=== PATIENT | male | born 1940 | race Caucasian/White ===

== ENCOUNTER → 2016-05-04 | Outpatient (CLI) | payer OTHER, MEDICARE ==
[~2016-05-04] MED LIST: AMLO-114 PO; AMR2 PO; ATOR-22 PO; FENO134C2 PO; FINA5TAB PO; MELO15TA3 PO; METF750T PO
== END | disposition home or self-care (01) ==
LOC: C.LAB 11:04
PROVIDERS: ATTEND Urology
DX: Z12.5 Encounter for screening for malignant neoplasm of prostate (principal)

== ENCOUNTER → 2016-07-19 | Outpatient (CLI) | payer OTHER, MEDICARE ==
[2016-07-19 12:39] LABS: HEMATOCRIT 37.1 % (42-52); MEAN CELL VOLUME 90.3 fL (80-100); MEAN CORPUSCULAR HEMOGLOBIN 31.1 pg (25-34); MEAN CORPUSCULAR HGB CONC 34.5 g/dl (32-36); PLATELET COUNT 190 K/uL (130-400); RED BLOOD COUNT 4.11 M/uL (4.7-6.1); WHITE BLOOD COUNT 5.79 K/uL (4.8-10.8)
[2016-07-19 12:43] LABS: URINE APPEARANCE CLEAR (CLEAR); URINE BILIRUBIN NEG (NEG); URINE COLOR YELLOW; URINE EPITHELIAL CELL AUTO 20-30 /lpf (0-5); URINE NITRITE NEG (NEG); URINE SPECIFIC GRAVITY 1.023 (1.000-1.030); UROBILINOGEN NEG (NEG)
[2016-07-19 12:44] LABS: MANUAL MICROSCOPIC REQUIRED? NO; REVIEW REQ? NO
[2016-07-19 13:05] LABS: ESTIMATED AVERAGE GLUCOSE 134 mg/dl; HA1C FLAG Normal (Normal)
[2016-07-19 13:35] LABS: BLOOD UREA NITROGEN 21 mg/dl (7-18); BUN/CREATININE RATIO 13.2 (10-20); CALCIUM 9.1 mg/dl (8.5-10.1); CARBON DIOXIDE 25 mmol/L (21-32); CHLORIDE 108 mmol/L (98-107); GLUCOSE 223 mg/dl (70-99); PHOSPHORUS 2.9 mg/dl (2.5-4.9); POTASSIUM 4.5 mmol/L (3.5-5.1); SODIUM 143 mmol/L (136-145)
[2016-07-19 14:38] LABS: URINE PROTIEN/CREAT RATIO 0.1 (0-0.2); URINE TOTAL PROTEIN 8.6 mg/dl (0-11.9)
== END | disposition home or self-care (01) ==
LOC: C.LABPBG 10:58
PROVIDERS: ATTEND Internal Medicine Nephrology
DX: N18.3 Chronic kidney disease, stage 3 (moderate) (principal); E11.9 Type 2 diabetes mellitus without complications; E55.9 Vitamin D deficiency, unspecified

== ENCOUNTER → 2016-07-22 | Outpatient (CLI) | payer OTHER, MEDICARE ==
--- NOTE | 2016-07-22 11:43 | DIAGNOSTIC IMAGING REPORT ---
RENAL ULTRASOUND CLINICAL HISTORY: N18.3 Chronic renal disease, stage 3 (moderate)[id number] COMPARISON STUDY: Abdomen and pelvis CT 07/16/2012. FINDINGS: Right kidney: 10.2 cm in length. No hydronephrosis. Slight increased cortical echogenicity and mild cortical lobulation/scarring. Left kidney: 11.7 cm in length. No hydronephrosis. Slight increased cortical echogenicity and mild cortical lobulation/scarring. There is a 1.1 cm cyst within the upper pole the left kidney. Bladder: Prostate gland is mildly enlarged. No bladder wall thickening. Bilateral ureteral jets are identified. IMPRESSION: 1. Mild bilateral cortical renal scarring/lobulation. 2. Slight increased cortical echogenicity suggestive of medical renal disease. 3. No hydronephrosis. Electronically signed by: Nigel Cortes M.D. 07/22/2016 11:41 AM Dictated Date/Time: 07/22/2016 11:38 AM
== END | disposition home or self-care (01) ==
LOC: C.ULTR 10:43
PROVIDERS: ATTEND Internal Medicine Nephrology
DX: N18.3 Chronic kidney disease, stage 3 (moderate) (principal)

== ENCOUNTER → 2017-03-21 | Outpatient (CLI) | payer OTHER, MEDICARE ==
[2017-03-21 13:53] LABS: ALBUMIN 3.8 gm/dl (3.4-5.0); BLOOD UREA NITROGEN 20 mg/dl (7-18); CALCIUM 9.3 mg/dl (8.5-10.1); CARBON DIOXIDE 26 mmol/L (21-32); CREATININE 1.61 mg/dl (0.60-1.40); GLUCOSE 161 mg/dl (70-99); POTASSIUM 4.2 mmol/L (3.5-5.1); SODIUM 141 mmol/L (136-145)
[2017-03-21 13:54] LABS: PHOSPHORUS 2.9 mg/dl (2.5-4.9)
== END | disposition home or self-care (01) ==
LOC: C.LABPBG 10:13
PROVIDERS: ATTEND Internal Medicine Nephrology
DX: N18.3 Chronic kidney disease, stage 3 (moderate) (principal)

== ENCOUNTER → 2017-04-25 | Outpatient (CLI) | payer OTHER, MEDICARE | END | disposition home or self-care (01) | LOC: C.LABPBG 10:10 | PROVIDERS: ATTEND Urology | DX: N40.1 Benign prostatic hyperplasia with lower urinary tract symptoms (principal) ==

== ENCOUNTER → 2017-06-23 | Outpatient (CLI) | payer OTHER, MEDICARE ==
[2017-06-23 13:45] LABS: HEMATOCRIT 35.1 % (42-52); HEMOGLOBIN 12.4 g/dL (14.0-18.0); MEAN CELL VOLUME 89.8 fL (80-100); MEAN CORPUSCULAR HEMOGLOBIN 31.7 pg (25-34); MEAN CORPUSCULAR HGB CONC 35.3 g/dl (32-36); MEAN PLATELET VOLUME 9.6 fL (7.4-10.4); PLATELET COUNT 160 K/uL (130-400); RED CELL DISTRIBUTION WIDTH CV 13.5 % (11.5-14.5); RED CELL DISTRIBUTION WIDTH SD 44.1 fL (36.4-46.3); WHITE BLOOD COUNT 6.14 K/uL (4.8-10.8)
[2017-06-23 14:08] LABS: HEMOGLOBIN A1C 5.7 % (4.5-5.6)
[2017-06-23 17:42] LABS: ALBUMIN 3.9 gm/dl (3.4-5.0); ALT/SGPT 32 U/L (12-78); AST/SGOT 16 U/L (15-37); BLOOD UREA NITROGEN 26 mg/dl (7-18); CALCIUM 8.8 mg/dl (8.5-10.1); CARBON DIOXIDE 25 mmol/L (21-32); CHOLESTEROL 105 mg/dl (0-200); CREATININE 1.56 mg/dl (0.60-1.40); GLUCOSE,FASTING 141 mg/dl (70-99); POTASSIUM 4.7 mmol/L (3.5-5.1); SODIUM 141 mmol/L (136-145)
[2017-06-23 17:51] LABS: ALKALINE PHOSPHATASE 44 U/L (45-117); LDL CHOLESTEROL (DIRECT) 57 mg/dl; TOTAL PROTEIN 7.2 gm/dl (6.4-8.2)
== END | disposition home or self-care (01) ==
LOC: C.LABPBG 11:17
PROVIDERS: ATTEND Internal Medicine Cardiovascular Disease
DX: E11.9 Type 2 diabetes mellitus without complications (principal); Z98.61 Coronary angioplasty status; Z79.899 Other long term (current) drug therapy; Z79.82 Long term (current) use of aspirin; I10 Essential (primary) hypertension; E78.5 Hyperlipidemia, unspecified

== ENCOUNTER → 2017-09-26 | Outpatient (CLI) | payer OTHER, MEDICARE ==
[~2017-09-26] MED LIST changes: -AMLO-114 PO; +AMLO10TA3 PO
[2017-09-26 13:14] LABS: ALBUMIN 3.7 gm/dl (3.4-5.0); BLOOD UREA NITROGEN 21 mg/dl (7-18); CALCIUM 8.4 mg/dl (8.5-10.1); CARBON DIOXIDE 24 mmol/L (21-32); GLUCOSE 162 mg/dl (70-99); PHOSPHORUS 3.2 mg/dl (2.5-4.9); POTASSIUM 4.5 mmol/L (3.5-5.1); SODIUM 139 mmol/L (136-145)
== END | disposition home or self-care (01) ==
LOC: C.LABPBG 10:54
PROVIDERS: ATTEND Internal Medicine Nephrology
DX: N18.3 Chronic kidney disease, stage 3 (moderate) (principal)

== ENCOUNTER 2018-03-23 04:50 | Inpatient (IN) ==
--- NOTE | 2018-03-01 13:05 | PAT Medication Instructions ---
Medication Instructions Date of Service March 01, 2018 Home Medications atorvastatin [Lipitor]20 mg PO HS clopidogrel [Plavix]75 mg PO QPM fenofibrate ptctibvsqjazfvic610 mg PO QPM finasteride [Proscar]5 mg PO QPM glipizide5 mg PO QAM kbkbcejhue21 mg PO QAM magnesium ygfoi125 mg PO QAM zmqicxjxu014 mg PO BID nitroglycerin [Nitrostat]1 tab SUBLINGUAL UD PRN pptdiputpd70 mg PO QAM oxybutynin chloride5 mg PO BID ASK your prescriber and surgeon clopidogrel [Plavix]75 mg PO QPM STOP taking 24 hours before surgery fenofibrate jtddzsppqbymxyzl882 mg PO QPM DO NOT take the morning of surgery glipizide5 mg PO QAM dvmzznegnl18 mg PO QAM magnesium kovbc807 mg PO QAM hnffwedue960 mg PO BID Take morning of surgery With a small sip of water, OTHERWISE NOTHING TO EAT OR DRINK AFTER MIDNIGHT: nitroglycerin [Nitrostat]1 tab SUBLINGUAL UD PRN (if needed) zracpmxocc03 mg PO QAM oxybutynin chloride5 mg PO BID Take evening before surgery atorvastatin [Lipitor]20 mg PO HS finasteride [Proscar]5 mg PO QPM fepsvpcng261 mg PO BID nitroglycerin [Nitrostat]1 tab SUBLINGUAL UD PRN (if needed) oxybutynin chloride5 mg PO BID Other Notes If you have any questions please call us at [phone] or [phone] or [phone] or [phone]
--- NOTE | 2018-03-02 10:25 | Anesthesiology Consultation ---
Date of Service March 02, 2018 Assessment & Plan (1) Encounter for pre-operative examination: Plan: - Check BSG AM DOS - Cardio= 02/28/18= reviewed 04/2017 stress test.. "no cardiac contraindication to proceeding on with the planned right shoulder surgery... he will require perioperative cardiac monitoring in light of his history of severe ischemic heart disease." Plavix instructions per surgeon/cardio; patient continuing ASA perioperatively. Chart Review Chart Review: Acceptable Risk for Surgery and Patient seen in Pre Admission Testing Teaching & Discussion Pre-Anesthesia Teaching/Discussion Notes: Instructed NPO after midnight before surgery,except medications with 15 cc of water. Medication instructions provided according to the PAT guidelines. History Surgery Operation Date: 03/23/18 07:10 Proposed Procedures p Right Total Shoulder Arthroplasty Mick - Israel Patrick MD Height/Weight Height: 5 ft 8 in Weight: 96.1 kg Allergies Allergy/AdvReac Type Severity Reaction Status Date / Time No Known Allergies Allergy Mild Verified 02/23/18 09:31 Medications Home Medications Medication Instructions Recorded Confirmed Last Taken atorvastatin [Lipitor] 20 mg PO HS 02/23/18 02/23/18 Unknown clopidogrel [Plavix] 75 mg PO QPM 02/23/18 02/23/18 Unknown fenofibrate nanocrystallized 160 mg PO QPM 02/23/18 02/23/18 Unknown [Tricor] finasteride [Proscar] 5 mg PO QPM 02/23/18 02/23/18 Unknown glipizide 5 mg PO QAM 02/23/18 02/23/18 Unknown lisinopril 10 mg PO QAM 02/23/18 02/23/18 Unknown magnesium oxide 400 mg PO QAM 02/23/18 02/23/18 Unknown metformin 750 mg PO BID 02/23/18 02/23/18 Unknown nitroglycerin [Nitrostat] 1 tab SUBLINGUAL UD PRN 02/23/18 02/23/18 Unknown omeprazole 20 mg PO QAM 02/23/18 02/23/18 Unknown oxybutynin chloride 5 mg PO BID 02/23/18 02/23/18 Unknown aspirin [Aspirin Low Dose] 1 tab PO HS 03/02/18 03/02/18 Unknown metoprolol succinate 1 tab PO DAILY 03/02/18 03/02/18 Unknown Past Medical History Medical History BPH (benign prostatic hyperplasia) CAD (coronary artery disease) STENTS X 5 TOTAL (MOST RECENT 2015= STENTS X3) CKD (chronic kidney disease) BASELINE CREATININE 1.5-1.6 PER CHART REVIEW Diabetes mellitus, type 2 NIDDM GERD (gastroesophageal reflux disease) CONTROLLED Hyperlipidemia Hypertension Kidney stones Myocardial Infarction 7+ YEARS AGO Obesity Osteoarthritis Past Family History Family History Mother Family hx of colon cancer Past Surgical History Surgical History H/O cystoscopy WITH STENT/STONE REMOVAL History of cardiac cath 01/2013= STENTS X 1 05/2013= STENT X 1 04/2015= STENTS X 3 History of cholecystectomy History of total hip arthroplasty LEFT Hx of transurethral resection of prostate Past Anesthesia History No Hx of Anesthesia Complications and No Family Hx of Anesthesia Complications History of PONV No Motion Sickness Screening History of Motion Sickness: No Social History Smoking Status: Former smoker tobacco type: cigarettes Do You Dip or Chew Tobacco: No (QUIT 30 YRS AGO) Smoking End Date: QUIT 30 YEARS AGO Hx Alcohol Use: No Hx Substance Use: No Exercise / Class Metabolic Activity III < 4 Walking/Shop/Light housework Review of Systems Reflux controlled. Right shoulder pain with RUE radiculopathy/neuropathy. Patient denies chest pain, shortness of breath, cough, wheezing, palpitations. Physical Exam Vital Signs VITALS BP 124/76 P 69 TEMP 97.8 SP02 97%RA RESP 18 Full neck and c-spine range of motion. Full TMJ range of motion. TMD 3 finger breaths Mallampati Score 2 Dentition: full dentures upper/lower; edentulous Lungs: clear throughout to auscultation Cardiac: regular rate and rhythm, no murmurs noted Spine: normal Carotid arteries: negative bruit Extremities: no edema Testing Electrocardiogram Date: 02/28/18 SR with first degree AVB at 92bpm. Low voltage QRS. RBBB. NS ST/TWA. Echocardiogram Date: 05/01/17 EF 55%. No RWMA. AV/MV sclerotic changes. Mitral annular calcification. Mild UT/ TI/PI. Mild ascending aorta dilation 4.2cm. Stress Test Date: 05/24/17 Type: nuclear (LEXISCAN) Normal myocardiac perfusion SPECT images without evidence for induced ischemia. LVEF 65%. Inconclusive stress EKG secondary to baseline ST/TWA. Laboratory Results 03/02/18 10:58 Blood Type A Negative 03/02/18 10:58 Antibody Screen NEGATIVE 03/02/18 10:58 PT 10.6 Seconds (9.0-12.0) 03/02/18 10:58 INR 1.1 (0.9-1.1) 03/02/18 10:58 APTT 25.4 Seconds (21.0-31.0) 03/02/18 10:58 Hemoglobin A1c 5.8 % (4.5-5.6) H 03/02/18 10:58 Urine Color Yellow 03/02/18 10:58 Urine Appearance Clear (Clear) 03/02/18 10:58 Urine pH 5.0 (4.5-7.5) 03/02/18 10:58 Ur Specific [place] 1.013 (1.000-1.030) 03/02/18 10:58 Urine Protein Negative (Negative) 03/02/18 10:58 Urine Glucose (UA) Negative (Negative) 03/02/18 10:58 Urine Ketones Negative (Negative) 03/02/18 10:58 Urine Nitrite Negative (Negative) 03/02/18 10:58 Ur Leukocyte Esterase Negative (Negative) 03/02/18 10:58 02/06/18 SODIUM 143 POTASSIUM 4.6 CHLORIDE 108 CO2 26 BUN 20 CREATININE 1.57 GLUCOSE 132 HGBA1C 5.6%
[2018-03-02 11:45] LABS: Basophils # (auto) 0.02 K/uL (0-0.2); Basophils % (auto) 0.3 %; Eosinophils # (auto) 0.18 K/uL (0-0.5); Eosinophils % (auto) 2.7 %; Hemoglobin 12.2 g/dL (14.0-18.0); Immature Granulocytes # (auto) 0.02 K/uL (0.00-0.02); Immature Granulocytes % (auto) 0.3 %; Lymphocytes # (auto) 1.61 K/uL (1.2-3.4); Mean Corpuscular Hgb Conc 34.9 g/dL (32-36); Mean Corpuscular Volume 90.9 fL (80-100); Mean Platelet Volume 9.8 fL (7.4-10.4); Monocytes # (auto) 0.59 K/uL (0.11-0.59); Monocytes % (auto) 8.8 %; Neutrophils % (auto) 63.9 %; Platelet Count 156 K/uL (130-400); RDW Coefficient of Variation 13.4 % (11.5-14.5); RDW Standard Deviation 44.3 fL (36.4-46.3); Red Blood Count 3.85 M/uL (4.7-6.1); White Blood Count 6.72 K/uL (4.8-10.8)
[2018-03-02 11:46] LABS: Appearance Urine Clear (Clear); Bilirubin Urine Negative (Negative); Color Urine Yellow; Glucose Urine UA Negative (Negative); Ketones Urine Negative (Negative); Leukocyte Esterase Urine Negative (Negative); Nitrite Urine Negative (Negative); Protein Urine Negative (Negative); Specific Gravity Urine 1.013 (1.000-1.030); Urobilinogen Urine Negative (Negative)
[2018-03-02 12:11] LABS: Estimated Average Glucose 120 mg/dl; INR 1.1 (0.9-1.1); Partial Thromboplastin Time 25.4 Seconds (21.0-31.0); Prothrombin Time 10.6 Seconds (9.0-12.0)
--- NOTE | 2018-03-05 15:32 | History & Physical Report ---
Date of Service March 05, 2018 Assessment & Plan (1) Primary osteoarthritis, right shoulder: Treatment optiosn were discussed with the patient. He has failed conservative measures as above. Pain is affecting his activities of daily life. Risks, benefits and alternatives to surgery including but not limited to infection, DVT, pain, stiffness, need for revision surgery, damage to blood vessels, damage to nerves, PE, , were discussed with the patient and they wish to proceed. Plan will be for right shoulder reverse total shoulder arthroplasty. All questions were answered. He will follow up post operatively. Plans to return home with home physical therapy upon discharge. History of Present Illness Chief Complaint: Right Shoulder pain Primary Care Provider: Alfred Corrales Patient is a 77 year old male with significant right shoulder pain for the past several years. PMHx significant for MD, HTN, DM2, GERD, CKD, high cholesterol. He has failed conservative measures including cortisone injections and physical therapy. He would like to proceed with right shoulder reverse total shoulder arthroplasty. Patient denies headaches, sweats, fevers, chills, double vision, blurred vision, cough, sore throat, dysphagia, chest pain, sob, wheezing, n/v/d/ c, numbness, tingling, fatigue, urinary symptoms, mood disorders. ROS positive for right shoulder pain and stiffness. Allergies Allergy/AdvReac Type Severity Reaction Status Date / Time No Known Allergies Allergy Mild Verified 02/23/18 09:31 Home Medications Home Medications Medication Instructions Recorded Confirmed Type atorvastatin [Lipitor] 20 mg PO HS 02/23/18 02/23/18 History clopidogrel [Plavix] 75 mg PO QPM 02/23/18 02/23/18 History fenofibrate nanocrystallized 160 mg PO QPM 02/23/18 02/23/18 History [Tricor] finasteride [Proscar] 5 mg PO QPM 02/23/18 02/23/18 History glipizide 5 mg PO QAM 02/23/18 02/23/18 History lisinopril 10 mg PO QAM 02/23/18 02/23/18 History magnesium oxide 400 mg PO QAM 02/23/18 02/23/18 History metformin 750 mg PO BID 02/23/18 02/23/18 History nitroglycerin [Nitrostat] 1 tab SUBLINGUAL UD PRN 02/23/18 02/23/18 History omeprazole 20 mg PO QAM 02/23/18 02/23/18 History oxybutynin chloride 5 mg PO BID 02/23/18 02/23/18 History aspirin [Aspirin Low Dose] 1 tab PO HS 03/02/18 03/02/18 History metoprolol succinate 1 tab PO DAILY 03/02/18 03/02/18 History Past Med/Surg History Medical History BPH (benign prostatic hyperplasia) CAD (coronary artery disease) STENTS X 5 TOTAL (MOST RECENT 2015= STENTS X3) CKD (chronic kidney disease) BASELINE CREATININE 1.5-1.6 PER CHART REVIEW Diabetes mellitus, type 2 NIDDM GERD (gastroesophageal reflux disease) CONTROLLED Hyperlipidemia Hypertension Kidney stones Myocardial Infarction 7+ YEARS AGO Obesity Osteoarthritis Surgical History H/O cystoscopy WITH STENT/STONE REMOVAL History of cardiac cath 01/2013= STENTS X 1 05/2013= STENT X 1 04/2015= STENTS X 3 History of cholecystectomy History of total hip arthroplasty LEFT Hx of transurethral resection of prostate Family History Mother Family hx of colon cancer Social History Current Living Situation: Spouse Other Information That Helps Us Care for You: No Feels Safe at Home: Yes Safety Concerns: Feels Safe At This Time Smoking Status: Former smoker Tobacco Type: cigarettes Do You Dip or Chew Tobacco: No (QUIT 30 YRS AGO) Smoking End Date: QUIT 30 YEARS AGO Hx Alcohol Use: No Hx Substance Use: No Beliefs That Will Affect Care: None Preferred Language: Frisian Communication Ability: Effective Cupola Operator Required: No Review of Systems All systems reviewed & are unremarkable except as noted in HPI & below Physical Exam 2 Constitutional: well developed and well nourished; no acute distress Eyes: PERRL, conjunctivae normal, anicteric sclerae ENMT: external ear and nose normal, oropharynx normal Neck: trachea midline, no thyromegaly Respiratory: normal respiratory effort, lungs clear to auscultation Cardiovascular: RRR, no murmur, no edema Musculoskeletal: Right Shoulder-Pain ROM. Crepitus noted with passive motion. ER neutral, abduction to 80 degrees, FF to 100. Positive impingement signs. Skin: no rashes, warm and dry Neurologic: patellar DTR's 2+ bilat, sensation intact Psychiatric: A+Ox3, euthymic affect Results & Data Laboratory Results Lab Results 03/02/18 03/02/18 03/02/18 Range/Units 10:58 10:58 10:58 WBC 6.72 (4.8-10.8) K/uL RBC 3.85 L (4.7-6.1) M/uL Hgb 12.2 L (14.0-18.0) g/dL Hct 35.0 L (42-52) % MCV 90.9 (80-100) fL MCH 31.7 (25-34) pg MCHC 34.9 (32-36) g/dL RDW Std Deviation 44.3 (36.4-46.3) fL RDW Coeff of Raymond 13.4 (11.5-14.5) % Plt Count 156 (130-400) K/uL MPV 9.8 (7.4-10.4) fL Immature Gran % (Auto) 0.3 % Neut % (Auto) 63.9 % Lymph % (Auto) 24.0 % Bath % (Auto) 8.8 % Eos % (Auto) 2.7 % Baso % (Auto) 0.3 % Immature Gran # (Auto) 0.02 (0.00-0.02) K/uL Neut # (Auto) 4.30 (1.4-6.5) K/uL Lymph # (Auto) 1.61 (1.2-3.4) K/uL Bath # (Auto) 0.59 (0.11-0.59) K/uL Eos # (Auto) 0.18 (0-0.5) K/uL Baso # (Auto) 0.02 (0-0.2) K/uL PT 10.6 (9.0-12.0) Seconds INR 1.1 (0.9-1.1) APTT 25.4 (21.0-31.0) Seconds PTT Ratio 1.0 Estimat Average Glucose mg/dl Hemoglobin A1c (4.5-5.6) % Albumin 3.8 (3.4-5.0) gm/dl Urine Color Urine Appearance (Clear) Urine pH (4.5-7.5) Ur Specific [place] (1.000-1.030) Urine Protein (Negative) Urine Glucose (UA) (Negative) Urine Ketones (Negative) Urine Blood (Negative) Urine Nitrite (Negative) Urine Bilirubin (Negative) Urine Urobilinogen (Negative) Ur Leukocyte Esterase (Negative) Blood Type Antibody Screen 03/02/18 03/02/18 03/02/18 Range/Units 10:58 10:58 10:58 WBC (4.8-10.8) K/uL RBC (4.7-6.1) M/uL Hgb (14.0-18.0) g/dL Hct (42-52) % MCV (80-100) fL MCH (25-34) pg MCHC (32-36) g/dL RDW Std Deviation (36.4-46.3) fL RDW Coeff of Raymond (11.5-14.5) % Plt Count (130-400) K/uL MPV (7.4-10.4) fL Immature Gran % (Auto) % Neut % (Auto) % Lymph % (Auto) % Bath % (Auto) % Eos % (Auto) % Baso % (Auto) % Immature Gran # (Auto) (0.00-0.02) K/uL Neut # (Auto) (1.4-6.5) K/uL Lymph # (Auto) (1.2-3.4) K/uL Bath # (Auto) (0.11-0.59) K/uL Eos # (Auto) (0-0.5) K/uL Baso # (Auto) (0-0.2) K/uL PT (9.0-12.0) Seconds INR (0.9-1.1) APTT (21.0-31.0) Seconds PTT Ratio Estimat Average Glucose 120 mg/dl Hemoglobin A1c 5.8 H (4.5-5.6) % Albumin (3.4-5.0) gm/dl Urine Color Yellow Urine Appearance Clear (Clear) Urine pH 5.0 (4.5-7.5) Ur Specific [place] 1.013 (1.000-1.030) Urine Protein Negative (Negative) Urine Glucose (UA) Negative (Negative) Urine Ketones Negative (Negative) Urine Blood Negative (Negative) Urine Nitrite Negative (Negative) Urine Bilirubin Negative (Negative) Urine Urobilinogen Negative (Negative) Ur Leukocyte Esterase Negative (Negative) Blood Type A Negative Antibody Screen NEGATIVE Diagnostic Findings Right shoulder radiographs: Bone on bone glenohumeral joint, humeral head elevation, osteophyte off of the greater tuberosity and inferior humeral head, mild flattening of the glenoid.
[2018-03-23] MEDS ORDERED: GABAPENTIN 300 MG PO SCH (06:00)
[2018-03-23] MEDS ORDERED: ACETAMINOPHEN 500 MG TAB PO SCH (06:00)
[2018-03-23] MEDS ORDERED: ROPIVACAINE 0.5% HCL/PF 150 MG, BUPIVACAINE 0.5% MPF 30 ML, EPINEPHrine 30MG/30ML (OR U... INFIL SCH (06:00)
[2018-03-23] MEDS ORDERED: LR 15ML/HR IV SCH (06:00)
[2018-03-23] MEDS ORDERED: FAMOTIDINE 20 MG TAB PO SCH (06:00)
[2018-03-23] MEDS ORDERED: CeleBREX 200 MG CAP PO SCH (06:00)
[2018-03-23] MEDS ORDERED: CEFAZOLIN 2000MG 2,000 MG/15 ML SYR IV SCH (06:00)
[2018-03-23] MEDS ORDERED: dexAMETHasone 4 MG TAB PO SCH (06:00)
[2018-03-23] MEDS ORDERED: METOCLOPRAMIDE HCL 10 MG TABLET PO SCH (06:00)
[2018-03-23] MEDS ORDERED: DEXAMETHASONE SOD INJ 4 MG/ML VIAL ONE (06:20)
[2018-03-23] MEDS ORDERED: ONDANSETRON INJ 2 MG/ML 2 ML VIAL ONE (06:20)
[2018-03-23] MEDS ORDERED: PROPOFOL IV EMULSION 10 MG/ML 20 ML VIAL IV ONE (06:20)
[2018-03-23] MEDS ORDERED: SUCCINYLCHOLINE CHLORIDE 20 MG/ML 10 ML VIAL ONE (06:20)
[2018-03-23] MEDS ORDERED: fentaNYL citrate 100 MCG/2 ML VIAL ONE (06:20)
[2018-03-23] MEDS ORDERED: LIDOCAINE HCL 2% 2 ML VIAL/AMP(20MG/ML) INFIL ONE (06:20)
[2018-03-23] MEDS ORDERED: MIDAZOLAM HCL 1 MG/ML 2ML VIAL ONE (06:20)
[2018-03-23] MEDS ORDERED: POVIDONE-IODINE OP SOLN 30 ML BTL ONE (06:34)
[2018-03-23] MEDS ORDERED: ORTHO JOINT ANESTHETIC ONE (06:34)
[2018-03-23] MEDS ORDERED: THROMBIN FOR SOLN 20000 UNIT KIT ONE (06:35)
[2018-03-23] MEDS ORDERED: VANCOMYCIN HCL 1000MG/20ML VIAL ONE (06:35)
[2018-03-23] MEDS ORDERED: BACITRACIN INJ 50,000 UNIT VIAL ONE (06:35)
[2018-03-23] MEDS ORDERED: ROPIVACAINE 0.5% 5 MG/ML 30 ML VIAL ONE (06:38)
--- NOTE | 2018-03-23 06:47 | History & Physical Bridge Note ---
Date of Service March 23, 2018 History & Physical Bridge Note I have examined the patient, reviewed the History & Physical and in the interval since the performance of the History & Physical I have noted the following changes of clinical significance: no changes noted
[2018-03-23] MEDS ORDERED: ATROPINE SULFATE 0.1 MG/ML 10ML SYR IV PRN (07:09)
[2018-03-23] MEDS ORDERED: fentaNYL citrate 100 MCG/2 ML VIAL IV PRN (07:09)
[2018-03-23] MEDS ORDERED: ePHEDrine sulfate 50 MG/ML AMP IV PRN (07:09)
[2018-03-23] MEDS ORDERED: ONDANSETRON INJ 2 MG/ML 2 ML VIAL IV PRN ×2 (07:09→09:16)
[2018-03-23] MEDS ORDERED: ROCURONIUM BROMIDE 10 MG/ML 5 ML VIAL ONE (07:48)
--- NOTE | 2018-03-23 08:43 | Operative Report ---
Post Operative Report Pre & Post Diagnosis Operation Date: 03/23/18 07:00 Pre-Op Diagnosis: Right Shoulder Osteoarthritis, rotator cuff arthropathy Post-Op Diagnosis: Right Shoulder Osteoarthritis same plus tear of the long head of the biceps tendon Procedure Operation Date: 03/23/18 07:00 Actual Procedures p Right Reverse Total Shoulder Arthroplasty(Right) and biceps tenodesis- Israel Patrick MD Surgeon Israel Patrick MD [employer] Kd Downs PA-C Estimated Blood Loss 50 Findings Consistent with Post-Op Diagnosis Specimens Humeral head Drains 1 Hemovac Anesthesia Type General Regional Complications none Disposition Disposition: Recovery Room Indications The patient is a 77-year-old male long-standing arthritic changes in the right shoulder with humeral head elevation. He is failed conservative measures including injection, anti-inflammatories, rehab. He wishes to proceed with a right total shoulder arthroplasty, reverse Description of Procedure Risks, benefits and alternatives to surgery including, but not limited to, infection DVT, pain, stiffness, need for revision surgery, failure to relieve all symptoms, damage to blood vessels, damage to nerves, risk of anesthesia were discussed with the patient and they wished to proceed. The patient was identified. Laterality was confirmed and marked. The patient received a preoperative antibiotic as well as an interscalene block. They were transferred to the operating room and placed in the supine position and induced into general endotracheal anesthesia per the anesthesia staff. The patient was then safely transferred to a slight beachchair position. The patient was secured in the Tenet positioner. All pressure points were well padded. The shoulder was prepped and draped in the usual sterile manner with ChloraPrep. The arm was secured in the Spider fay. I made a longitudinal incision just lateral to the coracoid, sharply incising through the skin and utilizing Bovie electrocautery to achieve hemostasis. I identified the cephalic vein and mobilized it laterally with the deltoid. I mobilize the pectoralis and mobilize this medially releasing a small portion of the upper border of the pec tendon to improve visualization. I then identified and mobilized the conjoined tendon. I identified the long head of the biceps tendon. The long head of the biceps tendon had significant tendinosis and tearing proximally. I performed an in situ biceps tenodesis with interrupted #2 FiberWire suture. I then released the subscapularis. I pinned into place my humeral head version cutting guide and made my humeral head resection. I then sequentially reamed and sequentially broached. I then placed the trial humeral stem into the shoulder. I placed retractors around the glenoid and then excised the residual biceps tendon stump and glenoid labrum. I elevated the soft tissues and the inferior aspect of the glenoid to improve exposure and released tissues circumferentially. I then positioned and drilled for the central post for the glenoid plate. The glenoid plate was bone grafted with bone taken from the humeral head. I impacted the definitive glenoid plate into position and then placed a total of 4 compression screws that were then locked into position with locking caps. I then placed the glenosphere onto the plate and secured it with a locking screw. I then removed the trial humeral stem and placed the definitive humeral stem. I trialed off of the definitive stem. The definitive components used were [employer] Equinox: Preserve short humeral press-fit stem: 10 Standard glenoid plate Glenosphere: 42 Humeral tray:+ 0 Humeral polyethylene liner: + 2.5 I thoroughly irrigated the wound. Deep tissues were anesthetized with an orthomix solution. I then locked my definitive humeral tray into position with a torque limiting screw. I then impacted the definitive humeral polyethylene liner into position. I then reduced the shoulder. There was good range of motion and good stability after the reduction. The wound was again thoroughly irrigated and a Betadine soak was performed. A deep drain was placed. The deltopectoral interval was closed with interrupted #1 Ethibond suture. The subcutaneous tissue was closed with interrupted 2-0 Vicryl suture. The skin was closed with janay. A sterile dressing was applied. A sling was placed. All needle and sponge counts were correct at the end of the procedure. The patient was transferred to the PACU in stable condition without apparent complication. The PA-C was necessary for assistance with procedure for assistance in positioning, prepping, draping, retraction and closure. I attest to the content of the Intraoperative Record and any orders documented therein. Any exceptions are noted below.
[2018-03-23] MEDS ORDERED: NITROGLYCERIN SL 0.4 MG/TAB TAB SL PRN (09:14)
[2018-03-23] MEDS ORDERED: MAGNESIUM HYDROXIDE SUSP 30 ML UDC PO PRN (09:16)
[2018-03-23] MEDS ORDERED: METOCLOPRAMIDE HCL INJ 5 MG/ML 2 ML VIAL IV PRN (09:16)
[2018-03-23] MEDS ORDERED: BISACODYL 10 MG SUPP PR PRN (09:16)
[2018-03-23] MEDS ORDERED: TAMSULOSIN HCL 0.4 MG CAP PO PRN (09:16)
[2018-03-23] MEDS ORDERED: NALOXONE HCL 0.4 MG/1 ML VIAL/CARP IV PRN (09:16)
[2018-03-23] MEDS ORDERED: OXYCODONE HCL IR 5 MG TAB (IMMEDIATE RELEASE) PO PRN (09:16)
[2018-03-23] MEDS ORDERED: MoRPHine SULFATE 4 MG/ML 1 ML CARP\\VIAL IV PRN (09:21)
[2018-03-23] MEDS ORDERED: PHARMACY GLYCEMIC MGMT CONSULT PRN (09:41)
--- NOTE | 2018-03-23 09:50 | Anesthesiology Progress Note ---
Date of Service March 23, 2018 Anesthesia Post Procedure Vital Signs Vital Signs: Temp Pulse Pulse Resp BP Pulse Ox 03/23/18 09:40 63 16 120/67 99 03/23/18 09:30 66 18 125/71 100 03/23/18 09:20 67 17 132/70 95 03/23/18 09:13 96.8 F L 84 12 127/68 95 03/23/18 05:45 98.4 F 75 20 140/80 97 Notes Mental Status: alert / awake / arousable and participated in evaluation Patient Amnestic to Procedure: Yes Nausea / Vomiting: adequately controlled Pain: adequately controlled Airway Patency, RR, SpO2: stable & adequate BP & HR: stable & adequate Hydration State: stable & adequate Anesthetic Complications: no major complications apparent and Pt Satisfied with anesthetic care
--- NOTE | 2018-03-23 09:52 | XRay Report ---
XR shoulder RT min 2V routine CLINICAL HISTORY: Post shoulder surgery COMPARISON: None. DISCUSSION: There are postsurgical changes of a reverse total right shoulder arthroplasty. There is n o dislocation. Overlying skin janay and surgical drains. There is air within the soft tissues consi stent with recent surgery. IMPRESSION: Postsurgical changes of a reverse total right shoulder arthroplasty. Electronically signed by: Will Reyes M.D. 03/23/2018 9:50 AM
[2018-03-23] MEDS ORDERED: GLUCAGON FOR INJ 1 MG VIAL SQ PRN (10:39)
[2018-03-23] MEDS ORDERED: GLUCOSE 40% GEL 15 GM TUBE PO PRN (10:39)
[2018-03-23] MEDS ORDERED: DEXTROSE 50% 50 ML SYRINGE IV PRN (10:39)
[2018-03-23] MEDS ORDERED: CARBOHYDRATES FOR HYPOGLYCEMIA PO PRN (10:39)
[2018-03-23] MEDS ORDERED: GLUCOSE 10 TABS/TUBE PO PRN (10:39)
[2018-03-23] MEDS ORDERED: INSULIN GLARGINE SOLOSTAR 100 UNITS/ML 3 ML PEN SC ONE ×2 (10:45→21:00)
[2018-03-23] MEDS: INSULIN ASPART 100 UNITS/ML 3 ML PEN SC SCH ×3 (12:09→20:53)
[2018-03-23] MEDS: SODIUM CHLORIDE 0.9% 1000ML 1,000 ML IV SCH ×2 (12:24→20:59)
[2018-03-23] MEDS ORDERED: NURSING DECISION MEDICATION ONE (13:54)
[2018-03-23] MEDS ORDERED: COUGH DROP (SUGAR FREE) LOZ 24 LOZ/1 BOX BUCCAL PRN (13:57)
--- NOTE | 2018-03-23 14:17 | Pharmacy Report ---
Glycemic Control Consultation - Date of Service March 23, 2018 - Scope Scope: Glycemic Pharmacist consulted by Corwin Downs on 03/23/18 for glycemic control and to write orders per [facility] inpatient glycemic control protocol - Objective Weight: 97.6 kg Accuchecks BSG (last 24hrs): 03/23/18 03/23/18 03/23/18 05:31 09:19 11:04 POC Glucose 159 H 172 H 215 H HbA1c: Hemoglobin A1c 5.8 % (4.5-5.6) H 03/02/18 10:58 - Recent Pertinent Medications Outpatient Anti-diabetic Regimen: * Glipizide ER 5 mg qAM * Metformin ER 750 mg BID * A1c = 5.8 % 03/02/18 Risk Factors for Insulin Resistance: * Steroids: Decadron 8 mg po preop + Decadron 4 mg IV intraop * Recent Surgery: POD 1 s/p R shoulder surgery * Diet: type 2 diabetes diet ordered postop - Assessment & Plan Assessment & Plan: ASSESSMENT: * Mr. Mcgovern is a 77 y/o male admitted s/p shoulder surgery. He has type 2 diabetes well controlled on oral agents. In the immediate postop period, will plan to utilize insulin based on insulin calculator estimates using patient's weight and stress level between 2 and 3. Being more aggressive due to periop steroid dosing. PLAN FOR INPATIENT GLYCEMIC CONTROL: * Hold outpatient oral diabetes medications - can plan to resume POD 1 or 2, as long as patient meets criteria * Basal insulin * Lantus 25 units SQ x 1 on arrival to floor * Lantus dose tonight based on the following scale: * Hold for BSG < 180 * 10 units for BSG 180 or above * Further basal dosing dependent upon BSGs * Bolus insulin * NovoLog per scale ACHS + 0200 * Goal Range: Low 110 mg/dL - High 140 mg/dL * Correction Factor: 15 mg/dL/unit * Nutritional / Prandial insulin per carb ratio of 1 unit per 5 grams CHO consumed Discharge Recommendations: * A1c indicates excellent outpatient control; resume oral agents on discharge Thank you.
[2018-03-23] MEDS: METOPROLOL SUCC 25MG EXT REL TAB PO SCH (14:21)
[2018-03-23] MEDS: CEFAZOLIN 2000MG 2,000 MG/15 ML SYR IV SCH ×2 (14:22→21:55)
[2018-03-23] MEDS: ACETAMINOPHEN 500 MG TAB PO SCH ×2 (14:22→21:53)
--- NOTE | 2018-03-23 14:57 | Hospitalist Consultation ---
Date of Consultation March 23, 2018 Assessment & Plan (1) Primary osteoarthritis, right shoulder: - S/p right reverse total shoulder arthroplasty this morning. - Pain control & DVT ppx per primary team. - PT/OT ordered. - Bowel regimen. - IVFs at 100 cc/hr. - Follow CBC to monitor for drop in H/H. (2) CAD (coronary artery disease): - S/p stent placement x 5 (2012, 2013 and 2015) - Follows with Dr. Castle from cardiology. - Continue Lipitor 20 mg qhs, Plavix 75 mg daily, Aspirin 81 mg daily and Metoprolol succinate 12.5 mg daily as prescribed. - Most recent TTE April 2017 showed EF 55%; stress test in April 2017 was also negative. - Will need upgraded to telemetry for development of cardiac related symptoms. (3) Ascending aorta dilation: - Echo April 2017 showed dilation of ascending aorta, 4.2 cm. - Will need to monitor in future. (4) CKD (chronic kidney disease), stage III: - Follows with nephrology. - Renally dose all meds. (5) Diabetes mellitus type II, controlled: - Most recent A1C was 5.8 on 03/02/18. - Hold home meds; start SSI coverage and consult pharmacy for glycemic management. (6) GERD (gastroesophageal reflux disease): - Protonix 40 mg PO daily. (7) HLD (hyperlipidemia): - Continue statin as prescribed. (8) Hypertension: - Continue Metoprolol 12.5 mg daily as prescribed. - Hold ACEI pending evaluation of renal function in AM. (9) BPH (benign prostatic hyperplasia): - Continue Proscar and Flomax as prescribed. (10) DVT prophylaxis: - Per ortho. Dispo: Will continue to follow, call with any questions. Supervising Physician Co-Signing Physician Notes PA Supervision Note: I personally saw and examined the patient. I verified all jasso points and agree with NAVARRO Chandra with the following exceptions and/or additions: Pt doing well post-op, pain controlled. Denies CP or SOB. No lightheadedness or dizziness. History reviewed as above Vitals reviewed HEENT: mild right eyelid ptosis but pt thinks is chronic, CN 2-12 otherwise intact, OP clear RRR no mgr CTAB no wcr Abd +BS soft NT ND Ext: Right UE in sling, dressing in place over rt shoulder, no calf tenderness, no LE edema 77 yo male with history as noted above, here with right reverse TSA, stable post -op, watch for chest pain or other signs of cardiac issues -plan as above otherwise History of Present Illness Reason for Consultation: Medical management Attending Physician: Israel Patrick MD History of Present Illness Mr. Mcgovern is a 77 y/o male with past medical history of BPH, CAD, CKD stage III , DM, GERD, HLD, HTN, Obesity and Osteoarthritis who presented for a planned right reverse total shoulder arthroplasty. Pt. was doing well post operatively. He denied significant pain in the right shoulder. Denies chest pain, SOB, LE edema. Denies urinary retention or dysuria, abdominal pain, N/V, constipation or diarrhea. He has a history of CAD, most recent stent placement was in 2015. Follows with Dr. Castle. Allergies Allergy/AdvReac Type Severity Reaction Status Date / Time No Known Allergies Allergy Mild Verified 03/23/18 05:57 Home Medications Home Medications Medication Instructions Recorded Confirmed Type atorvastatin [Lipitor] 20 mg PO HS 02/23/18 03/23/18 History clopidogrel [Plavix] 75 mg PO QPM 02/23/18 03/23/18 History fenofibrate nanocrystallized 160 mg PO QPM 02/23/18 03/23/18 History [Tricor] finasteride [Proscar] 5 mg PO QPM 02/23/18 03/23/18 History glipizide 5 mg PO QAM 02/23/18 03/23/18 History lisinopril 10 mg PO QAM 02/23/18 02/23/18 History magnesium oxide 400 mg PO QAM 02/23/18 02/23/18 History metformin 750 mg PO BID 02/23/18 03/23/18 History nitroglycerin [Nitrostat] 1 tab SUBLINGUAL UD PRN 02/23/18 02/23/18 History omeprazole 20 mg PO QAM 02/23/18 03/23/18 History oxybutynin chloride 5 mg PO BID 02/23/18 03/23/18 History aspirin [Aspirin Low Dose] 1 tab PO HS 03/02/18 03/23/18 History metoprolol succinate 1 tab PO DAILY 03/02/18 03/23/18 History Patient History Medical History BPH (benign prostatic hyperplasia) CAD (coronary artery disease) STENTS X 5 TOTAL (MOST RECENT 2015= STENTS X3) CKD (chronic kidney disease) BASELINE CREATININE 1.5-1.6 PER CHART REVIEW Diabetes mellitus, type 2 NIDDM GERD (gastroesophageal reflux disease) CONTROLLED Hyperlipidemia Hypertension Kidney stones Myocardial Infarction 7+ YEARS AGO Obesity Osteoarthritis Surgical History H/O cystoscopy WITH STENT/STONE REMOVAL History of cardiac cath 01/2013= STENTS X 1 05/2013= STENT X 1 04/2015= STENTS X 3 History of cholecystectomy History of total hip arthroplasty LEFT Hx of transurethral resection of prostate Family History Mother Family hx of colon cancer Social History marital status: Current Living Situation: Spouse Other Information That Helps Us Care for You: No Feels Safe at Home: Yes Safety Concerns: Feels Safe At This Time Smoking Status: Former smoker Tobacco Type: cigarettes Do You Dip or Chew Tobacco: No (QUIT 30 YRS AGO) Smoking End Date: QUIT 30 YEARS AGO Hx Alcohol Use: No Hx Substance Use: No Beliefs That Will Affect Care: None Communication Ability: Effective Review of Systems 14 point R.O.S. negative unless specified above. Physical Exam 2 Vital Signs (Past 24 Hours): Last Vital Signs Temp 36.8 C 03/23/18 13:13 Pulse 80 03/23/18 13:13 Resp 17 03/23/18 13:13 BP 138/78 03/23/18 13:13 Pulse Ox 96 03/23/18 13:13 Physical Exam: General: Resting comfortably in no apparent distress HEENT: NC/AT; PERRLA with EOMI; [place] conjunctiva, MMM. No erythema of posterior pharynx Neck: Supple and nontender Cardiac: RRR w/o murmurs, gallops or rubs Lungs: CTA bilaterally; No rhonchi, wheezing, or rales Abdomen: Bowel normoactive X 4; Nontender to palpation Extremities: Warm; drain in place, R shoulder with dressing intact. Neuro: No focal weakness Skin: No rash Results & Data Laboratory Results 03/23/18 03/23/18 03/23/18 Range/Units 11:04 09:19 05:31 POC Glucose 215 H 172 H 159 H (70-99)
[2018-03-23] MEDS: ATORVASTATIN 20 MG TAB PO SCH (20:49)
[2018-03-23] MEDS: DOCUSATE SODIUM 100 MG CAP PO SCH (20:49)
[2018-03-23] MEDS: ASPIRIN 81 MG ECTAB PO SCH (20:49)
[2018-03-23] MEDS: OXYBUTYNIN CHLORIDE 5 MG TAB PO SCH (20:49)
[2018-03-23] MEDS: FINASTERIDE 5 MG TAB PO SCH (20:49)
[2018-03-23] MEDS: CLOPIDOGREL BISULFATE 75 MG TAB PO SCH (20:49)
[2018-03-23] MEDS: SENNA 8.6 MG TAB PO SCH (20:50)
[2018-03-23] MEDS ORDERED: Nursing to Pharmacy Communication ONE (21:01)
[2018-03-24] MEDS ORDERED: INSULIN ASPART 100 UNITS/ML 3 ML PEN SC ONE (02:00)
[2018-03-24] MEDS: ACETAMINOPHEN 500 MG TAB PO SCH ×3 (05:49→23:13)
[2018-03-24 07:53] LABS: Basophils # (auto) 0.01 K/uL (0-0.2); Basophils % (auto) 0.1 %; Hematocrit (blood only) 26.5 % (42-52); Hemoglobin 9.5 g/dL (14.0-18.0); Immature Granulocytes # (auto) 0.04 K/uL (0.00-0.02); Immature Granulocytes % (auto) 0.4 %; Lymphocytes # (auto) 1.02 K/uL (1.2-3.4); Lymphocytes % (auto) 9.7 %; Mean Corpuscular Hgb Conc 35.8 g/dL (32-36); Mean Corpuscular Volume 88.3 fL (80-100); Mean Platelet Volume 9.7 fL (7.4-10.4); Monocytes # (auto) 1.19 K/uL (0.11-0.59); Monocytes % (auto) 11.3 %; Neutrophils # (auto) 8.29 K/uL (1.4-6.5); Neutrophils % (auto) 78.5 %; Platelet Count 138 K/uL (130-400); RDW Coefficient of Variation 13.3 % (11.5-14.5); RDW Standard Deviation 42.8 fL (36.4-46.3); White Blood Count 10.55 K/uL (4.8-10.8)
--- NOTE | 2018-03-24 08:08 | Orthopedic Progress Note ---
Date of Service March 24, 2018 Assessment & Plan (1) S/p reverse total shoulder arthroplasty: POD#1 right reverse TSA -Pain management -DVT prophylaxis-SCD's, Plavix -PT/OT -Continue sling, NWB right upper extremity -D/C planning-home with home health likely tomorrow -AM labs-hemoglobin 9.5, chemistry pending Subjective Patient resting comfortably in bed right now. Starting to get some pain, is controlled at this time. No complaints at this time, deneis chest pain, sob, dizziness. Physical Exam 2 Vital Signs (Past 24 Hours): Last Vital Signs Temp 37.1 C 03/24/18 07:58 Pulse 78 03/24/18 07:58 Resp 18 03/24/18 07:58 BP 122/66 03/24/18 07:58 Pulse Ox 94 03/24/18 07:58 Physical Exam: Dressing c/d/i, hemovac in place. 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 Mild swelling into fingers. N/V status and sensation intact.
[2018-03-24 08:34] LABS: BUN Creatinine Ratio 18.1 (10-20); Calcium 8.1 mg/dl (8.5-10.1); Creatinine Clr Calc Pharmacy 39.8 ml/min; Est GFR (African American) 42.3; Est GFR (Non-African American) 36.5; Potassium 4.2 mmol/L (3.5-5.1)
[2018-03-24] MEDS ORDERED: NON-FORMULARY MEDICATION (Metoprolol Succinate 1 TAB) PO SCH (09:00)
[2018-03-24] MEDS ORDERED: LISINOPRIL 10 MG TAB PO SCH (09:00)
[2018-03-24] MEDS: METOPROLOL SUCC 25MG EXT REL TAB PO SCH (09:06)
[2018-03-24] MEDS: MAGNESIUM OXIDE 400 MG TAB PO SCH (09:07)
[2018-03-24] MEDS: MULTIVITAMIN TAB PO SCH (09:07)
[2018-03-24] MEDS: DOCUSATE SODIUM 100 MG CAP PO SCH ×2 (09:07→20:37)
[2018-03-24] MEDS: OXYBUTYNIN CHLORIDE 5 MG TAB PO SCH ×2 (09:07→20:37)
[2018-03-24] MEDS: PANTOprazole 40 MG TAB PO SCH (09:07)
[2018-03-24] MEDS: INSULIN ASPART 100 UNITS/ML 3 ML PEN SC SCH ×4 (09:14→20:42)
[2018-03-24] MEDS ORDERED: INSULIN GLARGINE SOLOSTAR 100 UNITS/ML 3 ML PEN SC ONE ×2 (09:30→21:00)
--- NOTE | 2018-03-24 11:51 | Pharmacy Report ---
Pharmacy Glycemic Short Note 2 - Date of Service March 24, 2018 - Glycemic Short BSG Results (Last 24 hours): 03/23/18 03/23/18 03/24/18 17:05 20:37 02:02 Glucose POC Glucose 152 H 154 H 126 H 03/24/18 03/24/18 07:17 08:58 Glucose 147 H POC Glucose 173 H OUTPATIENT ANTIDIABETIC REGIMEN: * Glipizide ER 5 mg qAM * Metformin ER 750 mg BID * A1c = 5.8 % 03/02/18 ASSESSMENT: 03/24/18 * Mr. Mcgovern is now POD 1 s/p shoulder arthroplasty. * He received 48 units of insulin yesterday * BSGs came down nicely after initiation of Lantus and Novolog. Will hold off on resuming orals today since SCr elevated. * I'm anticipating basal needs to be anywhere between 25-30 units today. Will provide higher dose this AM since steroids would still be on board. * Postprandial BSGs remain a little high so will continue with tightened Novolog parameters through today 03/23/18 * Mr. Mcgovern is a 77 y/o male admitted s/p shoulder surgery. He has type 2 diabetes well controlled on oral agents. In the immediate postop period, will plan to utilize insulin based on insulin calculator estimates using patient's weight and stress level between 2 and 3. Being more aggressive due to periop steroid dosing. PLAN FOR INPATIENT GLYCEMIC CONTROL: * Continue to hold outpatient oral diabetes medications - consider resuming tomorrow as long as criteria met * Basal insulin - based on a scale * Lantus 20 units this AM * Lantus tonight based on the following scale: * 5 units for BSG 150 or less * 10 units for BSG > 150 * Bolus insulin - continue same for today, loosen tomorrow AM to: * NovoLog per scale ACHS or Q6hrs while NPO * Goal Range: Low 110 mg/dL - High 140 mg/dL * Correction Factor: 25 mg/dL/unit * Nutritional / Prandial insulin per carb ratio of 1 unit per 8 grams CHO consumed PLAN FOR DISCHARGE: * see 03/23 note
[2018-03-24] MEDS ORDERED: TRAMADOL HCL 50 MG TABLET PO PRN (12:08)
--- NOTE | 2018-03-24 12:50 | Anesthesiology Progress Note ---
Date of Service March 24, 2018 Anesthesia Post Procedure Vital Signs Vital Signs: Temp Pulse Pulse Resp BP Pulse Ox 03/24/18 11:47 36.9 C 81 17 112/60 93 03/24/18 07:58 37.1 C 78 18 122/66 94 03/24/18 03:44 36.6 C 89 20 158/70 H 95 03/23/18 22:47 36.8 C 85 20 147/76 H 93 03/23/18 19:42 36.3 C L 92 H 16 115/70 91 03/23/18 16:50 77 132/72 93 03/23/18 14:55 36.7 C 79 16 142/69 H 91 03/23/18 13:13 36.8 C 80 17 138/78 96 Pain Intensity Right Shoulder: Pain Intensity: 8 Notes Mental Status: alert / awake / arousable and participated in evaluation Patient Amnestic to Procedure: Yes Nausea / Vomiting: adequately controlled Pain: adequately controlled Airway Patency, RR, SpO2: stable & adequate BP & HR: stable & adequate Hydration State: stable & adequate Anesthetic Complications: no major complications apparent and Pt Satisfied with anesthetic care
--- NOTE | 2018-03-24 13:19 | Hospitalist Progress Note ---
Date of Service March 24, 2018 Assessment & Plan (1) Primary osteoarthritis, right shoulder: - S/p right reverse total shoulder arthroplasty on 03/23 - Pain control & DVT ppx per primary team. - PT/OT ordered. - Bowel regimen. stop IV fluids acute blood loss anemia due to surgery, Hb down slightly at 9.5 will repeat tomorrow (2) CAD (coronary artery disease): no chest pain or pressure - S/p stent placement x 5 (2012, 2013 and 2015) - Follows with Dr. Castle from cardiology. - Continue Lipitor 20 mg qhs, Plavix 75 mg daily, Aspirin 81 mg daily and Metoprolol succinate 12.5 mg daily as prescribed. - Most recent TTE April 2017 showed EF 55%; stress test in April 2017 was also negative. (3) Ascending aorta dilation: - Echo April 2017 showed dilation of ascending aorta, 4.2 cm. - Will need to monitor in future. (4) CKD (chronic kidney disease), stage III: - Follows with nephrology. - Renally dose all meds. Cr up slightly to 1.7, eating and drinking well, can stop IV fluids after this bag (5) Diabetes mellitus type II, controlled: - Most recent A1C was 5.8 on 03/02/18. - Hold home meds; start SSI coverage and consult pharmacy for glycemic management. (6) GERD (gastroesophageal reflux disease): - Protonix 40 mg PO daily. (7) HLD (hyperlipidemia): - Continue statin as prescribed. (8) Hypertension: - Continue Metoprolol 12.5 mg daily as prescribed. - Hold ACEI pending evaluation of renal function in AM. (9) BPH (benign prostatic hyperplasia): - Continue Proscar and Flomax as prescribed. (10) DVT prophylaxis: - Per ortho. Dispo: Will continue to follow, call with any questions. Subjective doing well, some increased right shoulder pain today eating well, no chest pain, no dyspnea reviewed labs, Hb down to 9.5, Cr up very slightly to 1.7 Review of Systems All systems reviewed & are unremarkable except as noted in HPI & below Musculoskeletal: + joint pain (right shoulder) Physical Exam 2 Vital Signs (Past 24 Hours): Last Vital Signs Temp 36.9 C 03/24/18 11:47 Pulse 81 03/24/18 11:47 Resp 17 03/24/18 11:47 BP 112/60 01/26/19 11:47 Pulse Ox 93 03/24/18 11:47 Constitutional: WD/WN, vitals as above Eyes: PERRL, conjunctivae normal, anicteric sclerae ENMT: external ear and nose normal, oropharynx normal Neck: trachea midline, no thyromegaly Respiratory: normal respiratory effort, lungs clear to auscultation Cardiovascular: RRR, no murmur, no edema Gastrointestinal (Abdomen): normal bowel sounds, soft, nontender, no hepatosplenomegaly Musculoskeletal: Extremities: + limited ROM of extremities (Right arm in sling , swollen, tender) Skin: no rashes, warm and dry Neurologic: patellar DTR's 2+ bilat, sensation intact and PERRL, EOMI, accommodation nl, no face palsy, no dysarthria Psychiatric: A+Ox3, euthymic affect Lymphatic: no cervical or axillary lymphadenopathy Results & Data Laboratory Results Laboratory Results - last 24 hr 03/23/18 03/23/18 03/24/18 17:05 20:37 02:02 WBC RBC Hgb Hct MCV MCH MCHC RDW Std Deviation RDW Coeff of Raymond Plt Count MPV Immature Gran % (Auto) Neut % (Auto) Lymph % (Auto) [place] % (Auto) Eos % (Auto) Baso % (Auto) Immature Gran # (Auto) Neut # (Auto) Lymph # (Auto) [place] # (Auto) Eos # (Auto) Baso # (Auto) Sodium Potassium Chloride Carbon Dioxide Anion Gap BUN Creatinine Est Cr Clr Drug Dosing Est GFR ( Amer) Est GFR (Non-Af Amer) BUN/Creatinine Ratio Glucose POC Glucose 152 H 154 H 126 H Calcium 03/24/18 03/24/18 03/24/18 07:17 07:17 08:58 WBC 10.55 RBC 3.00 L Hgb 9.5 L Hct 26.5 L MCV 88.3 MCH 31.7 MCHC 35.8 RDW Std Deviation 42.8 RDW Coeff of Raymond 13.3 Plt Count 138 MPV 9.7 Immature Gran % (Auto) 0.4 Neut % (Auto) 78.5 Lymph % (Auto) 9.7 [place] % (Auto) 11.3 Eos % (Auto) 0.0 Baso % (Auto) 0.1 Immature Gran # (Auto) 0.04 H Neut # (Auto) 8.29 H Lymph # (Auto) 1.02 L [place] # (Auto) 1.19 H Eos # (Auto) 0.00 Baso # (Auto) 0.01 Sodium 135 L Potassium 4.2 Chloride 105 Carbon Dioxide 20 L Anion Gap 10.0 BUN 32 H Creatinine 1.76 H Est Cr Clr Drug Dosing 39.8 Est GFR ( Amer) 42.3 Est GFR (Non-Af Amer) 36.5 BUN/Creatinine Ratio 18.1 Glucose 147 H POC Glucose 173 H Calcium 8.1 L 03/24/18 12:00 WBC RBC Hgb Hct MCV MCH MCHC RDW Std Deviation RDW Coeff of Raymond Plt Count MPV Immature Gran % (Auto) Neut % (Auto) Lymph % (Auto) [place] % (Auto) Eos % (Auto) Baso % (Auto) Immature Gran # (Auto) Neut # (Auto) Lymph # (Auto) [place] # (Auto) Eos # (Auto) Baso # (Auto) Sodium Potassium Chloride Carbon Dioxide Anion Gap BUN Creatinine Est Cr Clr Drug Dosing Est GFR ( Amer) Est GFR (Non-Af Amer) BUN/Creatinine Ratio Glucose POC Glucose 184 H Calcium Medications Administered Current Inpatient Medications Acetaminophen (Tylenol) 1,000 mg PO Q8 [facility] Stop: 04/22/18 13:59 Last Admin: 03/24/18 05:49 Dose: 1,000 mg Aspirin (Ecotrin Ectab) 81 mg PO HS [place] Stop: 04/22/18 20:59 Last Admin: 03/23/18 20:49 Dose: 81 mg Atorvastatin Calcium (Lipitor) 20 mg PO HS [place] Stop: 04/22/18 20:59 Last Admin: 03/23/18 20:49 Dose: 20 mg Bisacodyl (Dulcolax) 10 mg UT Q6H PRN PRN Reason: Constipation Stop: 04/22/18 09:15 Clopidogrel Bisulfate (Plavix) 75 mg PO QPM [place] Stop: 04/22/18 20:59 Last Admin: 03/23/18 20:49 Dose: 75 mg Dextrose (Dextrose 50%) 25 - 50 ml IV UD PRN; Protocol PRN Reason: Hypoglycemia Protocol Stop: 04/22/18 10:38 Docusate Sodium (Colace) 100 mg PO BID [place] Stop: 04/22/18 20:59 Last Admin: 03/24/18 09:07 Dose: Not Given Finasteride (Proscar) 5 mg PO QPM [facility] Stop: 04/22/18 20:59 Last Admin: 03/23/18 20:49 Dose: 5 mg Glucagon (Glucagen) 1 mg SQ UD PRN; Protocol PRN Reason: Hypoglycemia Protocol Stop: 04/22/18 10:38 Glucose (Glucose 40%) 15 - 30 gm PO UD PRN; Protocol PRN Reason: Hypoglycemia Protocol Stop: 04/22/18 10:38 Glucose (Dex4 Glucose) 4 - 8 tabs PO UD PRN; Protocol PRN Reason: Hypoglycemia Protocol Stop: 04/22/18 10:38 Insulin Aspart (Novolog Flexpen) 0 units SC [facility]; Protocol Stop: 04/22/18 11:29 Last Admin: 03/24/18 13:01 Dose: 15 units Insulin Glargine (Lantus Solostar Pen) 0 units SC ONE; Protocol Stop: 03/24/18 21:01 Lisinopril (Zestril) 10 mg PO [facility] Stop: 04/23/18 08:59 Magnesium Hydroxide (Milk Of Magnesia) 30 ml PO Q6H PRN PRN Reason: Constipation Stop: 04/22/18 09:15 Magnesium Oxide (Mag-Ox) 400 mg PO [facility] Stop: 04/23/18 08:59 Last Admin: 03/24/18 09:07 Dose: 400 mg Menthol (Nice) 1 fara [place] PRN PRN PRN Reason: Cough Stop: 04/22/18 13:56 Last Admin: 03/23/18 14:22 Dose: 1 fara Metoclopramide HCl (Reglan) 10 mg IV Q6H PRN PRN Reason: Nausea And Vomiting Stop: 04/22/18 09:15 Metoprolol Succinate (Toprol Xl) 12.5 mg PO [facility] Stop: 04/22/18 13:44 Last Admin: 03/24/18 09:06 Dose: 12.5 mg Miscellaneous (Order Awaiting Action) 1 ea N/A QS [facility] Stop: 04/22/18 15:59 Last Admin: 03/24/18 08:49 Dose: Not Given Miscellaneous (Carbohydrates For Hypoglycemia) 15 - 30 gm PO UD PRN PRN Reason: Hypoglycemia Treatment Stop: 04/22/18 10:38 Miscellaneous Information (Consult Glycemic Management Pharmacy) 1 ea N/A UD PRN PRN Reason: Consult Stop: 04/22/18 09:40 Morphine Sulfate (Morphine Sulfate) 2 mg IV Q4H PRN PRN Reason: Pain Stop: 04/06/18 09:20 Multivitamins (Multivitamin Tab) 1 tab PO QAM [place] Stop: 04/23/18 08:59 Last Admin: 03/24/18 09:07 Dose: 1 tab Naloxone HCl (Narcan) 0.1 mg IV Q5M PRN PRN Reason: Oversedation/Resp Depression Stop: 04/22/18 09:15 Nitroglycerin (Nitrostat) 0.4 mg SL UD PRN PRN Reason: Pain Stop: 04/22/18 09:13 Ondansetron HCl (Zofran) 4 mg IV Q6H PRN PRN Reason: Nausea And Vomiting Stop: 04/22/18 09:15 Oxybutynin Chloride (Ditropan) 5 mg PO BID [place] Stop: 04/22/18 20:59 Last Admin: 03/24/18 09:07 Dose: 5 mg Pantoprazole Sodium (Protonix) 40 mg PO QAM [place] Stop: 04/23/18 08:59 Last Admin: 03/24/18 09:07 Dose: 40 mg Sennosides (Senokot) 17.2 mg PO HS [place] Stop: 04/22/18 20:59 Last Admin: 03/23/18 20:50 Dose: Not Given Tamsulosin HCl (Flomax) 0.4 mg PO QAM PRN PRN Reason: unable to void Stop: 04/22/18 09:15 Tramadol HCl (Ultram) 50 mg PO Q4H PRN PRN Reason: Pain Stop: 04/23/18 12:07 Last Admin: 03/24/18 12:31 Dose: 50 mg
[2018-03-24] MEDS: ATORVASTATIN 20 MG TAB PO SCH (20:37)
[2018-03-24] MEDS: ASPIRIN 81 MG ECTAB PO SCH (20:37)
[2018-03-24] MEDS: SENNA 8.6 MG TAB PO SCH (20:38)
[2018-03-24] MEDS: FINASTERIDE 5 MG TAB PO SCH (20:38)
[2018-03-24] MEDS: CLOPIDOGREL BISULFATE 75 MG TAB PO SCH (20:38)
[2018-03-25 05:17] LABS: Basophils # (auto) 0.02 K/uL (0-0.2); Basophils % (auto) 0.3 %; Eosinophils # (auto) 0.13 K/uL (0-0.5); Eosinophils % (auto) 1.9 %; Hematocrit (blood only) 26.8 % (42-52); Hemoglobin 9.4 g/dL (14.0-18.0); Immature Granulocytes # (auto) 0.02 K/uL (0.00-0.02); Immature Granulocytes % (auto) 0.3 %; Lymphocytes # (auto) 1.71 K/uL (1.2-3.4); Lymphocytes % (auto) 25.6 %; Mean Corpuscular Hgb Conc 35.1 g/dL (32-36); Mean Corpuscular Volume 89.9 fL (80-100); Mean Platelet Volume 8.8 fL (7.4-10.4); Monocytes # (auto) 0.86 K/uL (0.11-0.59); Monocytes % (auto) 12.9 %; Neutrophils # (auto) 3.94 K/uL (1.4-6.5); Platelet Count 116 K/uL (130-400); RDW Coefficient of Variation 13.6 % (11.5-14.5); RDW Standard Deviation 44.2 fL (36.4-46.3); Red Blood Count 2.98 M/uL (4.7-6.1); White Blood Count 6.68 K/uL (4.8-10.8)
[2018-03-25] MEDS: ACETAMINOPHEN 500 MG TAB PO SCH (05:35)
[2018-03-25 05:51] LABS: BUN Creatinine Ratio 15.2 (10-20); Calcium 8.2 mg/dl (8.5-10.1); Creatinine Clr Calc Pharmacy 45.2 ml/min; Est GFR (African American) 49.3; Est GFR (Non-African American) 42.5; Potassium 4.4 mmol/L (3.5-5.1)
[2018-03-25] MEDS ORDERED: INSULIN ASPART 100 UNITS/ML 3 ML PEN SC SCH (07:30)
--- NOTE | 2018-03-25 07:58 | Orthopedic Progress Note ---
Date of Service March 25, 2018 Assessment & Plan (1) S/p reverse total shoulder arthroplasty: POD#2 right reverse TSA -Pain management -DVT prophylaxis-SCD's, Plavix -PT/OT -Continue sling, NWB right upper extremity -D/C planning-home with home health likely today depending on how PT goes -AM labs-hemoglobin 9.4, chemistry-creatinine at baseline Subjective Patient resting comfortably in bed right now. Pain improved from yesterday, is controlled at this time. Has only been taking PO tylenol. Did have some odd behavior per nursing staff after taking the oxycodone yesterday morning, switched to tramadol. Patient stated after taking tramadol he fell asleep and then was very confused and disoriented when he woke, did not like the tramadol effects on him. No complaints at this time, denies chest pain, sob, dizziness. Physical Exam 2 Vital Signs (Past 24 Hours): Last Vital Signs Temp 36.9 C 03/25/18 07:01 Pulse 62 03/25/18 07:01 Resp 16 03/25/18 07:01 BP 126/66 03/25/18 07:01 Pulse Ox 97 03/25/18 07:01 Physical Exam: Hemovac d/c, dressing c/d/i. Fingers mobile, sensation and N/V status intact.
[2018-03-25] MEDS: DOCUSATE SODIUM 100 MG CAP PO SCH (08:49)
[2018-03-25] MEDS: MAGNESIUM OXIDE 400 MG TAB PO SCH (08:50)
[2018-03-25] MEDS: METOPROLOL SUCC 25MG EXT REL TAB PO SCH (08:50)
[2018-03-25] MEDS: PANTOprazole 40 MG TAB PO SCH (08:50)
[2018-03-25] MEDS: MULTIVITAMIN TAB PO SCH (08:50)
[2018-03-25] MEDS: OXYBUTYNIN CHLORIDE 5 MG TAB PO SCH (08:50)
[2018-03-25] MEDS ORDERED: glipiZIDE ER 2.5 MG TABCR PO SCH (09:00)
--- NOTE | 2018-03-25 10:51 | Pharmacy Report ---
Pharmacy Glycemic Short Note 2 - Date of Service March 25, 2018 - Glycemic Short BSG Results (Last 24 hours): 03/24/18 03/24/18 03/24/18 12:00 17:04 20:36 Glucose POC Glucose 184 H 99 155 H 03/25/18 03/25/18 05:02 08:04 Glucose 86 POC Glucose 111 H OUTPATIENT ANTIDIABETIC REGIMEN: * Glipizide ER 5 mg qAM * Metformin ER 750 mg BID * A1c = 5.8 % 03/02/18 ASSESSMENT: 03/25/18 * POD 2 s/p shoulder arthroplasty * BSGs have improved and no steroids are on board at this point. SCr improved as well. * Possible d/c home today * Will resume glipizide in preparation for discharge. Novolog parameters have already been loosened. 03/24/18 * Mr. Mcgovern is now POD 1 s/p shoulder arthroplasty. * He received 48 units of insulin yesterday * BSGs came down nicely after initiation of Lantus and Novolog. Will hold off on resuming orals today since SCr elevated. * I'm anticipating basal needs to be anywhere between 25-30 units today. Will provide higher dose this AM since steroids would still be on board. * Postprandial BSGs remain a little high so will continue with tightened Novolog parameters through today 03/23/18 * Mr. Mcgovern is a 77 y/o male admitted s/p shoulder surgery. He has type 2 diabetes well controlled on oral agents. In the immediate postop period, will plan to utilize insulin based on insulin calculator estimates using patient's weight and stress level between 2 and 3. Being more aggressive due to periop steroid dosing. PLAN FOR INPATIENT GLYCEMIC CONTROL: * Hold metformin for now since renal function still improving. Resume glipizide ER 5 mg this AM. * No further basal * Bolus insulin - no change * NovoLog per scale ACHS or Q6hrs while NPO * Goal Range: Low 110 mg/dL - High 140 mg/dL * Correction Factor: 25 mg/dL/unit * Nutritional / Prandial insulin per carb ratio of 1 unit per 8 grams CHO consumed PLAN FOR DISCHARGE: * see 03/23 note. Okay to resume metformin on discharge (SCr pretty much at baseline); however, would recommend close f/u of renal function as an outpatient.
--- NOTE | 2018-03-25 15:25 | Discharge Summary ---
Date of Service March 25, 2018 Admission HPI Per Admitting Provider Patient is a 77 year old male with significant right shoulder pain for the past several years. PMHx significant for SC, HTN, DM2, GERD, CKD, high cholesterol. He has failed conservative measures including cortisone injections and physical therapy. He would like to proceed with right shoulder reverse total shoulder arthroplasty. Patient denies headaches, sweats, fevers, chills, double vision, blurred vision, cough, sore throat, dysphagia, chest pain, sob, wheezing, n/v/d/ c, numbness, tingling, fatigue, urinary symptoms, mood disorders. ROS positive for right shoulder pain and stiffness. Admission Exam Per Admitting Provider Physical Exam Constitutional: well developed and well nourished; no acute distress Eyes: PERRL, conjunctivae normal, anicteric sclerae ENMT: external ear and nose normal, oropharynx normal Neck: trachea midline, no thyromegaly Respiratory: normal respiratory effort, lungs clear to auscultation Cardiovascular: RRR, no murmur, no edema Musculoskeletal: Right Shoulder-Pain ROM. Crepitus noted with passive motion. ER neutral, abduction to 80 degrees, FF to 100. Positive impingement signs. Skin: no rashes, warm and dry Neurologic: patellar DTR's 2+ bilat, sensation intact Psychiatric: A+Ox3, euthymic affect Principal Diagnosis Right shoulder osteoarthritis -DM2, HTN, GERD, CAD Discharge Exam Constitutional well developed and well nourished; no acute distress Eyes PERRL, conjunctivae normal, anicteric sclerae ENMT external ear and nose normal, oropharynx normal Neck trachea midline, no thyromegaly Respiratory normal respiratory effort, lungs clear to auscultation Cardiovascular RRR, no murmur, no edema Skin no rashes, warm and dry Neurologic patellar DTR's 2+ bilat, sensation intact Psychiatric A+Ox3, euthymic affect Discharge Data Allergies Allergy/AdvReac Type Severity Reaction Status Date / Time No Known Allergies Allergy Mild Verified 03/23/18 05:57 Consultations 03/23/18 09:16 Consult Hospitalist Routine 03/23/18 09:19 Consult Case Management - Discharge Planning Routine Procedures Performed Operation Date: 03/23/18 07:00 Actual Procedures p Right Reverse Total Shoulder Arthroplasty(Right) - Israel Patrick MD Ordered Studies 03/23/18 05:00 US - OR guided needle placemen Routine Hospital Course (1) S/p reverse total shoulder arthroplasty: Patient presented for same day admission following right reverse total shoulder arthroplasty on 03/23/18. He tolerated procedure well. Post-operatively , his activity was progressed and well tolerated. Dr. Amparo Mazariegos of medical service was consulted for medical management during admission. On POD#1, patient 's hemoglobin was down mildly to 9.5, stable on POD#2 at 9.4. Kidney function was at baseline, with a mild increase on POD#1. On POD#1 nursing staff reported that patient was having odd behavior and hallucinations after taking the oxycodone. He was switched to tramadol, which he also had significant mental status change on. His pain was controlled with PO Tylenol. Please refer to daily progress notes and PT notes for complete details. After exam on 03/23/18, patient was felt to be stable for discharge home with home health PT. Patient will f/u in the office in about 2 weeks for further evaluation including x-rays and incision check, sooner if having any issues or concerns. He was discharged with only tylenol given the adverse reactions he had to the oxycodone and tramadol. Lab Results 03/02/18 03/02/18 03/02/18 Range/Units 10:58 10:58 10:58 WBC 6.72 (4.8-10.8) K/uL RBC 3.85 L (4.7-6.1) M/uL Hgb 12.2 L (14.0-18.0) g/dL Hct 35.0 L (42-52) % MCV 90.9 (80-100) fL MCH 31.7 (25-34) pg MCHC 34.9 (32-36) g/dL RDW Std Deviation 44.3 (36.4-46.3) fL RDW Coeff of Raymond 13.4 (11.5-14.5) % Plt Count 156 (130-400) K/uL MPV 9.8 (7.4-10.4) fL Immature Gran % (Auto) 0.3 % Neut % (Auto) 63.9 % Lymph % (Auto) 24.0 % [place] % (Auto) 8.8 % Eos % (Auto) 2.7 % Baso % (Auto) 0.3 % Immature Gran # (Auto) 0.02 (0.00-0.02) K/uL Neut # (Auto) 4.30 (1.4-6.5) K/uL Lymph # (Auto) 1.61 (1.2-3.4) K/uL [place] # (Auto) 0.59 (0.11-0.59) K/uL Eos # (Auto) 0.18 (0-0.5) K/uL Baso # (Auto) 0.02 (0-0.2) K/uL PT 10.6 (9.0-12.0) Seconds INR 1.1 (0.9-1.1) APTT 25.4 (21.0-31.0) Seconds PTT Ratio 1.0 Sodium (136-145) mmol/L Potassium (3.5-5.1) mmol/L Chloride (98-107) mmol/L Carbon Dioxide (21-32) mmol/L Anion Gap (3-11) BUN (7-18) mg/dl Creatinine (0.6-1.4) mg/dl Est Cr Clr Drug Dosing ml/min Est GFR ( Amer) Est GFR (Non-Af Amer) BUN/Creatinine Ratio (10-20) Glucose (70-99) mg/dl POC Glucose (70-99) Estimat Average Glucose mg/dl Hemoglobin A1c (4.5-5.6) % Calcium (8.5-10.1) mg/dl Albumin 3.8 (3.4-5.0) gm/dl Urine Color Urine Appearance (Clear) Urine pH (4.5-7.5) Ur Specific Tiro (1.000-1.030) Urine Protein (Negative) Urine Glucose (UA) (Negative) Urine Ketones (Negative) Urine Blood (Negative) Urine Nitrite (Negative) Urine Bilirubin (Negative) Urine Urobilinogen (Negative) Ur Leukocyte Esterase (Negative) Blood Type Antibody Screen 03/02/18 03/02/18 03/02/18 Range/Units 10:58 10:58 10:58 WBC (4.8-10.8) K/uL RBC (4.7-6.1) M/uL Hgb (14.0-18.0) g/dL Hct (42-52) % MCV (80-100) fL MCH (25-34) pg MCHC (32-36) g/dL RDW Std Deviation (36.4-46.3) fL RDW Coeff of Raymond (11.5-14.5) % Plt Count (130-400) K/uL MPV (7.4-10.4) fL Immature Gran % (Auto) % Neut % (Auto) % Lymph % (Auto) % [place] % (Auto) % Eos % (Auto) % Baso % (Auto) % Immature Gran # (Auto) (0.00-0.02) K/uL Neut # (Auto) (1.4-6.5) K/uL Lymph # (Auto) (1.2-3.4) K/uL [place] # (Auto) (0.11-0.59) K/uL Eos # (Auto) (0-0.5) K/uL Baso # (Auto) (0-0.2) K/uL PT (9.0-12.0) Seconds INR (0.9-1.1) APTT (21.0-31.0) Seconds PTT Ratio Sodium (136-145) mmol/L Potassium (3.5-5.1) mmol/L Chloride (98-107) mmol/L Carbon Dioxide (21-32) mmol/L Anion Gap (3-11) BUN (7-18) mg/dl Creatinine (0.6-1.4) mg/dl Est Cr Clr Drug Dosing ml/min Est GFR ( Amer) Est GFR (Non-Af Amer) BUN/Creatinine Ratio (10-20) Glucose (70-99) mg/dl POC Glucose (70-99) Estimat Average Glucose 120 mg/dl Hemoglobin A1c 5.8 H (4.5-5.6) % Calcium (8.5-10.1) mg/dl Albumin (3.4-5.0) gm/dl Urine Color Yellow Urine Appearance Clear (Clear) Urine pH 5.0 (4.5-7.5) Ur Specific Tiro 1.013 (1.000-1.030) Urine Protein Negative (Negative) Urine Glucose (UA) Negative (Negative) Urine Ketones Negative (Negative) Urine Blood Negative (Negative) Urine Nitrite Negative (Negative) Urine Bilirubin Negative (Negative) Urine Urobilinogen Negative (Negative) Ur Leukocyte Esterase Negative (Negative) Blood Type A Negative Antibody Screen NEGATIVE 03/23/18 03/23/18 03/23/18 Range/Units 05:31 09:19 11:04 WBC (4.8-10.8) K/uL RBC (4.7-6.1) M/uL Hgb (14.0-18.0) g/dL Hct (42-52) % MCV (80-100) fL MCH (25-34) pg MCHC (32-36) g/dL RDW Std Deviation (36.4-46.3) fL RDW Coeff of Raymond (11.5-14.5) % Plt Count (130-400) K/uL MPV (7.4-10.4) fL Immature Gran % (Auto) % Neut % (Auto) % Lymph % (Auto) % [place] % (Auto) % Eos % (Auto) % Baso % (Auto) % Immature Gran # (Auto) (0.00-0.02) K/uL Neut # (Auto) (1.4-6.5) K/uL Lymph # (Auto) (1.2-3.4) K/uL [place] # (Auto) (0.11-0.59) K/uL Eos # (Auto) (0-0.5) K/uL Baso # (Auto) (0-0.2) K/uL PT (9.0-12.0) Seconds INR (0.9-1.1) APTT (21.0-31.0) Seconds PTT Ratio Sodium (136-145) mmol/L Potassium (3.5-5.1) mmol/L Chloride (98-107) mmol/L Carbon Dioxide (21-32) mmol/L Anion Gap (3-11) BUN (7-18) mg/dl Creatinine (0.6-1.4) mg/dl Est Cr Clr Drug Dosing ml/min Est GFR ( Amer) Est GFR (Non-Af Amer) BUN/Creatinine Ratio (10-20) Glucose (70-99) mg/dl POC Glucose 159 H 172 H 215 H (70-99) Estimat Average Glucose mg/dl Hemoglobin A1c (4.5-5.6) % Calcium (8.5-10.1) mg/dl Albumin (3.4-5.0) gm/dl Urine Color Urine Appearance (Clear) Urine pH (4.5-7.5) Ur Specific Tiro (1.000-1.030) Urine Protein (Negative) Urine Glucose (UA) (Negative) Urine Ketones (Negative) Urine Blood (Negative) Urine Nitrite (Negative) Urine Bilirubin (Negative) Urine Urobilinogen (Negative) Ur Leukocyte Esterase (Negative) Blood Type Antibody Screen 03/23/18 03/23/18 03/24/18 Range/Units 17:05 20:37 02:02 WBC (4.8-10.8) K/uL RBC (4.7-6.1) M/uL Hgb (14.0-18.0) g/dL Hct (42-52) % MCV (80-100) fL MCH (25-34) pg MCHC (32-36) g/dL RDW Std Deviation (36.4-46.3) fL RDW Coeff of Raymond (11.5-14.5) % Plt Count (130-400) K/uL MPV (7.4-10.4) fL Immature Gran % (Auto) % Neut % (Auto) % Lymph % (Auto) % [place] % (Auto) % Eos % (Auto) % Baso % (Auto) % Immature Gran # (Auto) (0.00-0.02) K/uL Neut # (Auto) (1.4-6.5) K/uL Lymph # (Auto) (1.2-3.4) K/uL [place] # (Auto) (0.11-0.59) K/uL Eos # (Auto) (0-0.5) K/uL Baso # (Auto) (0-0.2) K/uL PT (9.0-12.0) Seconds INR (0.9-1.1) APTT (21.0-31.0) Seconds PTT Ratio Sodium (136-145) mmol/L Potassium (3.5-5.1) mmol/L Chloride (98-107) mmol/L Carbon Dioxide (21-32) mmol/L Anion Gap (3-11) BUN (7-18) mg/dl Creatinine (0.6-1.4) mg/dl Est Cr Clr Drug Dosing ml/min Est GFR ( Amer) Est GFR (Non-Af Amer) BUN/Creatinine Ratio (10-20) Glucose (70-99) mg/dl POC Glucose 152 H 154 H 126 H (70-99) Estimat Average Glucose mg/dl Hemoglobin A1c (4.5-5.6) % Calcium (8.5-10.1) mg/dl Albumin (3.4-5.0) gm/dl Urine Color Urine Appearance (Clear) Urine pH (4.5-7.5) Ur Specific Tiro (1.000-1.030) Urine Protein (Negative) Urine Glucose (UA) (Negative) Urine Ketones (Negative) Urine Blood (Negative) Urine Nitrite (Negative) Urine Bilirubin (Negative) Urine Urobilinogen (Negative) Ur Leukocyte Esterase (Negative) Blood Type Antibody Screen 03/24/18 03/24/18 03/24/18 Range/Units 07:17 07:17 08:58 WBC 10.55 (4.8-10.8) K/uL RBC 3.00 L (4.7-6.1) M/uL Hgb 9.5 L (14.0-18.0) g/dL Hct 26.5 L (42-52) % MCV 88.3 (80-100) fL MCH 31.7 (25-34) pg MCHC 35.8 (32-36) g/dL RDW Std Deviation 42.8 (36.4-46.3) fL RDW Coeff of Raymond 13.3 (11.5-14.5) % Plt Count 138 (130-400) K/uL MPV 9.7 (7.4-10.4) fL Immature Gran % (Auto) 0.4 % Neut % (Auto) 78.5 % Lymph % (Auto) 9.7 % [place] % (Auto) 11.3 % Eos % (Auto) 0.0 % Baso % (Auto) 0.1 % Immature Gran # (Auto) 0.04 H (0.00-0.02) K/uL Neut # (Auto) 8.29 H (1.4-6.5) K/uL Lymph # (Auto) 1.02 L (1.2-3.4) K/uL [place] # (Auto) 1.19 H (0.11-0.59) K/uL Eos # (Auto) 0.00 (0-0.5) K/uL Baso # (Auto) 0.01 (0-0.2) K/uL PT (9.0-12.0) Seconds INR (0.9-1.1) APTT (21.0-31.0) Seconds PTT Ratio Sodium 135 L (136-145) mmol/L Potassium 4.2 (3.5-5.1) mmol/L Chloride 105 (98-107) mmol/L Carbon Dioxide 20 L (21-32) mmol/L Anion Gap 10.0 (3-11) BUN 32 H (7-18) mg/dl Creatinine 1.76 H (0.6-1.4) mg/dl Est Cr Clr Drug Dosing 39.8 ml/min Est GFR ( Amer) 42.3 Est GFR (Non-Af Amer) 36.5 BUN/Creatinine Ratio 18.1 (10-20) Glucose 147 H (70-99) mg/dl POC Glucose 173 H (70-99) Estimat Average Glucose mg/dl Hemoglobin A1c (4.5-5.6) % Calcium 8.1 L (8.5-10.1) mg/dl Albumin (3.4-5.0) gm/dl Urine Color Urine Appearance (Clear) Urine pH (4.5-7.5) Ur Specific Tiro (1.000-1.030) Urine Protein (Negative) Urine Glucose (UA) (Negative) Urine Ketones (Negative) Urine Blood (Negative) Urine Nitrite (Negative) Urine Bilirubin (Negative) Urine Urobilinogen (Negative) Ur Leukocyte Esterase (Negative) Blood Type Antibody Screen 03/24/18 03/24/18 03/24/18 Range/Units 12:00 17:04 20:36 WBC (4.8-10.8) K/uL RBC (4.7-6.1) M/uL Hgb (14.0-18.0) g/dL Hct (42-52) % MCV (80-100) fL MCH (25-34) pg MCHC (32-36) g/dL RDW Std Deviation (36.4-46.3) fL RDW Coeff of Raymond (11.5-14.5) % Plt Count (130-400) K/uL MPV (7.4-10.4) fL Immature Gran % (Auto) % Neut % (Auto) % Lymph % (Auto) % [place] % (Auto) % Eos % (Auto) % Baso % (Auto) % Immature Gran # (Auto) (0.00-0.02) K/uL Neut # (Auto) (1.4-6.5) K/uL Lymph # (Auto) (1.2-3.4) K/uL [place] # (Auto) (0.11-0.59) K/uL Eos # (Auto) (0-0.5) K/uL Baso # (Auto) (0-0.2) K/uL PT (9.0-12.0) Seconds INR (0.9-1.1) APTT (21.0-31.0) Seconds PTT Ratio Sodium (136-145) mmol/L Potassium (3.5-5.1) mmol/L Chloride (98-107) mmol/L Carbon Dioxide (21-32) mmol/L Anion Gap (3-11) BUN (7-18) mg/dl Creatinine (0.6-1.4) mg/dl Est Cr Clr Drug Dosing ml/min Est GFR ( Amer) Est GFR (Non-Af Amer) BUN/Creatinine Ratio (10-20) Glucose (70-99) mg/dl POC Glucose 184 H 99 155 H (70-99) Estimat Average Glucose mg/dl Hemoglobin A1c (4.5-5.6) % Calcium (8.5-10.1) mg/dl Albumin (3.4-5.0) gm/dl Urine Color Urine Appearance (Clear) Urine pH (4.5-7.5) Ur Specific Tiro (1.000-1.030) Urine Protein (Negative) Urine Glucose (UA) (Negative) Urine Ketones (Negative) Urine Blood (Negative) Urine Nitrite (Negative) Urine Bilirubin (Negative) Urine Urobilinogen (Negative) Ur Leukocyte Esterase (Negative) Blood Type Antibody Screen 03/25/18 03/25/18 03/25/18 Range/Units 05:02 05:02 08:04 WBC 6.68 (4.8-10.8) K/uL RBC 2.98 L (4.7-6.1) M/uL Hgb 9.4 L (14.0-18.0) g/dL Hct 26.8 L (42-52) % MCV 89.9 (80-100) fL MCH 31.5 (25-34) pg MCHC 35.1 (32-36) g/dL RDW Std Deviation 44.2 (36.4-46.3) fL RDW Coeff of Raymond 13.6 (11.5-14.5) % Plt Count 116 L (130-400) K/uL MPV 8.8 (7.4-10.4) fL Immature Gran % (Auto) 0.3 % Neut % (Auto) 59.0 % Lymph % (Auto) 25.6 % [place] % (Auto) 12.9 % Eos % (Auto) 1.9 % Baso % (Auto) 0.3 % Immature Gran # (Auto) 0.02 (0.00-0.02) K/uL Neut # (Auto) 3.94 (1.4-6.5) K/uL Lymph # (Auto) 1.71 (1.2-3.4) K/uL [place] # (Auto) 0.86 H (0.11-0.59) K/uL Eos # (Auto) 0.13 (0-0.5) K/uL Baso # (Auto) 0.02 (0-0.2) K/uL PT (9.0-12.0) Seconds INR (0.9-1.1) APTT (21.0-31.0) Seconds PTT Ratio Sodium 142 D (136-145) mmol/L Potassium 4.4 (3.5-5.1) mmol/L Chloride 113 H (98-107) mmol/L Carbon Dioxide 27 (21-32) mmol/L Anion Gap 2.0 L (3-11) BUN 24 H (7-18) mg/dl Creatinine 1.55 H (0.6-1.4) mg/dl Est Cr Clr Drug Dosing 45.2 ml/min Est GFR ( Amer) 49.3 Est GFR (Non-Af Amer) 42.5 BUN/Creatinine Ratio 15.2 (10-20) Glucose 86 (70-99) mg/dl POC Glucose 111 H (70-99) Estimat Average Glucose mg/dl Hemoglobin A1c (4.5-5.6) % Calcium 8.2 L (8.5-10.1) mg/dl Albumin (3.4-5.0) gm/dl Urine Color Urine Appearance (Clear) Urine pH (4.5-7.5) Ur Specific Tiro (1.000-1.030) Urine Protein (Negative) Urine Glucose (UA) (Negative) Urine Ketones (Negative) Urine Blood (Negative) Urine Nitrite (Negative) Urine Bilirubin (Negative) Urine Urobilinogen (Negative) Ur Leukocyte Esterase (Negative) Blood Type Antibody Screen Total Time Total Time Spent Total Time Spent (In Minutes): 20 Discharge Plan Discharge Items Patient Disposition: Home - Home Health Services Reason For Visit: Right Shoulder Osteoarthritis Discharge Diagnosis: Right shoulder osteoarthritis Discharge Goals: Decrease discomfort Activity: Per 'Additional Instructions' section Non-emergency contact: Surgeon Call non-emergency contact if: you have any medication questions, your pain is not controlled, your pain is concerning for you, you have a fever, your temperature is above 101, your wound has increased redness and your wound pain has increased Follow-up/Referrals: Alfred Corrales [Primary Care Provider] - Diet: Regular Addtl Provider Instructions: ACTIVITY RECOMMENDATIONS: SELF CARE INSTRUCTIONS AFTER TOTAL SHOULDER ARTHROPLASTY REVERSE A. You may do daily exercises as taught in physical therapy while in hospital. No lifting with the operative arm. B. You are to wear your sling/immobilizer at all times EXCEPT when performing your daily exercises and for hygiene purposes. C. You may perform dry, daily dressing changes. Please keep your incision covered. You may shower 48 hours after surgery. Do not apply soap or any ointment/ lotions directly over incision. Do not soak incision in bath tub/swimming pool. D. You may use ice as needed to operative shoulder. You should start physical therapy 2-3 days post operatively SPECIAL CARE INSTRUCTIONS: VERY IMPORTANT TO READ AND REVIEW A. There are a few signs you need to watch for after you are home. Call [facility] at [phone] if you experience any of the followin. Increased severe shoulder pain. Some pain is expected especially when you exercise. 2. Increased swelling in you shoulder or arm; pain or swelling in either upper extremity. 3. Any fluid drainage from the incision. 4. Shortness of breath or chest pain. B. Please call [facility] at [phone] if you have any questions or concerns about your operation or recovery. C. Call your physician if: 1. Temperature is greater than 101 degrees (F). 2. Pain is not relieved by prescribed pain medications. 3. Increase drainage or redness from incision. 4. Unanswered questions or concerns. FOLLOW UP VISIT: Please call [facility] at [phone] to schedule a follow up appointment with Dr. Patrick or his PA in 12-14 days from your surgery date. Prescriptions: New acetaminophen [Pain Reliever] 500 mg Tablet 1,000 mg PO Q8 Qty: 60 RF: 0 Continue oxybutynin chloride 5 mg Tablet 5 mg PO BID RF: 0 lisinopril 10 mg Tablet 10 mg PO QAM RF: 0 metformin 750 mg Tablet Extended Release 24 Hr 750 mg PO BID RF: 0 omeprazole 20 mg Capsule,Delayed Release(Dr/Ec) 20 mg PO QAM RF: 0 glipizide 5 mg Tablet 5 mg PO QAM RF: 0 magnesium oxide 400 mg magnesium Tablet 400 mg PO QAM RF: 0 atorvastatin [Lipitor] 20 mg Tablet 20 mg PO HS RF: 0 clopidogrel [Plavix] 75 mg Tablet 75 mg PO QPM RF: 0 nitroglycerin [Nitrostat] 0.4 mg Tablet, Sublingual 1 tab Sublingual UD PRN (Reason: Pain) RF: 0 finasteride [Proscar] 5 mg Tablet 5 mg PO QPM RF: 0 fenofibrate nanocrystallized [Tricor] 145 mg Tablet 160 mg PO QPM RF: 0 aspirin [Aspirin Low Dose] 81 mg Tablet,Delayed Release (Dr/Ec) 1 tab PO HS RF: 0 metoprolol succinate 1 tab PO DAILY RF: 0 Stand-Alone Forms: [facility] Discharge Orders: Discharge Order (Routine); Ordered 03/25/18 Ordered By: Kd Downs Admission Data Admit Date/Time: 03/23/18 09:16 Attending Provider: Israel Patrick Admit Provider: Israel Patrick Primary Care Provider: Alfred Corrales Other Providers: Adalberto Tai Service: Surgical Services Other Interventions: Discharge Summary Assessment (RN) Last Done: 03/25/18 09:59 Pending Studies at Discharge: No DC Date/Time DO NOT enter until pt leaves facility: 03/25/18 12:32
== END 2018-03-25 12:32 | disposition home health service (06) | DRG 483 ==
LOC: ASU 04:50 → 3W 09:16
DX: X58.XXXA Exposure to other specified factors, initial encounter; E78.5 Hyperlipidemia, unspecified; M75.101 Unspecified rotator cuff tear or rupture of right shoulder, not specified as traumatic; E78.00 Pure hypercholesterolemia, unspecified; S46.101A Unspecified injury of muscle, fascia and tendon of long head of biceps, right arm, initial encounter; Z79.84 Long term (current) use of oral hypoglycemic drugs; I25.10 Atherosclerotic heart disease of native coronary artery without angina pectoris; I10 Essential (primary) hypertension; Z96.643 Presence of artificial hip joint, bilateral; I25.2 Old myocardial infarction; Z90.49 Acquired absence of other specified parts of digestive tract; Z80.0 Family history of malignant neoplasm of digestive organs; M19.011 Primary osteoarthritis, right shoulder; Z87.891 Personal history of nicotine dependence; K21.9 Gastro-esophageal reflux disease without esophagitis; E11.9 Type 2 diabetes mellitus without complications; N40.0 Benign prostatic hyperplasia without lower urinary tract symptoms

== ENCOUNTER 2023-05-03 19:02 | Observation (INO) ==
[2023-05-03] MEDS: OPTIRAY 320 125ml IV ONE (19:06)
[2023-05-03] MEDS: diphenhydrAMINE 50 MG/ML VIAL IV ONE (19:16)
--- NOTE | 2023-05-03 19:28 | CT Scan Report ---
Exam(s): CT HEAD Without Contrast EXAM: CT Head Without Intravenous Contrast CLINICAL HISTORY: Reason for exam: neuro deficit, acute stroke suspected. TECHNIQUE: Axial computed tomography images of the head/brain without intravenous contrast. CTDI is 30.26 mGy and DLP is 448.01 mGy-cm. Automated exposure control was utilized for the study. A dose lowering technique was utilized adhering to the principles of ALARA. COMPARISON: MRI brain on 12/23/2021. CT head on 12/23/2021. FINDINGS: Brain: No acute infarct or hemorrhage identified. No extra-axial fluid collection. No mass effect or midline shift. Scattered areas of hypoattenuation in the supratentorial white matter likely represent chronic small vessel ischemic changes. Ventricles and sulci: Prominence of the ventricles and sulci is likely secondary to cerebral volume loss. Bones: Normal. No bony lesion or acute fracture. Subcutaneous tissues: Normal. Sinuses: Normal. No air-fluid levels or mucosal thickening. Mastoid air cells: Normal. Orbits: Grossly unremarkable. Other: Atherosclerotic calcifications in the intracranial vasculature. IMPRESSION: 1. No acute intracranial abnormality. 2. Mild chronic small vessel ischemic changes and cerebral volume loss. Communications: Call Doctor Stroke Electronically signed by: Gustavo Cuellar M.D. 05/03/23 19:27 PM
[2023-05-03 19:29] LABS: Basophils # (auto) 0.03 K/uL (0.00-0.20); Basophils % (auto) 0.5 %; Eosinophils # (auto) 0.12 K/uL (0.00-0.50); Eosinophils % (auto) 1.8 %; Hematocrit (blood only) 30.9 % (42.0-52.0); Hemoglobin 10.7 g/dl (14.0-18.0); Immature Granulocytes # (auto) 0.03 K/uL (0.01-0.20); Immature Granulocytes % (auto) 0.5 %; Lymphocytes # (auto) 2.09 K/uL (1.20-3.40); Lymphocytes % (auto) 32.1 %; Mean Corpuscular Hemoglobin 31.4 pg (25.0-34.0); Mean Corpuscular Hgb Conc 34.6 g/dL (32.0-36.0); Mean Corpuscular Volume 90.6 fL (80.0-100.0); Mean Platelet Volume 9.5 fL (9.4-12.4); Monocytes # (auto) 0.67 K/uL (0.11-0.59); Monocytes % (auto) 10.3 %; Neutrophils # (auto) 3.57 K/uL (1.40-6.50); Neutrophils % (auto) 54.8 %; Platelet Count 135 K/uL (130-400); RDW Standard Deviation 42.6 fL (36.4-46.3); Red Blood Count 3.41 M/uL (4.70-6.10); White Blood Count 6.51 K/ul (4.8-10.8)
--- NOTE | 2023-05-03 19:33 | Emergency Department Note ---
Impression & Plan Stroke-like symptoms, TIA (transient ischemic attack), Headache ED Provider Note NAME: MERCEDES EDWARDS AGE: 82 SEX: M : 1940 ARRIVES VIA: Ambulance INFORMANT: Patient, EMS, the patient's ED PROVIDER(S): Bryce Arrieta DO CHIEF COMPLAINT: Strokelike symptoms HPI: The patient is an 82-year-old male who presented to the emergency department with strokelike symptoms. The patient was having dinner with his significant other at approximately 6 PM. The patient started noticing that he did not feel well. He kept saying he did not feel himself and knew something was wrong. He has a history of TIA as well as coronary artery disease. He does take Plavix. The patient states that he has been compliant with his outpatient medication regimen. The patient was having left-sided facial numbness as well as left arm weakness. He tried to stand and could not stand well. It is unclear if he had unilateral lower extremity weakness. The patient told his significant other to take him to the hospital but because he could not stand she called 911 and the patient was brought to the emergency department. We did receive a prehospital notification and the patient was made a stroke alert prior to arrival. Upon arrival to the emergency department the patient's symptoms have significantly improved. He was taken directly to CT. ROS: See above HPI for pertinent positives & negatives. A total of 10 systems reviewed and were otherwise negative. PAST MEDICAL HISTORY: See Below PAST SURGICAL HISTORY: See Below FAMILY HISTORY: See Below SOCIAL HISTORY: See Below HOME MEDICATIONS: See Below ALLERGIES: See Below VITALS: See Below PHYSICAL EXAMINATION: GENERAL: Patient is awake alert in no acute distress patient is resting comfortably and showing no signs of anxiety EYES: The conjunctivae are clear. The pupils are round and reactive. EARS, NOSE, MOUTH AND THROAT: The nose is without any evidence of any deformity. Mucous membranes are moist. Tongue is midline. NECK: The neck is nontender and supple. RESPIRATORY: Normal respiratory effort is noted there is no evidence of wheezing rhonchi or rales CARDIOVASCULAR: Regular rate and rhythm noted there no murmurs rubs or gallops normal S1 normal S2. GASTROINTESTINAL: The abdomen is soft. Abdomen is nontender. MUSCULOSKELETAL/EXTREMITIES: There is no evidence of gross deformity full range of motion is noted in the hips and shoulders. SKIN: There is no obvious evidence of any rash. There are no petechiae, pallor or cyanosis noted. NEUROLOGIC: Patient is awake alert and oriented x3. Fur Feeder strength was symmetric. There is no drift in the upper extremities. There is no facial droop. Speech was clear. The patient is able to hold each leg off the bed for greater than 5 seconds. MEDICAL DECISION MAKING: The patient is an 82-year-old male who presented to the emergency department for an evaluation of strokelike symptoms. The patient was made a stroke alert prior to arrival. He was noted to have left-sided weakness as well as numbness on the left side of his face by the prehospital personnel. The symptoms were noted to be improving rapidly. Upon my evaluation in CAT scan the patient's weakness had essentially resolved. He was never observed to have lower extremity weakness but according to his significant other he had significant difficulty ambulating. He has a history of TIA in the past. At this time the patient has no signs of large vessel occlusion. Plain CT shows no acute process. The patient is inside the window for TNK however his symptoms are rapidly improving and at this time he would not be a candidate for TNK. I discussed patient's laboratory and radiographic studies with him and his significant other. I discussed his condition with the telestroke neurologist. The patient was treated with IV magnesium. I discussed the patient's condition with the [facility] hospitalist group. They have agreed to evaluate the patient in the emergency department for further management and disposition. Triage Nursing notes reviewed. Prior medical records reviewed Vital Signs: reviewed and remarkable for elevated blood pressure. Differential diagnosis: Infection, dehydration, metabolic abnormality, hypo/hyperglycemia, electrolyte disturbance, anemia, hypoxia, cardiac sources, intracerebral event, toxicologic, neurologic, as well as other pathologies. ER treatment provided: See below Diagnostics interpreted by me: ECG: EKG was obtained in the emergency department. My interpretation is sinus rhythm at 83 bpm. First-degree AV block was noted. Right bundle branch block pattern was noted. This was compared to a tracing from December 23, 2021. No changes were noted. Cardiac Monitoring: An order was placed for continuous cardiac monitoring. The monitor shows a rate of 88 bpm with sinus rhythm. Laboratory studies: As stated above and show below. Imaging studies: See below. Radiographic imaging was reviewed by myself Consultation(s): I discussed this case with Dr. Segovia who is on-call for the telestroke neurology group with [facility]. ED COURSE: Procedures: none Critical Care: I have personally spent greater than 45 minutes of critical care time in the direct management of this patient. This includes bedside care, interpretation of diagnostic studies, and testing, discussion with consultants, patient, and family members, and other required patient management activities. This 45 minutes is in excess of all separately billable procedures. Past Med/Surg History Medical History Anemia Chronic, baseline hgb 11-12 range per chart review Stage 3b chronic kidney disease Baseline creatinine 1.5-1.6 per chart review Nephrolithiasis CAD (coronary artery disease) 2012= stent x1, 2014= stent x1, 2016= stents x3-F/UDR KIKI PRAVIN Obesity Osteoarthritis Kidney stones BPH (benign prostatic hyperplasia) GERD (gastroesophageal reflux disease) Controlled Diabetes mellitus, type 2 NIDDM Hypertension Myocardial Infarction 7+ years ago Hyperlipidemia Surgical History H/O right inguinal hernia repair (03/25/21) Open Right Inguinal Hernia Repair with Mesh(Right) - Kye Beaulieu MD, FACS 03/25/2021 History of total shoulder replacement Right reverse TSA (03/23/18): Grade 2 view, MAC#4, ETT 7.5 + PNB at [facility]. No issues per post-op anesthesia progress note. H/O colonoscopy Previous back surgery + hardware Hx of transurethral resection of prostate History of cholecystectomy History of total hip arthroplasty Left H/O cystoscopy + stent/stone extraction History of cardiac cath 2012= stent x1, 2013= stent x1, 2016= stents x3 Family History Mother Family hx of colon cancer Other Heart disease Social History Smoking Status: Former smoker Tobacco Type: Cigarettes Second Hand Exposure: No; Do You Dip or Chew Tobacco: No (QUIT); Hx Alcohol Use: No Hx Substance Use: No Preferred Language: Lithuanian Communication Ability: Effective Visual Impairment: No Limitations Hearing Ability: Use of Hearing Aid 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 Beliefs That Will Affect Care: None marital status: Current Living Situation: Spouse current occupational status: retired Feels Safe at Home: Yes Diet: regular during the past year weight has: decreased > 10 lbs Assistive Devices: Denture - Upper, Denture - Lower, Glasses and Hearing Aid - Bilateral Allergies Allergies Allergy/AdvReac Type Severity Reaction Status Date / Time bee venom protein (honey bee) Allergy Intermediate Throat/Tongue/Eye Verified 12/26/22 10:53 Swelling Iodinated Contrast Media Allergy Intermediate Itching/welts Verified 12/26/22 10:53 on abdomen Home Meds Home Medications Medication Instructions Recorded Confirmed atorvastatin 20 mg tablet (Lipitor) 20 mg PO HS 02/23/18 12/26/22 lisinopril 10 mg tablet 10 mg PO QAM 02/23/18 12/26/22 magnesium oxide 400 mg PO QAM 02/23/18 12/26/22 metformin 750 mg tablet,extended 750 mg PO BID 02/23/18 12/26/22 release 24 hr nitroglycerin 0.4 mg sublingual 1 tab sublingual UD PRN Pain 02/23/18 12/26/22 tablet (Nitrostat) aspirin 81 mg tablet,delayed 81 mg PO HS 10/12/18 12/26/22 release (Safia Low Dose Aspirin) cholecalciferol (vitamin D3) 25 1,000 units PO QAM 10/12/18 12/26/22 mcg (1,000 unit) capsule mecobalamin (vitamin B12) 1,000 1,000 mcg PO QAM 05/13/19 12/26/22 mcg chewable tablet famotidine 20 mg tablet (Pepcid) 20 mg PO QAM 05/19/20 12/26/22 multivitamin (Daily Multi-Vitamin 1 tab PO QAM 05/19/20 12/26/22 tablet) [id number]-fish oil-vit D3 300 1 cap PO HS 10/22/20 12/26/22 mg-1,000 mg-1,000 unit capsule (Fish Oil-Vit D3) zinc gluconate 50 mg tablet 100 mg PO QAM 10/22/20 12/26/22 metoprolol tartrate 25 mg tablet 25 mg PO HS 10/26/20 12/26/22 glipizide 5 mg tablet, extended 5 mg PO QAM 12/23/21 12/26/22 release 24 hr omeprazole 20 mg capsule,delayed 20 mg PO QPM 12/23/21 12/26/22 release Results & Data (ED) Vital Signs Vital Signs - 24 hr 05/03/23 19:17 05/03/23 19:20 05/03/23 19:21 Temperature 36.9 C Temperature Source Oral Pulse Rate 82 84 84 Pulse Rate from SpO2 Sensor 83 Respiratory Rate 20 17 Respiratory Effort / Characteristics Non-Labored Spontaneous Respiratory Depth Normal Respiratory Pattern Regular Blood Pressure 170/87 H 170/87 H Blood Pressure Mean 114 114 Blood Pressure Position Sitting Pulse Oximetry 97 95 Oxygen Delivery Method Room Air Room Air Sepsis Recent Fever Within 48 Hours No Sepsis New/Unexplained Change in Mental Status N/A Sepsis Action Taken by Nursing No Action Required 05/03/23 19:30 05/03/23 19:44 05/03/23 19:45 Temperature Temperature Source Pulse Rate 84 88 Pulse Rate from SpO2 Sensor 86 Respiratory Rate 17 19 Respiratory Effort / Characteristics Respiratory Depth Respiratory Pattern Blood Pressure 168/92 H 180/96 H Blood Pressure Mean 117 124 Blood Pressure Position Pulse Oximetry 96 96 Oxygen Delivery Method Room Air Room Air Sepsis Recent Fever Within 48 Hours Sepsis New/Unexplained Change in Mental Status Sepsis Action Taken by Long Term Medications Current Medication List: was personally reviewed by me Laboratory Data Attestation: I reviewed the patient's lab results. 05/03/23 19:19 05/03/23 19:19 Lab Results 05/03/23 05/03/23 Range/Units 19:19 19:29 WBC 6.51 (4.8-10.8) K/ul RBC 3.41 L (4.70-6.10) M/uL Hgb 10.7 L (14.0-18.0) g/dl Hct 30.9 L (42.0-52.0) % MCV 90.6 (80.0-100.0) fL MCH 31.4 (25.0-34.0) pg MCHC 34.6 (32.0-36.0) g/dL RDW Std Deviation 42.6 (36.4-46.3) fL RDW Coeff of Raymond 13.0 (11.5-14.5) % Plt Count 135 (130-400) K/uL MPV 9.5 (9.4-12.4) fL Immature Gran % (Auto) 0.5 % Neut % (Auto) 54.8 % Lymph % (Auto) 32.1 % Boyd % (Auto) 10.3 % Eos % (Auto) 1.8 % Baso % (Auto) 0.5 % Neut # (Auto) 3.57 (1.40-6.50) K/uL Lymph # (Auto) 2.09 (1.20-3.40) K/uL Boyd # (Auto) 0.67 H (0.11-0.59) K/uL Eos # (Auto) 0.12 (0.00-0.50) K/uL Baso # (Auto) 0.03 (0.00-0.20) K/uL Immature Gran # (Auto) 0.03 (0.01-0.20) K/uL ESR < 1 (0-20) mm/hr PT 11.4 (9.0-12.0) Seconds INR 1.0 (0.9-1.1) APTT 25 (21-31) Seconds PTT Ratio 0.9 Sodium 140 (136-145) mmol/L Potassium 3.7 (3.5-5.1) mmol/L Chloride 107 (98-107) mmol/L Carbon Dioxide 26 (21-32) mmol/L Anion Gap 7 (3-11) BUN 20 (6-23) mg/dl Creatinine 1.35 (0.6-1.4) mg/dl Est Cr Clr Drug Dosing 48.7 ml/min Est GFR ( Amer) 56.3 ml/min Est GFR (Non-Af Amer) 48.5 ml/min BUN/Creatinine Ratio 14.8 (10-20) Glucose 125 H (70-99(Fasting)) mg/dl POC Glucose 130 H (70-99) mg/dl Calcium 8.4 L (8.6-10.3) mg/dl Magnesium 1.4 L (1.7-2.4) mg/dl Total Bilirubin 0.6 (0.2-1.0) mg/dl AST 15 (13-39) U/L ALT 15 (7-52) U/L Alkaline Phosphatase 37 (34-104) U/L Troponin I High Sens 4.7 (0-20) pg/ml C-Reactive Protein < 0.50 (0-0.5) mg/dl Total Protein 6.1 (6.0-8.3) gm/dl Albumin 3.8 (3.4-5.0) gm/dl Globulin 2.3 L (2.5-4.0) gm/dl Albumin/Globulin Ratio 1.7 (0.9-2) Administered Medications Magnesium Sulfate/Dextrose (Magnesium Sulfate / D5w) 1 gm in 100 mls @ 100 mls/hr IV NOW STA Stop: 05/03/23 20:43 Last Admin: 05/03/23 20:02 Dose: 100 mls/hr Documented By: Discontinued Medications Diphenhydramine HCl (Diphenhydramine 50 Mg/Ml Vial) 50 mg IV ONE ONE Stop: 05/03/23 18:54 Last Admin: 05/03/23 19:16 Dose: 50 mg Documented By: Ioversol (Optiray 320 125ml) 115 ml IV ONCE ONE Stop: 05/03/23 19:06 Last Admin: 05/03/23 19:06 Dose: 115 ml Documented By: STACIE Methylprednisolone (Methylprednisolone 40 Mg/Ml Vial) 40 mg IV NOW ONE Stop: 05/03/23 18:54 Last Admin: 05/03/23 19:16 Dose: 40 mg Documented By: Imaging Data Attestation: I personally reviewed and interpreted this imaging study as follows: My Impression: CT of the brain was obtained in the emergency department. My interpretation is no intracranial hemorrhage or mass effect, final report below 1 view chest x-ray was obtained in the emergency department. My interpretation is poor inspiratory effort, tortuous aorta was noted, there is no definite infiltrate or free air, right shoulder replacement noted, this was compared to a chest x-ray from December 23, 2021. There is no significant changes noted. Final report pending Radiologist's Impression: Head CT 05/03/23 18:53 CR Exam(s): CT HEAD Without Contrast EXAM: CT Head Without Intravenous Contrast CLINICAL HISTORY: Reason for exam: neuro deficit, acute stroke suspected. TECHNIQUE: Axial computed tomography images of the head/brain without intravenous contrast. CTDI is 30.26 mGy and DLP is 448.01 mGy-cm. Automated exposure control was utilized for the study. A dose lowering technique was utilized adhering to the principles of ALARA. COMPARISON: MRI brain on 12/23/2021. CT head on 12/23/2021. FINDINGS: Brain: No acute infarct or hemorrhage identified. No extra-axial fluid collection. No mass effect or midline shift. Scattered areas of hypoattenuation in the supratentorial white matter likely represent chronic small vessel ischemic changes. Ventricles and sulci: Prominence of the ventricles and sulci is likely secondary to cerebral volume loss. Bones: Normal. No bony lesion or acute fracture. Subcutaneous tissues: Normal. Sinuses: Normal. No air-fluid levels or mucosal thickening. Mastoid air cells: Normal. Orbits: Grossly unremarkable. Other: Atherosclerotic calcifications in the intracranial vasculature. IMPRESSION: 1. No acute intracranial abnormality. 2. Mild chronic small vessel ischemic changes and cerebral volume loss. Communications: Call Doctor Stroke Electronically signed by: Gustavo Cuellar M.D. 05/03/23 19:27 PM Head CTA 05/03/23 18:53 CR Exam(s): CTA HEAD With Contrast IV Amt: 115 ml optiray 320 EXAM: CT Angiography Head With Intravenous Contrast CLINICAL HISTORY: Reason for exam: neuro deficit, acute stroke suspected. TECHNIQUE: Axial computed tomographic angiography images of the head with intravenous contrast. CTDI is 20.76 mGy and DLP is 10.38 mGy-cm. Automated exposure control was utilized for the study. A dose lowering technique was utilized adhering to the principles of ALARA. MIP reconstructed images were created and reviewed. CONTRAST: Patient received 115 ml optiray 320 of IV contrast COMPARISON: None FINDINGS: Right internal carotid artery: Atherosclerotic changes in the distal right ICA. No significant stenosis. No aneurysm. Right anterior cerebral artery: Unremarkable. No occlusion or significant stenosis. No aneurysm. Right middle cerebral artery: Unremarkable. No occlusion or significant stenosis. No aneurysm. Right posterior cerebral artery: Unremarkable. No occlusion or significant stenosis. No aneurysm. Right vertebral artery: Unremarkable as visualized. Left internal carotid artery: Atherosclerotic changes in the distal left ICA. No significant stenosis. No aneurysm. Left anterior cerebral artery: Unremarkable. No occlusion or significant stenosis. No aneurysm. Left middle cerebral artery: Unremarkable. No occlusion or significant stenosis. No aneurysm. Left posterior cerebral artery: Unremarkable. No occlusion or significant stenosis. No aneurysm. Left vertebral artery: Atherosclerotic calcifications in the V4 segment of the left vertebral artery. No significant stenosis. Basilar artery: Unremarkable. No occlusion or significant stenosis. No aneurysm. IMPRESSION: No significant stenosis, occlusion, or aneurysm in the central or large intracranial arteries. Communications: Call Doctor Stroke Electronically signed by: Gustavo Cuellar M.D. 05/03/23 19:32 PM Neck CTA 05/03/23 18:53 CR Exam(s): CTA NECK With Contrast IV Amt: 115 ml optiray 320 EXAM: CT Angiography Neck With Intravenous Contrast CLINICAL HISTORY: Reason for exam: neuro deficit, acute stroke suspected. TECHNIQUE: Routine carotid CT angiography protocol was performed with intravenous contrast. NASCET criteria using the distal ICAs for comparison were used for evaluation of stenoses. CTDI is 13.06 mGy and DLP is 500.26 mGy-cm. Automated exposure control was utilized for the study. A dose lowering technique was utilized adhering to the principles of ALARA. MIP reconstructed images were created and reviewed. CONTRAST: Patient received 115 ml optiray 320 of IV contrast COMPARISON: None FINDINGS: VASCULATURE: Right common carotid artery: Unremarkable. No occlusion or significant stenosis. No dissection. Right internal carotid artery: Minimal atherosclerotic calcification in the right carotid bulb. No significant stenosis. No dissection. Right external carotid artery: Unremarkable. No occlusion. Right vertebral artery: Unremarkable. No occlusion or significant stenosis. No dissection. Left common carotid artery: Unremarkable. No occlusion or significant stenosis. No dissection. Left internal carotid artery: Atherosclerotic calcifications in the left carotid bulb and proximal left ICA. No significant stenosis. No dissection. Left external carotid artery: Unremarkable. No occlusion. Left vertebral artery: Unremarkable. No occlusion or significant stenosis. No dissection. NECK: Bones/joints: Degenerative changes of the spine. No acute fracture. Soft tissues: Unremarkable. Thyroid: Heterogeneous left thyroid lobe could be further evaluated with ultrasound if clinically indicated. Lung apices: Clear. CAROTID STENOSIS REFERENCE USING NASCET CRITERIA: % ICA stenosis = (1 - narrowest ICA diameter/diameter of distal cervical ICA) x 100. Mild - <50% stenosis. Moderate - 50-69% stenosis. Severe - 70-94% stenosis. Near occlusion - 95-99% stenosis. Occluded - 100% stenosis. IMPRESSION: No significant stenosis, occlusion, or dissection. Communications: 05/03/23 19:30 Call Doctor Regarding Stroke, called Dr. Arrieta on 05/02 19: 28 (-05:00) Electronically signed by: Gustavo Cuellar M.D. 05/03/23 19:30 PM Discharge Plan Visit Data Chief Complaint: Stroke Alert Stated Complaint: [facility] ED Provider: Bryce Arrieta Discharge Problem: Stroke-like symptoms, TIA (transient ischemic attack), Headache Patient Disposition: Being Evaluated by Hospitalist Forms Stand Alone Forms: My [facility] Prescriptions Prescriptions: No Action mecobalamin (vitamin B12) 1,000 mcg tablet,chewable 1,000 mcg PO QAM cholecalciferol (vitamin D3) 1,000 unit capsule 1,000 units PO QAM famotidine [Pepcid] 20 mg tablet 20 mg PO QAM multivitamin [Daily Multi-Vitamin] Tablet 1 tab PO QAM lisinopril 10 mg Tablet 10 mg PO QAM metformin 750 mg Tablet Extended Release 24 Hr 750 mg PO BID magnesium oxide 400 mg magnesium Tablet 400 mg PO QAM atorvastatin [Lipitor] 20 mg Tablet 20 mg PO HS nitroglycerin [Nitrostat] 0.4 mg Tablet, Sublingual 1 tab Sublingual UD PRN (Reason: Pain) aspirin [Safia Low Dose Aspirin] 81 mg tablet,delayed release (DR/EC) 81 mg PO HS zinc gluconate 50 mg Tablet 100 mg PO QAM [id number] oil-vit D3 [Fish Oil-Vit D3] 300-1,000-1,000 mg-mg-unit Capsule 1 cap PO HS metoprolol tartrate 25 mg tablet 25 mg PO HS glipizide 5 mg tablet extended release 24hr 5 mg PO QAM omeprazole 20 mg capsule,delayed release(DR/EC) 20 mg PO QPM Referrals Referrals: Aishwarya Weathers CRNP [Primary Care Provider] - Discharge Problem: Headache Qualifiers: Headache type: unspecified Headache chronicity pattern: unspecified pattern I ntractability: not intractable Qualified Code(s): R51.9 - Headache, unspecified
[2023-05-03 19:41] LABS: Partial Thromboplastin Ratio 0.9; Partial Thromboplastin Time 25 Seconds (21-31); Prothrombin Time 11.4 Seconds (9.0-12.0)
[2023-05-03 20:01] LABS: Alanine Aminotransferase 15 U/L (7-52); Albumin Globulin Ratio 1.7 (0.9-2); Albumin Level 3.8 gm/dl (3.4-5.0); Alkaline Phosphatase 37 U/L (34-104); Anion Gap 7 (3-11); Aspartate Aminotransferase 15 U/L (13-39); BUN Creatinine Ratio 14.8 (10-20); Bilirubin,Total 0.6 mg/dl (0.2-1.0); Blood Urea Nitrogen 20 mg/dl (6-23); C Reactive Protein < 0.50 mg/dl (0-0.5); Calcium 8.4 mg/dl (8.6-10.3); Carbon Dioxide 26 mmol/L (21-32); Chloride 107 mmol/L (98-107); Creatinine Clr Calc Pharmacy 48.7 ml/min; Est GFR (African American) 56.3 ml/min; Est GFR (Non-African American) 48.5 ml/min; Globulin 2.3 gm/dl (2.5-4.0); Glucose 125 mg/dl (70-99(Fasting)); Magnesium 1.4 mg/dl (1.7-2.4); Potassium 3.7 mmol/L (3.5-5.1); Sodium 140 mmol/L (136-145); Total Protein 6.1 gm/dl (6.0-8.3)
[2023-05-03] MEDS: MAGNESIUM SULFATE / D5W 1 GM/100 ML BAG IV STA (20:02)
[2023-05-03 20:07] LABS: Troponin I High Sensitivity 4.7 pg/ml (0-20)
--- NOTE | 2023-05-03 20:37 | History & Physical Report ---
Date of Service May 03, 2023 Assessment & Plan (1) TIA (transient ischemic attack): (2) Headache: (3) Stroke-like symptoms: (4) CAD (coronary artery disease): (5) Primary osteoarthritis, right shoulder: (6) Diabetes mellitus type II, controlled: (7) GERD (gastroesophageal reflux disease): (8) HLD (hyperlipidemia): (9) Hypertension: (10) BPH (benign prostatic hyperplasia): (11) Stage 3b chronic kidney disease: Plan 82-year-old male with past medical history of hypertension, BPH, osteoarthritis, DM type II, CKD type III (creatinine baseline of 1.5-1.7), GERD, chronic anemia, prior TIA, and history of MIs who was admitted due to management of TIA versus CVA. TIA vs CVA -Patient arrived to the emergency department by ambulance due to to strokelike symptoms (weakness/numbness on left side) -Symptoms significantly improved by the time of arrival to the emergency department -Head CT without acute intracranial abnormality and showing mild chronic small vessel ischemic changes -Head CTA showing no significant stenosis/occlusion or aneurysm in the central large intracranial arteries -Neck CTA without evidence of stenosis/occlusion or dissections -Telestroke neurologist evaluated patient and deemed that he had been having either TIA or small CVA -Due to symptom improvement, we will not proceed with TNK and instead manage medically -Will continue DAPT with aspirin 81 mg and Plavix 75 mg daily -Will increase patient's home atorvastatin to 80 mg -Permissive hypertension with goal to maintain blood pressures below 200 mmHg systolic and below 100 mmHg diastolic IV labetalol 5 mg as needed ordered -MRI wo contrast ordered -TTE with bubble ordered -Hemoglobin A1c ordered -Fasting lipid profile ordered -Speech evaluation passed, so will start diet -PT and OT consult ordered -Admit patient to PCU/telemetry HTN -Permissive hypertension as detailed above -Home medications held for now DM-II -Blood sugar on ED labs 130 -Last hemoglobin A1c from 10/2020 was 5.2% -Hemoglobin A1c ordered -Will hold home metformin and glipizide -Manage with Lantus and SSI during admission CKD-III -Baseline creatinine between 1.5 and 1.7 -ED labs with creatinine at 1.35 -Monitor a.m. lab Chronic Anemia -Hemoglobin in ED labs of 10.7 -On chart review, seems patient hemoglobin has been averaging between 11 and 12 -Patient asymptomatic -Monitor a.m. labs CAD -Continue home meds GERD -Continue home meds OA - Tylenol as needed for pain control Dispo: PCU/Tele VTE ppx: SCDs Diet: HH, DM2, low sodium GI ppx: PPI History of Present Illness Chief Complaint: TIA vs CVA Primary Care Provider: MARIBEL Medellin 82-year-old male patient with past medical history of hypertension, BPH, osteoarthritis, DM type II, CKD type III (creatinine baseline of 1.5-1.7), CAD, history of prior MIs (1 stent placement in 2012, 1 placement in 2013, 3 stent placements in 2016), GERD, chronic anemia, prior TIA who presents to the emergency department through ambulance due to strokelike symptoms. Patient refers that around 6 PM today he was having dinner with his family and then suddenly started feeling unwell. He states that he began to feel numb/"weird "on his left side, mainly his left arm and leg. He also refers that he was feeling some numbness in the left side of his face, and that when he attempted to stand he was feeling wobbly and unsteady, and his vision was slightly wavy. He refers that he had experienced similar symptoms in the past when he was having an [place], and so had taken 1 sublingual nitroglycerin and aspirin at home without significant improvement of symptoms. At this time, he had told his family to take him to the hospital since he felt something was wrong, but because he was feeling so unsteady his did not believe that he would be able to get to the hospital and called an ambulance. Stroke alert was called prior to his arrival. On arrival to the emergency department, patient refers that he was feeling significantly improved and did not feel the symptoms he had felt earlier this evening. He was taken straight to CT which was ultimately u nremarkable. His CTA was also performed which did not reveal any acute changes, and neck CTA was also without acute changes. Telestroke was called, which ultimately determined that patient had symptoms consistent with a TIA or small CVA. Since patient's symptoms have been rapidly improving, he was not considered a patient for TNK so they have recommended medical management. On evaluation at bedside, patient was found to be awake alert and oriented in all spheres, accompanied by his family, afebrile, no acute distress. He was able to carry full conversation and referred resolution of his symptoms of numbness/weakness on his left side but does state that he has a headache which has been going on since he was at home and symptoms began. Denies having any chest pain, palpitations, shortness of breath, vision changes, nausea, vomiting, diarrhea, diaphoresis, weakness, or any other systemic symptoms. ED Course: Stroke alert was activated prior to patient's arrival, and patient was taken straight to CT once he did not arrive through ambulance, telestroke neurologist consulted and after discussion about patient's condition, patient was started on IV magnesium as per neurologist recommendation Labs/Imaging: CBC without leukocytosis, hemoglobin at 10.7, platelets at 135, INR of 1.0, CMP showing electrolytes within reference range today for magnesium was low at 1.4, renal markers within reference range and creatinine around patient's baseline, blood glucose of 125 last hemoglobin A1c was from 10/2020 and was of 5.2%, troponins negative (4.7), urine without signs of infection, head CT without acute intracranial abnormality and showing mild chronic small vessel ischemic changes, head CTA showing no significant stenosis/occlusion or aneurysm in the central large intracranial arteries, neck CTA without evidence of stenosis/occlusion or dissections. Allergies Allergy/AdvReac Type Severity Reaction Status Date / Time bee venom protein (honey bee) Allergy Intermediate Throat/Tongue/Eye Verified 05/03/23 20:34 Swelling Iodinated Contrast Media Allergy Intermediate Itching/welts Verified 05/03/23 20:34 on abdomen Home Medications Medication Instructions Recorded Confirmed Type atorvastatin 20 mg tablet (Lipitor) 20 mg PO HS 02/23/18 05/03/23 History lisinopril 10 mg tablet 10 mg PO QAM 02/23/18 05/03/23 History magnesium oxide 400 mg PO .[id number] 02/23/18 05/03/23 History metformin 750 mg tablet,extended 750 mg PO BID 02/23/18 05/03/23 History release 24 hr nitroglycerin 0.4 mg sublingual 1 tab sublingual UD PRN Pain 02/23/18 05/03/23 History tablet (Nitrostat) aspirin 81 mg tablet,delayed 81 mg PO HS 10/12/18 05/03/23 History release (Safia Low Dose Aspirin) cholecalciferol (vitamin D3) 25 1,000 units PO QPM 10/12/18 05/03/23 History mcg (1,000 unit) capsule mecobalamin (vitamin B12) 1,000 1,000 mcg PO QAM 05/13/19 05/03/23 History mcg chewable tablet famotidine 20 mg tablet (Pepcid) 20 mg PO QPM 05/19/20 05/03/23 History multivitamin (Daily Multi-Vitamin 1 tab PO QAM 05/19/20 05/03/23 History tablet) [id number]-fish oil-vit D3 300 1 cap PO HS 10/22/20 05/03/23 History mg-1,000 mg-1,000 unit capsule (Fish Oil-Vit D3) metoprolol tartrate 25 mg tablet 12.5 mg PO BID 10/26/20 05/03/23 History glipizide 5 mg tablet, extended 5 mg PO QAM 12/23/21 05/03/23 History release 24 hr omeprazole 20 mg capsule,delayed 20 mg PO QPM 12/23/21 05/03/23 History release clopidogrel 75 mg tablet 75 mg PO DAILY 05/03/23 05/03/23 History gabapentin 100 mg capsule 100 mg PO TID 05/03/23 05/03/23 History magnesium oxide 800 [facility] 05/03/23 05/03/23 History Past Med/Surg History Medical History Anemia Chronic, baseline hgb 11-12 range per chart review Stage 3b chronic kidney disease Baseline creatinine 1.5-1.6 per chart review Nephrolithiasis CAD (coronary artery disease) 2012= stent x1, 2013= stent x1, 2015= stents x3-F/[facility] Obesity Osteoarthritis Kidney stones BPH (benign prostatic hyperplasia) GERD (gastroesophageal reflux disease) Controlled Diabetes mellitus, type 2 NIDDM Hypertension Myocardial Infarction 7+ years ago Hyperlipidemia Surgical History H/O right inguinal hernia repair (03/25/21) Open Right Inguinal Hernia Repair with Mesh(Right) - Kye Beaulieu MD, FACS 03/25/2021 History of total shoulder replacement Right reverse TSA (03/23/18): Grade 2 view, MAC#4, ETT 7.5 + PNB at [facility]. No issues per post-op anesthesia progress note. H/O colonoscopy Previous back surgery + hardware Hx of transurethral resection of prostate History of cholecystectomy History of total hip arthroplasty Left H/O cystoscopy + stent/stone extraction History of cardiac cath 2012= stent x1, 2013= stent x1, 2015= stents x3 Family History Mother Family hx of colon cancer Other Heart disease Social History Smoking Status: Never smoker Tobacco Type: Cigarettes Second Hand Exposure: No; Do You Dip or Chew Tobacco: No (QUIT); Hx Alcohol Use: No Hx Substance Use: No Preferred Language: Turkmen Communication Ability: Effective Visual Impairment: No Limitations Hearing Ability: Use of Hearing Aid Manager [place] Required: No Beliefs That Will Affect Care: None marital status: Current Living Situation: Spouse current occupational status: retired Feels Safe at Home: Yes Diet: regular during the past year weight has: decreased > 10 lbs Assistive Devices: None Review of Systems Review of Systems: As per HPI Physical Exam Physical Exam: GENERAL: Awake alert and oriented in all spheres, afebrile, no acute distress HEAD: Atraumatic and normocephalic EYES: EOM intact, pupils equal reactive to light THROAT: Normal to visual inspection CHEST: Symmetric chest expansions with respiration CARDIO: Regular rate and rhythm, no rubs murmurs or gallops appreciated PULMONARY: Clear to auscultation bilaterally, normal respiratory effort, no respiratory distress GI: Soft, nontender, nondistended : No Rasheed EXTREMITIES: No swelling bilateral lower extremities, no calf tenderness, no visible deformities noted SKIN: No rashes NEURO: Patient with normal speech and not dysarthric, pupillary reflex intact bilaterally, symmetric eyebrow rise, symmetric smile, normal tongue protrusion, symmetric nub card tender strength, no drift, able to lift lower right extremity without difficulty, able to lift left lower extremity but slightly limited by pain due to history of left hip replacement, no sensory changes Results & Data Results & Data Vital Signs (Past 12 Hours) Vital Signs Temp Pulse Resp BP Pulse Ox O2 Del Method 05/03/23 19:45 88 19 180/96 H 96 Room Air 05/03/23 19:44 96 Room Air 05/03/23 19:30 84 17 168/92 H 05/03/23 19:21 84 05/03/23 19:20 84 17 170/87 H 95 Room Air 05/03/23 19:17 36.9 C 82 20 170/87 H 97 Room Air Supervising Physician Co-Signing Physician Notes Attending addendum: I have physically seen this patient, have supervised the medical residents activities, and agree with the H&P unless as otherwise noted. Assessment and Plan: TIA/strokelike symptoms- Symptoms of weakness and numbness on left side had resolved by the time of arrival to the ED CT head without contrast primarily showing mild chronic small vessel ischemic disease CTA of head negative CTA neck negative Telestroke neurology recommended no TNK Continue dual antiplatelet therapy, as patient has been on aspirin 81 mg daily and clopidogrel 75 mg daily Increase atorvastatin from 20 to 80 mg daily Check a fasting lipid panel Stroke without tPA order set MRI brain without contrast ordered The patient will be admitted to telemetry for serial cardiac enzymes, serial EKG's, cardiac rhythm monitoring and a 2-D echocardiogram with Dopplers. Order hemoglobin A1c Permissive hypertension as noted Diabetes mellitus- Hold metformin and glipizide Place on Accu-Cheks with NovoLog SSI Remaining orders and notations as noted (2) Headache Headache chronicity pattern: unspecified pattern Headache type: unspecified Intractability: not intractable Qualified Code(s): R51.9 - Headache, unspecified
[2023-05-03 20:53] LABS: Appearance Urine Clear (Clear); Bilirubin Urine Negative (Negative); Blood Urine Negative (Negative); Color Urine Yellow; Glucose Urine UA Negative (Negative); Ketones Urine Negative (Negative); Leukocyte Esterase Urine Negative (Negative); Nitrite Urine Negative (Negative); Protein Urine Negative (Negative); Specific Gravity Urine 1.019 (1.000-1.030); Urobilinogen Urine Negative (Negative)
[2023-05-03] MEDS ORDERED: ACETAMINOPHEN 325 MG TAB PO PRN (21:38)
[2023-05-03] MEDS ORDERED: LABETALOL HCL IV 5 MG/ML 20ML IV PRN (21:38)
[2023-05-03] MEDS ORDERED: PHARMACIST DISCHARGE MED REC CONSULT PRN (21:38)
[2023-05-03] MEDS ORDERED: CARBOHYDRATES FOR HYPOGLYCEMIA PO PRN (22:00)
[2023-05-03] MEDS ORDERED: DEXTROSE 50% 50 ML SYRINGE IV PRN (22:00)
[2023-05-03] MEDS ORDERED: GLUCAGON FOR INJ 1 MG VIAL IM PRN (22:00)
[2023-05-03] MEDS ORDERED: GLUCOSE 10 TAB/TUBE PO PRN (22:00)
[2023-05-03] MEDS ORDERED: GLUCOSE 40% GEL 15 GM TUBE PO PRN (22:00)
[2023-05-03] MEDS: METOPROLOL TARTRATE 25 MG TAB PO SCH (22:46)
[2023-05-03] MEDS: CHOLECALCIFEROL 25 MCG (1000 UNITS) TAB PO SCH (23:11)
[2023-05-03] MEDS: PANTOprazole 40 MG TAB PO SCH (23:11)
[2023-05-03] MEDS: OMEGA-3 (PURIFIED FISH OIL) 1 GM CAP PO SCH (23:12)
[2023-05-03] MEDS: GABAPENTIN 100 MG CAP PO SCH (23:12)
[2023-05-03] MEDS: FAMOTIDINE 20 MG TAB PO SCH (23:12)
[2023-05-03] MEDS: ASPIRIN 81 MG ECTAB PO SCH (23:13)
[2023-05-03] MEDS: INSULIN ASPART PER UNIT CHARGE SC SCH (23:14)
[2023-05-03] MEDS: LANTUS PER UNIT CHARGE SQ SCH (23:18)
--- NOTE | 2023-05-04 00:19 | Magnetic Resonance Report ---
Exam(s): MRI HEAD Without Contrast EXAM: MR Head Without Intravenous Contrast CLINICAL HISTORY: Reason for exam: TIA vs CVA. TECHNIQUE: Magnetic resonance images of the head/brain without intravenous contrast in multiple planes. COMPARISON: 12/23/2021 FINDINGS: Brain: Mild parenchymal atrophy. Chronic cerebellar infarcts. No acute infarct. No mass. No hemorrhage. Mild periventricular and subcortical white matter changes consistent with chronic microvascular ischemic changes. Ventricles: Unremarkable. No ventriculomegaly. Bones/joints: Unremarkable. No acute fracture. Sinuses: Unremarkable as visualized. No acute sinusitis. Mastoid air cells: Unremarkable as visualized. No mastoid effusion. Orbits: Unremarkable as visualized. IMPRESSION: No acute abnormality. Electronically signed by: Bhanu Maddox MD 05/04/23 00:17 AM
[2023-05-04 04:06] LABS: Basophils # (auto) 0.01 K/uL (0.00-0.20); Basophils % (auto) 0.2 %; Eosinophils # (auto) 0.01 K/uL (0.00-0.50); Eosinophils % (auto) 0.2 %; Immature Granulocytes # (auto) 0.08 K/uL (0.01-0.20); Immature Granulocytes % (auto) 1.5 %; Lymphocytes % (auto) 18.2 %; Mean Corpuscular Hemoglobin 31.4 pg (25.0-34.0); Mean Corpuscular Hgb Conc 35.3 g/dL (32.0-36.0); Mean Platelet Volume 9.5 fL (9.4-12.4); Monocytes % (auto) 1.8 %; Neutrophils # (auto) 4.29 K/uL (1.40-6.50); Neutrophils % (auto) 78.1 %; Platelet Count 155 K/uL (130-400); RDW Coefficient of Variation 12.8 % (11.5-14.5); RDW Standard Deviation 41.6 fL (36.4-46.3); Red Blood Count 3.82 M/uL (4.70-6.10); White Blood Count 5.49 K/ul (4.8-10.8)
[2023-05-04 04:13] LABS: Albumin Globulin Ratio 1.6 (0.9-2); Albumin Level 4.1 gm/dl (3.4-5.0); BUN Creatinine Ratio 16.7 (10-20); Bilirubin,Total 0.7 mg/dl (0.2-1.0); Calcium 8.9 mg/dl (8.6-10.3); Chol HDL Ratio 2.8 (0-5); Creatinine Clr Calc Pharmacy 49.8 ml/min; Est GFR (African American) 57.8 ml/min; Est GFR (Non-African American) 49.9 ml/min; Globulin 2.6 gm/dl (2.5-4.0); Magnesium 1.6 mg/dl (1.7-2.4); Potassium 4.7 mmol/L (3.5-5.1); Total Protein 6.7 gm/dl (6.0-8.3)
--- NOTE | 2023-05-04 07:01 | XRay Report ---
XR chest 1V portable CLINICAL HISTORY: neuro deficit, acute stroke suspected TECHNIQUE: Single frontal radiograph of the chest was obtained. Comparison: Comparison is made to chest radiograph 12/23/2021 FINDINGS: Right shoulder arthroplasty is seen. The cardiomediastinal silhouette is normal. Lungs are underinfla anival but clear. No evidence of pleural effusion or pneumothorax. IMPRESSION: No acute chest disease. ACT 112: Negative or not required by law. Electronically signed by: Adalberto Ross M.D. 05/04/2023 6:59 AM
[2023-05-04 07:13] LABS: Estimated Average Glucose 123 mg/dl; Hemoglobin A1C 5.9 % (4.5-5.6)
[2023-05-04] MEDS: CLOPIDOGREL BISULFATE 75 MG TAB PO SCH (08:54)
[2023-05-04] MEDS: ATORVASTATIN 40 MG TAB PO SCH (08:54)
[2023-05-04] MEDS: CYANOCOBALAMIN (B-12) 500 MCG TABLET PO SCH (08:55)
[2023-05-04] MEDS: MAGNESIUM OXIDE 400 MG TAB PO SCH (08:57)
[2023-05-04] MEDS: CEROVITE ADV FORMULA TAB PO SCH (08:58)
[2023-05-04] MEDS ORDERED: lisinopril 10 MG TAB PO SCH (09:00)
[2023-05-04] MEDS ORDERED: STROKE PATIENT DISCHARGE STA (11:53)
--- NOTE | 2023-05-04 11:53 | Discharge Summary ---
Date of Service May 04, 2023 Admission HPI Per Admitting Provider 82-year-old male patient with past medical history of hypertension, BPH, osteoarthritis, DM type II, CKD type III (creatinine baseline of 1.5-1.7), CAD, history of prior MIs (1 stent placement in 2012, 1 placement in 2013, 3 stent placements in 2016), GERD, chronic anemia, prior TIA who presents to the emergency department through ambulance due to strokelike symptoms. Patient refers that around 6 PM today he was having dinner with his family and then suddenly started feeling unwell. He states that he began to feel numb/"weird "on his left side, mainly his left arm and leg. He also refers that he was feeling some numbness in the left side of his face, and that when he attempted to stand he was feeling wobbly and unsteady, and his vision was slightly wavy. He refers that he had experienced similar symptoms in the past when he was having an [place], and so had taken 1 sublingual nitroglycerin and aspirin at home without significant improvement of symptoms. At this time, he had told his family to take him to the hospital since he felt something was wrong, but because he was feeling so unsteady his did not believe that he would be able to get to the hospital and called an ambulance. Stroke alert was called prior to his arrival. On arrival to the emergency department, patient refers that he was feeling significantly improved and did not feel the symptoms he had felt earlier this evening. He was taken straight to CT which was ultimately unremarkable. His CTA was also performed which did not reveal any acute changes, and neck CTA was also without acute changes. Telestroke was called, which ultimately determined that patient had symptoms consistent with a TIA or small CVA. Since patient's symptoms have been rapidly improving, he was not considered a patient for TNK so they have recommended medical management. On evaluation at bedside, patient was found to be awake alert and oriented in all spheres, accompanied by his family, afebrile, no acute distress. He was able to carry full conversation and referred resolution of his symptoms of numbness/weakness on his left side but does state that he has a headache which has been going on since he was at home and symptoms began. Denies having any chest pain, palpitations, shortness of breath, vision changes, nausea, vomiting, diarrhea, diaphoresis, weakness, or any other systemic symptoms. ED Course: Stroke alert was activated prior to patient's arrival, and patient was taken straight to CT once he did not arrive through ambulance, telestroke neurologist consulted and after discussion about patient's condition, patient was started on IV magnesium as per neurologist recommendation Labs/Imaging: CBC without leukocytosis, hemoglobin at 10.7, platelets at 135, INR of 1.0, CMP showing electrolytes within reference range today for magnesium was low at 1.4, renal markers within reference range and creatinine around patient's baseline, blood glucose of 125 last hemoglobin A1c was from 10/2020 and was of 5.2%, troponins negative (4.7), urine without signs of infection, head CT without acute intracranial abnormality and showing mild chronic small vessel ischemic changes, head CTA showing no significant stenosis/occlusion or aneurysm in the central large intracranial arteries, neck CTA without evidence of stenosis/occlusion or dissections. Principal Diagnosis Transient ischemic attack Discharge Exam General-alert and oriented x3, no fever, no chills HEENT-head atraumatic and normocephalic, pupils equal and reactive to light, extraocular muscles intact Neck-no lymphadenopathy or thyromegaly, trachea midline Chest-clear to auscultation. No rales, wheezing or rhonchi Cardiac-regular rate and rhythm, normal S1 and S2 Abdomen-normal bowel sounds, nontender, no hepatosplenomegaly Extremities-no cyanosis, clubbing, or edema Neuro-cranial nerves II through XII intact, motor and sensory function within no rmal limits, strength symmetrical, no focal deficits Psych-normal affect, normal mood Discharge Data Allergies Allergy/AdvReac Type Severity Reaction Status Date / Time bee venom protein (honey bee) Allergy Intermediate Throat/Tongue/Eye Verified 05/03/23 20:34 Swelling Iodinated Contrast Media Allergy Intermediate Itching/welts Verified 05/03/23 20:34 on abdomen Consultations 05/03/23 20:16 ED Decision to Admit Stat Ordered Studies 05/03/23 18:53 CT angio head w con Stat CT angio neck with con Stat CT head/brain wo con Stat 05/03/23 22:17 MRI Brain [MR brain wo con] Routine Hospital Course (1) TIA (transient ischemic attack): Symptoms have resolved. Brain MRI scan is negative for CVA. Head and neck CTA reveals noncritical disease. He already is on aspirin, atorvastatin, Plavix. (2) Diabetes mellitus type II, controlled: ADA diet. Sliding scale coverage as needed. Resume usual treatment plan at discharge (3) Hypertension: Stable. Continue current medical (4) Coronary artery disease: Stable. Continue current medical management (5) Stage 3b chronic kidney disease: Monitor intake and output. Serial labs Plan Home todayMay 03 Total Time Total Time Spent Total Time Spent (In Minutes): 45 minutes Discharge Plan Discharge Items Patient Disposition: Home - Self-Care Reason For Visit: TIA VS CVA Discharge Diagnosis: TIA Activity: Resume your previous activity Non-emergency contact: Primary Care Provider Call non-emergency contact if: your symptoms worsen Follow-up/Referrals: Aishwarya Weathers CRNP [Primary Care Provider] - Diet: Carb Consistent or DM2 and Heart Healthy Addtl Attending Provider Instructions: Return to the ED if any neurological symptoms recur. No new medications Pending Studies at Discharge: No Stand-Alone Forms: [employer], Smoking Cessation Medications and DC Order Prescriptions: Continued mecobalamin (vitamin B12) 1,000 mcg tablet,chewable 1,000 mcg PO QAM cholecalciferol (vitamin D3) 1,000 unit capsule 1,000 units PO QPM famotidine [Pepcid] 20 mg tablet 20 mg PO QPM multivitamin [Daily Multi-Vitamin] Tablet 1 tab PO QAM lisinopril 10 mg Tablet 10 mg PO QAM metformin 750 mg Tablet Extended Release 24 Hr 750 mg PO BID magnesium oxide 400 mg magnesium Tablet 400 mg PO .[id number] Rx Instructions: Take Mon, Wed, Fri, Sat, Sun atorvastatin [Lipitor] 20 mg Tablet 20 mg PO HS nitroglycerin [Nitrostat] 0.4 mg Tablet, Sublingual 1 tab Sublingual UD PRN (Reason: Pain) aspirin [Safia Low Dose Aspirin] 81 mg tablet,delayed release (DR/EC) 81 mg PO HS [id number]-rtc-epa-fish oil-vit D3 [Fish Oil-Vit D3] 300-1,000-1,000 mg-mg-unit Capsule 1 cap PO HS metoprolol tartrate 25 mg tablet 12.5 mg PO BID glipizide 5 mg tablet extended release 24hr 5 mg PO QAM omeprazole 20 mg capsule,delayed release(DR/EC) 20 mg PO QPM magnesium oxide 400 mg magnesium Tablet 800 mg PO TUTH Rx Instructions: 2Xsweek clopidogrel 75 mg tablet 75 mg PO DAILY gabapentin 100 mg capsule 100 mg PO TID Discharge Orders: Discharge Order (Routine); Ordered 05/04/23 Ordered By: Liang Boles Admission Data Admit Date/Time: 05/03/23 20:59 Attending Provider: Liang Boles Admit Provider: Yuridia Barrientos Primary Care Provider: Aishwarya Weathers Other Providers: Jovani Paris Coding Level of Care Code 90447 INP/OBS DISCH >30 MIN Diagnoses TIA (transient ischemic attack) G45.9 Diabetes mellitus type II, controlled E11.9 Hypertension I10 Coronary artery disease I25.10 Stage 3b chronic kidney disease N18.32
--- NOTE | 2023-05-04 11:57 | Communication Note ---
Date of Service: May 04, 2023 By CMS guidelines, a determination that the admission or continued stay is not medically necessary has been made by a member of the UR committee and a physic mert for this hospital stay, therefore a Code 44 will be completed and the Inpatient admission will be changed to outpatient.
--- OUTSIDE RECORDS SUMMARY | 2023-05-04 13:13 | External Medical Summary | Continuity of Care Document ---
Author Name Unknown Organization [address] Address [address] [place], [place] [id number] Care Team Providers Care Finisher Accordion Name Role Phone Aishwarya Weathers Primary Care Physician [phone] Encounter [facility] [id number] Date(s): 04/13/23 - 04/13/[address] [facility] 476 [facility], [address] [address] [phone] Encounter Diagnosis Body mass index [BMI] 31.0-31.9, adult(Discharge Diagnosis) - 04/13/23 Diabetes mellitus type II, controlled(Discharge Diagnosis) - 04/13/23 Diabetic neuropathy(Discharge Diagnosis) - 04/13/23 Discharge Disposition: Home or Self Care Attending Physician: MARIBEL Weathers Shari A Referring Physician: MARIBEL Weathers Shari A Allergies, Adverse Reactions, Alerts Substance Reaction Severity Status IVP dye itching Active Bee stings rash itching tongue swelling Active Immunizations Given and Recorded Vaccine Date Status Refusal Reason influenza virus vaccine, inactivated 12/16/22 Yuan rded Medications accu check compact Start: 02/02/23 13:25:00 EST, accu check compact, Note to Pharmacy: test am fasting and alternate before meals. Start Date: 02/02/23 Status: Ordered accu check softclix carmen Start: 02/02/23 13:26:00 EST, accu check softclix carmen, Note to Pharmacy: tests twice daily Start Date: 02/02/23 Status: Ordered aspirin 81 mg oral delayed release tablet Start: 02/02/23 11:20:00 EST, 1 tab, PO, Daily Start Date: 02/02/23 Status: Ordered atorvastatin 20 mg oral tablet Start: 02/02/23 10:49:00 EST, 1 tab, PO, Daily Start Date: 02/02/23 Status: Ordered FAMOTIDINE 20 MG TABS Start: 02/02/23 10:50:00 EST, FAMOTIDINE 20 MG TABS, 1 tab, Daily Start Date: 02/02/23 Status: Ordered famotidine 20 mg oral tablet Start: 03/30/23 16:28:00 EST, 1 tab, PO, Daily, Disp# 90 tab, Refills: 2, Pharmacy: [facility] Start Date: 03/30/23 Stop Date: 12/25/23 Status: Ordered Fish Oil 1000 mg oral capsule Start: 02/02/23 11:20:00 EST, 1 cap, Daily Start Date: 02/02/23 Status: Ordered FreeStyle Lite Glucose Monitor Start: 02/02/23 11:22:00 EST, See Instructions, fasting and alternate before meals Start Date: 02/02/23 Status: Ordered gabapentin 100 mg oral capsule Start: 04/13/23 14:15:00 EST, 1 cap, PO, tid, Disp# 270 cap, Refills: 3, Pharmacy: [facility] Start Date: 04/13/23 Status: Ordered glipiZIDE 5 mg oral tablet, extended release Start: 02/02/23 10:50:00 EST, 1 tab, PO, Daily Start Date: 02/02/23 Status: Ordered lisinopril 10 mg oral tablet Start: 02/02/23 10:50:00 EST, 1 tab, PO, Daily Start Date: 02/02/23 Status: Ordered magnesium oxide 420 mg oral tablet Start: 02/02/23 11:19:00 EST, daily except on Monday and twice a day Start Date: 02/02/23 Status: Ordered metFORMIN 750 mg oral tablet, extended release Start: 02/02/23 10:50:00 EST, 1 tab, bid Start Date: 02/02/23 Status: Ordered Metoprolol Tartrate 25 mg oral tablet Start: 02/02/23 10:50:00 EST, 0.5 tab, bid Start Date: 02/02/23 Status: Ordered multivitamin Start: 02/02/23 11:18:00 EST, 1 tab, PO, Daily Start Date: 02/02/23 Status: Ordered Nitrostat 0.4 mg sublingual tablet Start: 02/02/23 11:20:00 EST, 1 tab, SL, q5min, PRN: as needed for chest pain Start Date: 02/02/23 Status: Ordered omeprazole 20 mg oral delayed release capsule Start: 02/02/23 10:50:00 EST, 1 cap, PO, Daily Start Date: 02/02/23 Status: Ordered Vitamin B12 1000 mcg oral tablet Start: 02/02/23 11:22:00 EST, 1 tab, PO, Daily Start Date: 02/02/23 Status: Ordered Vitamin D3 Start: 02/02/23 11:21:00 EST, 25 mcg =, Daily Start Date: 02/02/23 Status: Ordered Mental Status 04/13/23 Barriers to Learning one year None evide nt Mandatory Health Literacy Documentation Yes Health Literacy Communication Barriers N ever Primary Language Filipino Problem List Condition Confirmation Course Effective Dates Status Health St atus Informant BPH (benign prostatic hyperplasia) Confirmed Active Chronic back pain Confirmed Active GERD (gastroesophageal reflux disease) Confirmed Active HTN (hypertension) Confirmed Active Diabetic neuropathy Confirmed Active Colon polyps Confirmed Active Diabetes mellitus, type II Confirmed Active Diagnosis Diagnosis Type Effective Dates Health Status Clinical Service Informant Body mass index [BMI] 31.0-31.9, adult Discharge Diagnosis 04/13/23 Non-Specified Diabetes mellitus type II, controlled Discharge Diagnosis 04/13/23 Non-Specified Diabetic neuropathy Discharge Diagnosis 04/13/23 Non-Specified Vital Signs Most recent to oldest [Reference Range]: 1 Height 172.0 cm (04/13/23 1:34 PM) Patient Weight 92.7 kg (04/13/23 1:34 PM) Body Mass Index 31.33 kg/m2 (04/13/23 1:34 PM) Temperature [36.5-37.9 DegC] 36.8 DegC (04/13/23 1:34 PM) Blood Pressure 126/72mmHg (04/13/23 1:34 PM) Cuff Pulse Pressure 54 mmHg (04/13/23 1:34 PM) Social History Social History Type Response Smoking Status Former Smoker, quit > 1 yr Sex Male Patient Care team information Care Team Personnel Name: MARIBEL Weathers Shari A Position: Nurse Pract - Family Med Member Role: Primary Care Provider Address: Address: [address] [place] [address]
--- OUTSIDE RECORDS SUMMARY | 2023-05-04 13:13 | External Medical Summary | Summary of Care ---
Author Name Unknown Organization [facility] Address [address] [facility] [place] [address] Phone [phone] Care Team Providers Care Body Worker Name Role Phone Aishwarya Weathers Primary Care Provider Reason for Visit * Reason Comments Follow Up Encounter Details Date Type Department Care Team (Late st Contact Info) Description 04/21/2023 3:00 PM EST Office Visit Cardiology, [facility] 132 [facility] [place] [address] Cortney Velazquez PA-C [address] [facility] [place] [address] Coronary artery disease involving k[place]nuk coronary artery of k[place] heart without angina pectoris*; HTN, goal below 140/80; Dyslipidemia, goal LDL below 70 Allergies Active Allergy Reactions Criticality Noted Date Comments Bee Venom High 11/24/2021 Other Reaction(s): Throat/Tongue/Eye Swelling Iodinated Contrast Media High 11/24/2021 Other Reaction(s): Itching/welts on abdomen Other Reaction(s): "welts", itching, Itching/welts on abdomen documented as of this encounter (statuses as of 04/21/2023) Medications Medication Sig Dispensed Refills Start Date End Date Status FISH OIL 1200 MG PO CAPS daily 0 Active Aspirin 81 MG Oral Tablet Chewable Take 1 Tablet by mouth in the morning. 0 Active Atorvastatin Calcium 20 MG Oral Tablet (Lipitor) Take 1 Tablet by mouth daily. 0 Active Clopidogrel Bisulfate 75 MG Oral Tablet (pLAVix) Take 1 Tablet by mouth in the morning. 0 01/03/2022 Active Lisinopril 10 MG Oral Tablet (Prinivil) Take 1 Tablet by mouth in the morning. 0 Active Metoprolol Tartrate 25 MG Oral Tablet (Lopressor) Take 0.5 Tablets by mouth in the morning and 0.5 Tablets before bedtime. 0 11/10/2021 Active metFORMIN HCl ER 750 MG Oral Tablet Extended Release 24 Hour (Glucophage XR) Take 1 Tablet by mouth daily with dinner. 0 Active Famotidine 20 MG Oral Tablet (Pepcid) Take 1 Tablet by mouth in the morning and 1 Tablet before bedtime. 0 Active Nitroglycerin 0.3 MG Sublingual Tablet Sublingual (Nitrostat) Place 1 Tablet under the tongue every 5 minutes as needed for Pain, Chest. 0 Active Magnesium 400 MG Oral Capsule Take 1 Capsule by mouth in the morning. 0 Active glipiZIDE 5 MG Oral Tablet (Glucotrol) Take 1 Tablet by mouth in the morning. 0 Active B-12 1000 MCG Oral Tablet Take 1,000 mcg by mouth in the morning. 0 Active Omeprazole 20 MG Oral Capsule Delayed Release (PriLOSEC) Take 1 Capsule by mouth in the morning. 0 12/23/2021 Active Gabapentin 100 MG Oral Capsule (Neurontin) Take 1 Capsule by mouth in the morning and 1 Capsule before bedtime. 0 04/13/2023 Active GLIMEPIRIDE 4 MG PO TABS 1/2 daily 0 04/21/2023 Discontinued FENOFIBRATE MICRONIZED 134 MG PO CAPS daily 0 04/21/2023 Discontinued CADUET 10-20 MG PO TABS daily 0 04/21/2023 Discontinued AVODART 0.5 MG PO CAPS daily 0 04/21/2023 Discontinued MELOXICAM 15 MG PO TABS daily 0 04/21/2023 Discontinued documented as of this encounter (statuses as of 04/21/2023) Active Problems Problem Noted Date Diagnosed Date Chronic cholecystitis 12/03/2010 documented as of this encounter (statuses as of 04/21/2023) Social History Tobacco Use Types Packs/Day Years Used Date Smoking Tobacco: Never Assessed Sex and Gender Information Value Date Recorded Sex Assigned at Not on file Gender Identity Not on file Sexual Orientation Not on file Job Start Date Occupation Industry Not on file Not on file Not on file documented as of this encounter Last Filed Vital Signs Vital Sign Reading Time Taken Comments Blood Pressure 124/80 04/21/2023 3:13 PM EST Pulse 68 04/21/2023 3:13 PM EST Temperature - - Respiratory Rate 14 04/21/2023 3:13 PM EST Oxygen Saturation - - Inhaled Oxygen Concentration - - Weight 94.3 kg (208 lb) 04/21/2023 3:13 PM EST Height - - Body Mass Index - - documented in this encounter Progress Notes * Cortney Velazquez PA-C - 04/21/2023 3:10 PM EST 04/21/2023 Cardiology Follow Up Primary Dermatology Physician Assistant: Dr. Heck Past Medical History: Coronary artery disease s/p stenting of mid LAD, diagonal 04/2015, s/p stent to RCA 01/2013 RBBB Hypertension Dyslipidemia TIA Neuropathy HPI: Alcides Mcgovern is a 82 year old male who presents for cardiology follow up. Last evaluated approximately one year ago by Dr. Heck. He had previously followed with Dr. Norton and then Dr Jerome in [place]. Presents accompanied by . No acute cardiac complaints. Occasional chest twinges, occurring for years, not bothersome. Denies palpitations, shortness of breath, edema, PND, orthopnea, lightheadedness, syncope. Compliant with all medications. He follows with Dr. Golden of [facility] nephrology for his history of stage 3 chronic kidney disease. REVIEW OF SYSTEMS: See HPI for pertinent positives. All others negative other than those noted in the HPI. CONSTITUTIONAL: No change in weight, No weakness, No fatigue and No fevers, No sweats or chills. PULMONARY: No cough, sputum, or hemoptysis, No wheezing, No shortness of breath and No recent change in breathing. CARDIOVASCULAR: No chest pain, No dyspnea on exertion, No edema, No palpitations and No syncope. GASTROINTESTINAL: No abdominal pain, No change in bowel habits, No significant heartburn, No nausea, No vomiting, No diarrhea, No constipation, No blood in stools or black tarry stools. No dysphagia. HEMATOLOGIC: No abnormal bleeding and No bruising. NEUROLOGICAL: Normal balance, No headaches and No weakness. Review of patient's allergies indicates: Allergen Reactions Bee Venom Other Reaction(s): Throat/Tongue/Eye Swelling Iodinated Contrast Media Other Reaction(s): Itching/welts on abdomen Other Reaction(s): "welts", itching, Itching/welts on abdomen Current Outpatient Medications Medication Sig Dispense Refill FISH OIL 1200 MG PO CAPS daily Aspirin 81 MG Oral Tablet Chewable Take 1 Tablet by mouth in the morning. Atorvastatin Calcium 20 MG Oral Tablet (Lipitor) Take 1 Tablet by mouth daily. Clopidogrel Bisulfate 75 MG Oral Tablet (pLAVix) Take 1 Tablet by mouth in the morning. Lisinopril 10 MG Oral Tablet (Prinivil) Take 1 Tablet by mouth in the morning. Metoprolol Tartrate 25 MG Oral Tablet (Lopressor) Take 0.5 Tablets by mouth in the morning and 0.5 Tablets before bedtime. metFORMIN HCl ER 750 MG Oral Tablet Extended Release 24 Hour (Glucophage XR) Take 1 Tablet by mouthdaily with dinner. Famotidine 20 MG Oral Tablet (Pepcid) Take 1 Tablet by mouth in the morning and 1 Tablet before bedtime. Magnesium 400 MG Oral Capsule Take 1 Capsule by mouth in the morning. glipiZIDE 5 MG Oral Tablet (Glucotrol) Take 1 Tablet by mouth in the morning. Omeprazole 20 MG Oral Capsule Delayed Release (PriLOSEC) Take 1 Capsule by mouth in the morning. Gabapentin 100 MG Oral Capsule (Neurontin) Take 1 Capsule by mouth in the morning and 1 Capsule before bedtime. Nitroglycerin 0.3 MG Sublingual Tablet Sublingual (Nitrostat) Place 1 Tablet under the tongue every5 minutes as needed for Pain, Chest. B-12 1000 MCG Oral Tablet Take 1,000 mcg by mouth in the morning. No current facility-administered medications for this visit. No past medical history on file. No family history on file. Social History Socioeconomic History Marital status: OBJECTIVE/PHYSICAL EXAMINATION: BP 124/80 | Pulse 68 | Resp 14 | Wt 94.3 kg (208 lb) General: No acute distress. A+Ox3. HEENT: Normocephalic. Atraumatic. PERRL. EOMI. Conjunctiva and sclera clear. NECK: No carotid bruits. No JVD. Carotid upstrokes are brisk. Heart: RRR. S1 and S2 noted. No murmur. No rubs or gallops. PMI non displaced. Lungs: Clear to auscultation. No wheezes. No rhonchi. No rales. Abdomen: Normal bowel sounds. Soft. Nontender. No masses or organomegaly. No abdominal bruits. Extremities: No edema. No clubbing or cyanosis. Pulses: radial=2/4, posterior tibial=2/4, dorsalis pedis = 2/4. NEURO: No focal deficits. PSYCH: Appropriate affect and insight. DATA Labs & Imaging Reviewed Below: EKG 03/18/22 Sinus rhythm with 1st degree AV block, 64 bpm Summary of cardiac catheterization report performed 05/26/2015, [facility] [place]: Left main - patent LAD - two mid sequential 50% and 70% lesions. Patent previous stent. D1 mid 75%. D2 proximal 90% LCX - normal RCA - with patent mid stent LV gram - not done Successful coronary angioplasty/stenting of D2 with 2.25 x 12mm Resolute WILLIE. Sucsessful coronary angioplasty/stenting of mid LAD with two overlapping stents - 2.25 x 8mm Resolute and 2.25 x 8mm Xience Alpine 02/10/13, Xience WILLIE to RCA [facility] ([place] event) Summary of transthoracic echocardiogram performed 05/04/2021, [place]: Small left ventricle with normal systolic function, no regional wall motion abnormalities reported,LVEF normal 55 to 60%, right ventricular chamber size and systolic function normal. Aortic valve calcified without aortic stenosis Mildly dilated aortic root , 4.3 centimeters Grade 1 diastolic dysfunction Mild mitral regurgitation ASSESSMENT/PLAN: 82 year old male 1. Coronary artery disease involving kipnuk coronary artery of k[place] heart without angina pectoris - stable, no anginal symptoms - continue aspirin 81 mg daily, plavix 75 mg daily - Continue metoprolol tartrate 12.5 mg twice daily 2. HTN, goal below 140/80 - controlled - continue lisinopril 10 mg daily 3. Dyslipidemia, goal LDL below 70 - lipids done by PCP will request records - continue atorvastatin 20 mg daily DISPOSITION: Follow up 6 months or sooner if symptoms worsen/fail to improve. All questions were answered to the patients satisfaction. Patient advised to report to ED with any and all emergencies. The patient agrees to the above plan and will call with additional questions or concerns. Cortney Velazquez PA-C Cardiology, [facility] [address] [facility] [place] [address] I spent a total of 30 minutes on the date of service in preparation, delivery, and documentation ofthe care provided to Alcides Mcgovern excluding any time spent in the performance of separately billed services. This chart was completed in part utilizing [employer] Speech Voice Recognition Software. Grammatical errors, random word insertions, pronoun errors, and incomplete sentences are an occasional consequence of this system due to software limitations, ambient noise, and hardware issues. Any formal questions or concerns about the content, text, or information contained within the body of this dictation should be directly addressed to the provider for clarification. documented in this encounter Nursing Notes * Marychuy Liao LPN - 04/21/2023 3:13 PM EST Examination Room: 4 Name: Alcides Mcgovern Date of : 1940 Reason for Visit: Follow up Problems/Concerns: denies Interim Hosp(s): denies Chest Pain/SOB: denies MyChart Discussed: DECLINES Patient was instructed to not get up on the exam table until directed and assisted by their provider; patient is to remain seated in the chair/ wheelchair/ exam table for fall prevention and safety reasons. Patient is aware staff will assist stepping down off exam table with personnel. documented in this encounter Plan of Treatment Upcoming Encounters Date Type Department Care Team (Late st Contact Info) Description 11/03/2023 3:00 PM EDT Office Visit Cardiology, [facility] 132 [facility] [place] [address] Cortney Velazquez PA-C [address] [place] [address] [place] [phone] Health Maintenance Due Date Last Done Comments Depression Screening 1952 DTaP,Tdap,and Td Vaccines (1 - Tdap) 12/20/1959 Zoster Vaccines (1 of 2) 1990 Pneumococcal Vaccine: 65+ Years Completed 10/27/2021, 05/26/2015 Influenza Vaccine (FLU shot) Completed , 12/13/2022, 11/26/2019, Additional history exists COVID-19 Vaccine Completed 2022, , 01/20/2021, Additional history exists GARDASIL-HPV IMMUNIZATION SERIES Aged Out No longer eligible based on patient's age to complete this topic Hepatitis B Aged Out No longer eligi ble based on patient's age to complete this topic MENINGOCOCCAL (MENACTRA/MENVEO) Aged Out No longer eligible based on patient's age to complete this topic documented as of this encounter Medical Devices Not on filedocumented as of this encounter Visit Diagnoses Diagnosis Coronary artery disease involving kipnuk coronary artery of k[place] heart without angina pectoris- Primary HTN, goal below 140/80 Unspecified essential hypertension Dyslipidemia, goal LDL below 70 Other and unspecified hyperlipidemia documented in this encounter Care Teams Body Worker Relationship Specialty Start Date End Date Aishwarya Weathers CRNP [address] [facility] [address] [place] [address], [place] [address] PCP - General Nurse Practitioner 04/21/23 documented as of this encounter
--- OUTSIDE RECORDS SUMMARY | 2023-05-04 13:13 | External Medical Summary | Continuity of Care Document ---
Author Name Unknown Organization [facility] [address] Address [address] [place], [place] [id number] Care Team Providers Care Independent Jeweler Name Role Phone Aishwarya Weathers Primary Care Physician [phone] [id number]15/23 - 02/15/23 [facility] [address] [facility] [address] [facility] [address] [place], [place] [phone] Encounter Diagnosis Type 2 diabetes mellitus without complications(Final) - Discharge Disposition: Home or Self Care Attending Physician: MARIBEL Weathers Shari A Referring Physician: MARIBEL Weathers Shari A Allergies, Adverse Reactions, Alerts Substance Reaction Severity Status IVP dye itching Active Bee stings rash itching tongue swelling Active Medications accu check compact Start: 02/02/23 13:25:00 [...] tab, Daily Start Date: 02/02/23 Status: Ordered Fish Oil 1000 mg oral capsule Start: 02/02/23 11:20:00 EST, 1 cap, Daily Start Date: 02/02/23 Status: Ordered FreeStyle Lite Glucose Monitor Start: 02/02/23 11:22:00 EST, See Instructions, fasting and alternate before meals Start Date: 02/02/23 Status: Ordered gabapentin 100 mg oral capsule Start: 02/02/23 10:50:00 EST, 1 cap, PO, bid Start Date: 02/02/23 Status: Ordered glipiZIDE 5 mg oral tablet, [...] =, Daily Start Date: 02/02/23 Status: Ordered Problem List Condition Confirmation Course Effective Dates Status Health St atus Informant BPH (benign prostatic hyperplasia) Confirmed Active Chronic back pain Confirmed Active GERD (gastroesophageal reflux disease) Confirmed Active HTN (hypertension) Confirmed Active Diabetic neuropathy Confirmed Active Diabetes mellitus, type II Confirmed Active Results Laboratory List Name Date Comprehensive Metabolic Panel (COMP META B PANEL) 02/15/23 Hemoglobin A1C (HEMOGLOBIN, A1C) 3 Lipid Profile (LIPOPROTEINS) 02/15/23 Microalbumin, Urine, Random (MICROALBUMI N, RD UR) 02/15/23 Most recent to oldest [Reference Range]: 1 eGFR CKD-EPI [>60 mL/min/1.73 m2] 50 mL/ min/1.73 m2 1 *LOW* (02/15/23 11:28 AM) Estimated Average Glucose 128 mg/dL 2 (02/15/23 11: AM) Non-HDL 63 mg/dL 3 (02/15/23: AM) Estimated CrCl 44.80 mL/min (02/15/23 12:03 PM) Micro Alb (u) [<2.00 mg/dL] 2.36 mg/dL *HI* (02/15/23 11: AM) Anion Gap [5-14 mmol/L] 8 mmol/L (02/15/23 11: AM) Alb [3.5-5.0 g/dL] 4.3 g/dL (02/15/23 11: AM) Alk Phos [38-126 unit/L] 37 unit/L *LOW* (02/15/23 11: AM) ALT [<50 unit/L] 21 unit/L (02/15/23 11: AM) AST [15-46 unit/L] 21 unit/L (02/15/23 11:28 AM) BUN [7-20 mg/dL] 22 mg/dL *HI* (02/15/23 11:28 AM) Ca [8.4-10.2 mg/dL] 8.7 mg/dL (02/15/23 11:28 AM) Chol/HDL 3 (02/15/23 11:28 AM) Chol [125-200 mg/dL] 98 mg/dL *LOW* (02/15/23 11:28 AM) Cl- [96-107 mmol/L] 111 mmol/L *HI* (02/15/23 11:28 AM) HCO3 [22-30 mmol/L] 25 mmol/L (02/15/23 11:28 AM) Cret [0.70-1.30 mg/dL] 1.40 mg/dL *HI* (02/15/23 11:28 AM) HbA1c [4.0-6.0 %] 6.1 % *HI* (02/15/23 11:28 AM) Glu [74-106 mg/dL] 120 mg/dL *HI* (02/15/23 11:28 AM) HDL [>35 mg/dL] 35 mg/dL *LOW* (02/15/23 11:28 AM) K [3.5-5.1 mmol/L] 4.3 mmol/L (02/15/23 11:28 AM) LDL Chol, Calculated [50-130 mg/dL] 27 m g/dL *LOW* (02/15/23 11:28 AM) Micro Alb Ratio [<20 ug/mg cret] 19 ug/m g cret (02/15/23 11:28 AM) Na [137-145 mmol/L] 144 mmol/L (02/15/23 11:28 AM) T Bili [0.2-1.3 mg/dL] 0.7 mg/dL (02/15/23 11:28 AM) Prot [6.3-8.2 g/dL] 7.3 g/dL (02/15/23 11:28 AM) TG [<200 mg/dL] 181 mg/dL (02/15/23 11:28 AM) Creat (u) 125.14 mg/dL 4 (02/15/23 11:28 AM) 1Result Comment: Testing Performed By: Dept of Pathology [facility] [address], [address] [facility], [place] [address] 2Result Comment: Testing Performed By: Dept of Pathology [facility] [address], [address] [facility], [place] [address] 3Result Comment: Testing Performed By: Dept of Pathology [facility] [address], [address] [facility], [place] [address] 4Result Comment: Reference Range for Random Urine Not Established. Social History Social History Type Response Smoking Status Former Smoker, quit > 1 yr Sex Male Patient Care team information Care Team Personnel Name: MARIBEL Weathers Shari A Position: Nurse Pract - Family Med Member Role: Primary Care Provider Address: Address: [address] [address]
--- NOTE | 2023-05-04 16:55 | Electrocardiogram Report ---
Test Reason : Blood Pressure : / mmHG Vent. Rate : 083 BPM Atrial Rate : 083 BPM P-R Int : 280 ms QRS Dur : 126 ms QT Int : 378 ms P-R-T Axes : 009 -09 025 degrees QTc Int : 444 ms Sinus rhythm with 1st degree A-V block Right bundle branch block Possible Old Inferior infarct Abnormal ECG When compared with ECG of 23-DEC-2021 13:36, No significant change was found Confirmed by Marbin Pineda ([id number]) on 05/04/2023 4:55:34 PM Referred By: REFERRED SELF Confirmed By:Marbin Pineda
--- NOTE | 2023-05-04 18:15 | XCELERA ---
[id number] [id number]
--- NOTE | 2023-05-04 20:13 | Billing Data ---
Date of Service May 04, 2023 Coding Level of Care Code 40716 INT INP/OBS CARE
[2023-05-05] MEDS ORDERED: MAGNESIUM OXIDE 400 MG TAB PO SCH (09:00)
== END 2023-05-04 12:30 | disposition home or self-care (01) ==
LOC: ED 19:02 → INTOOBSV 20:59 → SUATTDRO 20:59 → EDINP 20:59

== ENCOUNTER 2023-05-28 00:08 | Inpatient (IN) ==
[2023-05-28 00:44] LABS: Appearance Urine Slightly Cloudy (Clear); Bilirubin Urine 1+ (Negative); Blood Urine 3+ (Negative); Color Urine Red; Glucose Urine UA 1+ (Negative); Ketones Urine Negative (Negative); Leukocyte Esterase Urine Negative (Negative); Nitrite Urine Positive (Negative); Protein Urine 3+ (Negative); Specific Gravity Urine 1.015 (1.000-1.030); Urobilinogen Urine Negative (Negative); pH Urine 5.5 (4.5-7.5)
[2023-05-28 00:46] LABS: Epithelial Cell Urine 0-5 /lpf (0-5); RBC Urine >30 /hpf (0-4)
[2023-05-28 00:47] LABS: Bacteria Urine 2+ (Negative)
--- NOTE | 2023-05-28 00:48 | Emergency Department Note ---
Impression & Plan Complicated urinary tract infection, Hematuria ED Provider Note HISTORY OF PRESENT ILLNESS: Patient is an 82-year-old male presenting with gross hematuria. Patient reports that he was diagnosed with a urinary tract infection last week and started on an antibiotic. He reportedly finished his antibiotic 4 days ago. He initially was having some scant blood in his urine over the last week while on the antibiotic. He states that he noted some bleeding in his urine 3 days ago but it seemed to improve as he voided throughout the day. He states that this morning he woke up and had some gross blood and a few blood clots in his urine, but again the blood seem to improve throughout the day. However, he went to void this evening and had grossly bloody urine and passed multiple clots. He is on Plavix. He denies any lightheadedness or dizziness. Denies any abdominal pain. Denies any recent fevers. ROS: as above PHYSICAL EXAM: Constitutional: Patient appears in no acute distress. HENT: Head: Normocephalic and atraumatic. Eyes: EOMI, PERRL Mouth/Throat: Mucous membranes moist. Neck: Trachea midline. Neck supple. Cardiovascular: RRR, No murmurs, rubs or gallops. Intact distal pulses. Pulmonary/Chest: No respiratory distress. Breath sounds clear and equal bilaterally. No wheezes or rales. Abdominal: Abdomen soft, no tenderness, rebound or guarding. Musculoskeletal: No edema, tenderness or deformity noted. Skin: Warm and dry. No rash, erythema, pallor or cyanosis Psychiatric: Appropriate mood and affect for situation. Neurological: Alert and keenly responsive. CN II-XII grossly intact, moving all extremities equally and fully. MDM: - Vitals signs showed tachycardia. - History obtained via patient. History as above. - Chronic conditions affecting care: HTN; HLD; BPH; DM-2; CKD stage 3; CAD (S/p PCI) - Differential diagnoses include, but are not limited to: BPH; UTI; ureteral stone; bladder mass - Order placed for continuous cardiac monitoring. At this time, monitor showed rate of 86 bpm with normal sinus rhythm, per my interpretation. - External medical records reviewed. Urine culture from 05/15/2023 was reviewed. Patient grew Pseudomonas aeruginosa in his urine that had some intermediate resistance to oral antibiotics ciprofloxacin and levofloxacin. It is sensitive to Zosyn. - Laboratory workup interpreted by myself showed normal WBC; anemia (Hgb 11.5); stable electrolytes; CKD; normal PT/INR; normal lipase - UA showed evidence of infection. - IV zosyn ordered. - Patient continues to get up and use the restroom and is passing large clots and erna hematuria. He was agreeable to three-way catheter placement and continuous bladder irrigation. Unclear if his hematuria is secondary to this asymmetric prostate causing urethral irritation versus complicated UTI. - Discussion was had with caseworker about patient's case and need for admission - Hospitalist consulted for admission - Patient admitted to [facility]ist service for further evaluation and management. ASSESSMENT AND PLAN: Diagnosis: hematuria; complicated UTI Plan: admit Past Med/Surg History Medical History Anemia Chronic, baseline hgb 11-12 range per chart review Stage 3b chronic kidney disease Baseline creatinine 1.5-1.6 per chart review Nephrolithiasis CAD (coronary artery disease) 2012= stent x1, 2013= stent x1, 2016= stents x3-F/UDR KIKI PRAVIN Obesity Osteoarthritis Kidney stones BPH (benign prostatic hyperplasia) GERD (gastroesophageal reflux disease) Controlled Diabetes mellitus, type 2 NIDDM Hypertension Myocardial Infarction 7+ years ago Hyperlipidemia Surgical History H/O right inguinal hernia repair (03/25/21) Open Right Inguinal Hernia Repair with Mesh(Right) - Kye Beaulieu MD, FACS 03/25/2021 History of total shoulder replacement Right reverse TSA (03/23/18): Grade 2 view, MAC#4, ETT 7.5 + PNB at [facility]. No issues per post-op anesthesia progress note. H/O colonoscopy Previous back surgery + hardware Hx of transurethral resection of prostate History of cholecystectomy History of total hip arthroplasty Left H/O cystoscopy + stent/stone extraction History of cardiac cath 2012= stent x1, 2013= stent x1, 2016= stents x3 Family History Mother Family hx of colon cancer Other Heart disease Social History Smoking Status: Former smoker Tobacco Type: Cigarettes Second Hand Exposure: No; Do You Dip or Chew Tobacco: No (QUIT); Hx Alcohol Use: No Hx Substance Use: No Preferred Language: Maltese Communication Ability: Effective Visual Impairment: No Limitations Hearing Ability: Use of Hearing Aid Fibre Optic Cable Splicer Required: No Beliefs That Will Affect Care: None marital status: Current Living Situation: Spouse current occupational status: retired Feels Safe at Home: Yes Diet: regular during the past year weight has: decreased > 10 lbs Assistive Devices: None Allergies Allergies Allergy/AdvReac Type Severity Reaction Status Date / Time bee venom protein (honey bee) Allergy Intermediate Throat/Tongue/Eye Verified 05/28/23 01:25 Swelling Iodinated Contrast Media Allergy Intermediate Itching/welts Verified 05/28/23 01:25 on abdomen Home Meds Home Medications Medication Instructions Recorded Confirmed atorvastatin 20 mg tablet (Lipitor) 20 mg PO HS 02/23/18 05/28/23 lisinopril 10 mg tablet 10 mg PO QPM 02/23/18 05/28/23 magnesium oxide 400 mg PO DAILY 02/23/18 05/28/23 metformin 750 mg tablet,extended 750 mg PO BID 02/23/18 05/28/23 release 24 hr nitroglycerin 0.4 mg sublingual 1 tab sublingual UD PRN Pain 02/23/18 05/28/23 tablet (Nitrostat) aspirin 81 mg tablet,delayed 81 mg PO HS 10/12/18 05/28/23 release (Safia Low Dose Aspirin) cholecalciferol (vitamin D3) 25 1,000 units PO QPM 10/12/18 05/28/23 mcg (1,000 unit) capsule mecobalamin (vitamin B12) 1,000 1,000 mcg PO QAM 05/13/19 05/28/23 mcg chewable tablet famotidine 20 mg tablet (Pepcid) 20 mg PO QPM 05/19/20 05/28/23 multivitamin (Daily Multi-Vitamin 1 tab PO QAM 05/19/20 05/28/23 tablet) [id number]-epa-fish oil-vit D3 300 1 cap PO HS 10/22/20 05/28/23 mg-1,000 mg-1,000 unit capsule (Fish Oil-Vit D3) metoprolol tartrate 25 mg tablet 12.5 mg PO BID 10/26/20 05/28/23 glipizide 5 mg tablet, extended 5 mg PO QAM 12/23/21 05/28/23 release 24 hr omeprazole 20 mg capsule,delayed 20 mg PO QPM 12/23/21 05/28/23 release clopidogrel 75 mg tablet 75 mg PO DAILY 05/03/23 05/28/23 gabapentin 100 mg capsule 100 mg PO TID 05/03/23 05/28/23 Results & Data (ED) Vital Signs Vital Signs - 24 hr 05/28/23 00:13 05/28/23 01:28 05/28/23 01:28 Temperature 36.9 C Temperature Source Oral Pulse Rate 110 H 85 Pulse Rate [Apical] 86 Pulse Rhythm Regular Respiratory Rate 18 18 Respiratory Effort / Characteristics Non-Labored Respiratory Depth Normal Respiratory Pattern Regular Blood Pressure 138/78 Blood Pressure [Right Arm] 125/81 Blood Pressure Mean 98 Blood Pressure Mean [Right Arm] 95 Pulse Oximetry 94 95 94 Oxygen Delivery Method Room Air Room Air Room Air Sepsis Recent Fever Within 48 Hours No Sepsis New/Unexplained Change in Mental Status No Sepsis Action Taken by Nursing No Action Required Laboratory Data 05/28/23 00:58 05/28/23 00:58 Lab Results 05/28/23 05/28/23 Range/Units 00:27 00:58 WBC 5.89 (4.8-10.8) K/ul RBC 3.64 L (4.70-6.10) M/uL Hgb 11.5 L (14.0-18.0) g/dl Hct 33.1 L (42.0-52.0) % MCV 90.9 (80.0-100.0) fL MCH 31.6 (25.0-34.0) pg MCHC 34.7 (32.0-36.0) g/dL RDW Std Deviation 42.6 (36.4-46.3) fL RDW Coeff of Raymond 12.8 (11.5-14.5) % Plt Count 165 (130-400) K/uL MPV 9.8 (9.4-12.4) fL Immature Gran % (Auto) 0.5 % Neut % (Auto) 53.0 % Lymph % (Auto) 32.3 % Real % (Auto) 11.5 % Eos % (Auto) 2.0 % Baso % (Auto) 0.7 % Neut # (Auto) 3.12 (1.40-6.50) K/uL Lymph # (Auto) 1.90 (1.20-3.40) K/uL Real # (Auto) 0.68 H (0.11-0.59) K/uL Eos # (Auto) 0.12 (0.00-0.50) K/uL Baso # (Auto) 0.04 (0.00-0.20) K/uL Immature Gran # (Auto) 0.03 (0.01-0.20) K/uL PT 10.8 (9.0-12.0) Seconds INR 1.0 (0.9-1.1) Sodium 139 (136-145) mmol/L Potassium 3.9 (3.5-5.1) mmol/L Chloride 106 (98-107) mmol/L Carbon Dioxide 26 (21-32) mmol/L Anion Gap 7 (3-11) BUN 25 H (6-23) mg/dl Creatinine 1.48 H (0.6-1.4) mg/dl Est Cr Clr Drug Dosing 42.5 ml/min Est GFR ( Amer) 50.3 ml/min Est GFR (Non-Af Amer) 43.4 ml/min BUN/Creatinine Ratio 16.9 (10-20) Glucose 149 H (70-99(Fasting)) mg/dl Calcium 9.1 (8.6-10.3) mg/dl Total Bilirubin 0.4 (0.2-1.0) mg/dl AST 16 (13-39) U/L ALT 15 (7-52) U/L Alkaline Phosphatase 52 (34-104) U/L Total Protein 6.9 (6.0-8.3) gm/dl Albumin 4.2 (3.4-5.0) gm/dl Globulin 2.7 (2.5-4.0) gm/dl Albumin/Globulin Ratio 1.6 (0.9-2) Lipase 32 (11-82) U/L Urine Color Red Urine Appearance Slightly Cloudy (Clear) Urine pH 5.5 (4.5-7.5) Ur Specific [place] 1.015 (1.000-1.030) Urine Protein 3+ H (Negative) Urine Glucose (UA) 1+ H (Negative) Urine Ketones Negative (Negative) Urine Blood 3+ H (Negative) Urine Nitrite Positive A (Negative) Urine Bilirubin 1+ H (Negative) Urine Urobilinogen Negative (Negative) Ur Leukocyte Esterase Negative (Negative) Urine RBC >30 H (0-4) /hpf Urine WBC 10-30 H (0-5) /hpf Ur Epithelial Cells 0-5 (0-5) /lpf Urine Bacteria 2+ H (Negative) Imaging Data Radiologist's Impression: Abdomen/Pelvis CT 05/28/23 00:45 Exam(s): CT ABDOMEN + PELVIS Without Contrast EXAM: CT Abdomen and Pelvis Without Intravenous Contrast CLINICAL HISTORY: Reason for exam: gross hematuria. TECHNIQUE: Axial computed tomography images of the abdomen and pelvis without intravenous contrast. CTDI is 26.41 mGy and DLP is 1375.9 mGy-cm. Automated exposure control was utilized for the study. A dose lowering technique was utilized adhering to the principles of ALARA. COMPARISON: May 09, 2022 FINDINGS: Lung bases: Mild fibrotic changes in the lung bases, unchanged. No consolidation. ABDOMEN: Liver: Unremarkable. Gallbladder and bile ducts: Previous cholecystectomy. No biliary duct dilation is seen. Pancreas: Unremarkable. No ductal dilation. Spleen: Unremarkable. No splenomegaly. Adrenals: Unremarkable. No mass. Kidneys and ureters: There is a vascular calcification in the right renal hilum. The kidneys are otherwise within normal limits. No hydronephrosis or ureterolithiasis is seen. There is a 1.9 cm simple cyst on the left. No follow-up is required. Stomach and bowel: Bowel loops are nondilated. There is diverticulosis of the lower left and sigmoid colon without evidence of acute diverticulitis. The appendix is normal. No acute inflammatory changes are seen involving the bowel. PELVIS: Appendix: See above. Bladder: See below. Reproductive: 2.2 cm nodular enlargement of the right side of the prostate gland indenting the inferior aspect of the urinary bladder. The bladder is partially distended and partially obscured by metallic artifact. No calculus or bladder wall mass is identified. ABDOMEN and PELVIS: Intraperitoneal space: Unremarkable. No free air. No significant fluid collection. Bones/joints: There is a metallic artifact in the pelvis from a left hip arthroplasty. No acute fracture or dislocation is seen. Moderate multilevel degenerative changes throughout the spine with previous fusion and instrumentation at L3-4. Soft tissues: Unremarkable. Vasculature: The abdominal aorta is mildly calcified but nondilated. Lymph nodes: Unremarkable. No enlarged lymph nodes. IMPRESSION: 1. 2.2 cm nodular enlargement of the right side of the prostate gland indenting the inferior aspect of the urinary bladder. The bladder is partially distended and partially obscured by metallic artifact. No calculus or bladder wall mass is identified. 2. There is a vascular calcification in the right renal hilum. The kidneys are otherwise within normal limits. No hydronephrosis or ureterolithiasis is seen. There is a 1.9 cm simple cyst on the left. No follow-up is required. 3. Bowel loops are nondilated. There is diverticulosis of the lower left and sigmoid colon without evidence of acute diverticulitis. The appendix is normal. No acute inflammatory changes are seen involving the bowel. Electronically signed by: Alcides Best MD 05/28/23 02:08 AM Discharge Plan Visit Data Chief Complaint: Hematuria Stated Complaint: BLOOD IN URINE ED Provider: Kaitlyn Juares Discharge Problem: Complicated urinary tract infection, Hematuria Forms Stand Alone Forms: [facility] Prescriptions Prescriptions: No Action mecobalamin (vitamin B12) 1,000 mcg tablet,chewable 1,000 mcg PO QAM cholecalciferol (vitamin D3) 1,000 unit capsule 1,000 units PO QPM famotidine [Pepcid] 20 mg tablet 20 mg PO QPM multivitamin [Daily Multi-Vitamin] Tablet 1 tab PO QAM lisinopril 10 mg Tablet 10 mg PO QPM metformin 750 mg Tablet Extended Release 24 Hr 750 mg PO BID magnesium oxide 400 mg magnesium Tablet 400 mg PO DAILY atorvastatin [Lipitor] 20 mg Tablet 20 mg PO HS nitroglycerin [Nitrostat] 0.4 mg Tablet, Sublingual 1 tab Sublingual UD PRN (Reason: Pain) aspirin [Safia Low Dose Aspirin] 81 mg tablet,delayed release (DR/EC) 81 mg PO HS [id number] oil-vit D3 [Fish Oil-Vit D3] 300-1,000-1,000 mg-mg-unit Capsule 1 cap PO HS metoprolol tartrate 25 mg tablet 12.5 mg PO BID glipizide 5 mg tablet extended release 24hr 5 mg PO QAM omeprazole 20 mg capsule,delayed release(DR/EC) 20 mg PO QPM clopidogrel 75 mg tablet 75 mg PO DAILY gabapentin 100 mg capsule 100 mg PO TID Referrals Referrals: Aishwarya Weathers CRNP [Primary Care Provider] -
[2023-05-28 01:41] LABS: Basophils # (auto) 0.04 K/uL (0.00-0.20); Basophils % (auto) 0.7 %; Eosinophils # (auto) 0.12 K/uL (0.00-0.50); Hematocrit (blood only) 33.1 % (42.0-52.0); Hemoglobin 11.5 g/dl (14.0-18.0); Immature Granulocytes # (auto) 0.03 K/uL (0.01-0.20); Immature Granulocytes % (auto) 0.5 %; Lymphocytes % (auto) 32.3 %; Mean Corpuscular Hemoglobin 31.6 pg (25.0-34.0); Mean Corpuscular Hgb Conc 34.7 g/dL (32.0-36.0); Mean Corpuscular Volume 90.9 fL (80.0-100.0); Mean Platelet Volume 9.8 fL (9.4-12.4); Monocytes # (auto) 0.68 K/uL (0.11-0.59); Monocytes % (auto) 11.5 %; Neutrophils # (auto) 3.12 K/uL (1.40-6.50); Platelet Count 165 K/uL (130-400); RDW Coefficient of Variation 12.8 % (11.5-14.5); RDW Standard Deviation 42.6 fL (36.4-46.3); Red Blood Count 3.64 M/uL (4.70-6.10); White Blood Count 5.89 K/ul (4.8-10.8)
[2023-05-28 01:58] LABS: Albumin Globulin Ratio 1.6 (0.9-2); Albumin Level 4.2 gm/dl (3.4-5.0); BUN Creatinine Ratio 16.9 (10-20); Bilirubin,Total 0.4 mg/dl (0.2-1.0); Calcium 9.1 mg/dl (8.6-10.3); Creatinine Clr Calc Pharmacy 42.5 ml/min; Est GFR (African American) 50.3 ml/min; Est GFR (Non-African American) 43.4 ml/min; Globulin 2.7 gm/dl (2.5-4.0); Potassium 3.9 mmol/L (3.5-5.1); Total Protein 6.9 gm/dl (6.0-8.3)
--- NOTE | 2023-05-28 02:09 | CT Scan Report ---
Exam(s): CT ABDOMEN + PELVIS Without Contrast EXAM: CT Abdomen and Pelvis Without Intravenous Contrast CLINICAL HISTORY: Reason for exam: gross hematuria. TECHNIQUE: Axial computed tomography images of the abdomen and pelvis without intravenous contrast. CTDI is 26.41 mGy and DLP is 1375.9 mGy-cm. Automated exposure control was utilized for the study. A dose lowering technique was utilized adhering to the principles of ALARA. COMPARISON: May 09, 2022 FINDINGS: Lung bases: Mild fibrotic changes in the lung bases, unchanged. No consolidation. ABDOMEN: Liver: Unremarkable. Gallbladder and bile ducts: Previous cholecystectomy. No biliary duct dilation is seen. Pancreas: Unremarkable. No ductal dilation. Spleen: Unremarkable. No splenomegaly. Adrenals: Unremarkable. No mass. Kidneys and ureters: There is a vascular calcification in the right renal hilum. The kidneys are otherwise within normal limits. No hydronephrosis or ureterolithiasis is seen. There is a 1.9 cm simple cyst on the left. No follow-up is required. Stomach and bowel: Bowel loops are nondilated. There is diverticulosis of the lower left and sigmoid colon without evidence of acute diverticulitis. The appendix is normal. No acute inflammatory changes are seen involving the bowel. PELVIS: Appendix: See above. Bladder: See below. Reproductive: 2.2 cm nodular enlargement of the right side of the prostate gland indenting the inferior aspect of the urinary bladder. The bladder is partially distended and partially obscured by metallic artifact. No calculus or bladder wall mass is identified. ABDOMEN and PELVIS: Intraperitoneal space: Unremarkable. No free air. No significant fluid collection. Bones/joints: There is a metallic artifact in the pelvis from a left hip arthroplasty. No acute fracture or dislocation is seen. Moderate multilevel degenerative changes throughout the spine with previous fusion and instrumentation at L3-4. Soft tissues: Unremarkable. Vasculature: The abdominal aorta is mildly calcified but nondilated. Lymph nodes: Unremarkable. No enlarged lymph nodes. IMPRESSION: 1. 2.2 cm nodular enlargement of the right side of the prostate gland indenting the inferior aspect of the urinary bladder. The bladder is partially distended and partially obscured by metallic artifact. No calculus or bladder wall mass is identified. 2. There is a vascular calcification in the right renal hilum. The kidneys are otherwise within normal limits. No hydronephrosis or ureterolithiasis is seen. There is a 1.9 cm simple cyst on the left. No follow-up is required. 3. Bowel loops are nondilated. There is diverticulosis of the lower left and sigmoid colon without evidence of acute diverticulitis. The appendix is normal. No acute inflammatory changes are seen involving the bowel. Electronically signed by: Alcides Best MD 05/28/23 02:08 AM
[2023-05-28 02:14] LABS: Prothrombin Time 10.8 Seconds (9.0-12.0)
--- NOTE | 2023-05-28 02:55 | History & Physical Report ---
"Date of Service May 28, 2023 Assessment & Plan (1) Hematuria: (2) Complicated urinary tract infection: (3) Coronary artery disease: (4) CAD (coronary artery disease): (5) Diabetes mellitus type II, controlled: (6) GERD (gastroesophageal reflux disease): (7) HLD (hyperlipidemia): (8) Hypertension: (9) BPH (benign prostatic hyperplasia): (10) Enlarged prostate with lower urinary tract symptoms (LUTS): (11) Stage 3b chronic kidney disease: Plan Summary: Alcides is an 82M w/ PMH of BPH w/ LUTS, CKD3b, nephrolithiasis, recurrent UTIs (prior Pseudomonas), DMII, GERD, CAD, HTN, and bilateral hearing loss who presented to the hospital for evaluation of hematuria. ED Course: Initiated continuous bladder irrigation Hematuria Recurrent UTIs w/ prior Pseudomonas | BPH w/ LUTS * Possible UTI vs prostatitis * Hgb 11.5/Hct 33.1 on admission * Urinalysis w/ + nitrites, blood, and bacteria, culture pending * Continuous bladder irrigation started in ED * mIVF started w/ NSS @ 130 cc/hr * Consult Urology, appreciate recommendations * Continue Zosyn CKD 3b * Chronic, stable * Cr 1.48/ GFR 43 on admission (baseline Cr ~ 1.5) Chronic Conditions: * DMII: SSI ordered w/ ACHS checks, Metformin and Glipizide held * HTN: Continue Lisinopril * GERD: Continue Famotidine and Omeprazole * CAD: Aspirin and Plavix held for acute bleeding, statin held, continue Metoprolol & PRN Nitroglycerin * Bilateral Hearing Loss Code Status:Full Diet:Heart Healthy/DMII IVF:mIVF w/ CBI DVT PPx:SCD, ongoing hematuria CM: None Dispo: Med/Surg History of Present Illness Chief Complaint: Hematuria Primary Care Provider: MARIBEL Medellin Alcides is an 82M w/ PMH of BPH w/ LUTS, CKD3b, nephrolithiasis, recurrent UTIs (prior Pseudomonas), DMII, GERD, CAD, HTN, and bilateral hearing loss who presented to the hospital for evaluation of hematuria. Patient notes that he recently had a urinary/prostate infection w/ associated hematuria and was on antibiotics. While on the antibiotic, his hematuria ceased. He finished the antibiotic , and by Monday, the hematuria had returned. Patient notes that he has a burning discomfort at the end of his penis w/o erythema or purulence. In addition, he notes that he has been having pressure/discomfort at his rectum and low back. He notes that normally increasing his PO hydration improves his symptoms, but this time it was unsuccessful. Over the weekend, he had been passing clots in his urine but all were small, this evening he went to urinate and noted a significant amount of blood and large clots, thus he presented to the ER. Patient notes that his most recent clots have come out with very high pressure and are the size of his pinky finger. He denies abdominal pain, fevers, chills, nausea, or emesis. He notes chronic sinus congestion but no other respiratory symptoms. He denies chest pain, dyspnea, or LE edema. Allergies Allergy/AdvReac Type Severity Reaction Status Date / Time bee venom protein (honey bee) Allergy Intermediate Throat/Tongue/Eye Verified 0 05/28/23 01:25 Swelling Iodinated Contrast Media Allergy Intermediate Itching/welts Verified 05/28/23 01:25 on abdomen Home Medications Medication Instructions Recorded Confirmed Type atorvastatin 20 mg tablet (Lipitor) 20 mg PO HS 02/23/18 05/28/23 History lisinopril 10 mg tablet 10 mg PO QPM 02/23/18 05/28/23 History magnesium oxide 400 mg PO DAILY 02/23/18 05/28/23 History metformin 750 mg tablet,extended 750 mg PO BID 02/23/18 05/28/23 History release 24 hr nitroglycerin 0.4 mg sublingual 1 tab sublingual UD PRN Pain 02/23/18 05/28/23 History tablet (Nitrostat) aspirin 81 mg tablet,delayed 81 mg PO HS 10/12/18 05/28/23 History release (Safia Low Dose Aspirin) cholecalciferol (vitamin D3) 25 1,000 units PO QPM 10/12/18 05/28/23 History mcg (1,000 unit) capsule mecobalamin (vitamin B12) 1,000 1,000 mcg PO QAM 05/13/19 05/28/23 History mcg chewable tablet famotidine 20 mg tablet (Pepcid) 20 mg PO QPM 05/19/20 05/28/23 History multivitamin (Daily Multi-Vitamin 1 tab PO QAM 05/19/20 05/28/23 History tablet) il-9-ovk-epa-fish oil-vit D3 300 1 cap PO HS 10/22/20 05/28/23 History mg-1,000 mg-1,000 unit capsule (Fish Oil-Vit D3) metoprolol tartrate 25 mg tablet 12.5 mg PO BID 10/26/20 05/28/23 History glipizide 5 mg tablet, extended 5 mg PO QAM 12/23/21 05/28/23 History release 24 hr omeprazole 20 mg capsule,delayed 20 mg PO QPM 12/23/21 05/28/23 History release clopidogrel 75 mg tablet 75 mg PO DAILY 05/03/23 05/28/23 History gabapentin 100 mg capsule 100 mg PO TID 05/03/23 05/28/23 History Past Med/Surg History Medical History Anemia Chronic, baseline hgb 11-12 range per chart review Stage 3b chronic kidney disease Baseline creatinine 1.5-1.6 per chart review Nephrolithiasis CAD (coronary artery disease) 2012= stent x1, 2013= stent x1, 2015= stents x3-F/UDR KIKI PRAVIN Obesity Osteoarthritis Kidney stones BPH (benign prostatic hyperplasia) GERD (gastroesophageal reflux disease) Controlled Diabetes mellitus, type 2 NIDDM Hypertension Myocardial Infarction 7+ years ago Hyperlipidemia Surgical History H/O right inguinal hernia repair (03/25/21) Open Right Inguinal Hernia Repair with Mesh(Right) - Kye Beaulieu MD, FACS 03/25/2021 History of total shoulder replacement Right reverse TSA (03/23/18): Grade 2 view, MAC#4, ETT 7.5 + PNB at [facility]. No issues per post-op anesthesia progress note. H/O colonoscopy Previous back surgery + hardware Hx of transurethral resection of prostate History of cholecystectomy History of total hip arthroplasty Left H/O cystoscopy + stent/stone extraction History of cardiac cath 2012= stent x1, 2013= stent x1, 2015= stents x3 Family History Mother Family hx of colon cancer Other Heart disease Social History Smoking Status: Former smoker Tobacco Type: Cigarettes Second Hand Exposure: No; Do You Dip or Chew Tobacco: No; Tobacco Cessation Education Requested by Patient: No Hx Alcohol Use: Yes Alcohol type: beer Hx Substance Use: No Preferred Language: Gabonese Communication Ability: Effective Visual Impairment: No Limitations Hearing Ability: Use of Hearing Aid 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 Beliefs That Will Affect Care: None marital status: Current Living Situation: Spouse Current Living Situation Comment: house current occupational status: retired Other Information That Helps Us Care for You: No Feels Safe at Home: Yes Safety Concerns: Feels Safe At This Time Diet: regular during the past year weight has: decreased > 10 lbs Assistive Devices: Denture - Upper, Denture - Lower and Hearing Aid - Bilateral Physical Exam Physical Exam: Gen: NAD, alert, interactive HEENT: Supple, no LAD, no JVD Resp:Non-labored, no wheezing/rhonchi/rales, CTAB CV:RRR, normal S1/S2, no M/R/G Abd: Soft, non-distended, no TTP, normoactive bowels, no masses Extr: 2+ dp bilaterally, no edema Skin: No rashes lesions or erythema Results & Data Results & Data Vital Signs (Past 12 Hours) Vital Signs Temp Pulse Pulse Resp BP BP Pulse Ox 05/28/23 01:28 85 18 94 05/28/23 01:28 86 18 125/81 95 05/28/23 00:13 36.9 C 110 H 138/78 94 O2 Del Method 05/28/23 01:28 Room Air 05/28/23 01:28 Room Air 05/28/23 00:13 Room Air Diagnostic Findings Abdomen/Pelvis CT 05/28/23 00:45 ABDOMEN: Liver: Unremarkable. Gallbladder and bile ducts: Previous cholecystectomy. No biliary duct dilation is seen. Pancreas: Unremarkable. No ductal dilation. Spleen: Unremarkable. No splenomegaly. Adrenals: Unremarkable. No mass. Kidneys and ureters: There is a vascular calcification in the right renal hilum. The kidneys are otherwise within normal limits. No hydronephrosis or ureterolithiasis is seen. There is a 1.9 cm simple cyst on the left. No follow-up is required. Stomach and bowel: Bowel loops are nondilated. There is diverticulosis of the lower left and sigmoid colon without evidence of acute diverticulitis. The appendix is normal. No acute inflammatory changes are seen involving the bowel. PELVIS: Appendix: See above. Bladder: See below. Reproductive: 2.2 cm nodular enlargement of the right side of the prostate gland indenting the inferior aspect of the urinary bladder. The bladder is partially distended and partially obscured by metallic artifact. No calculus or bladder wall mass is identified. ABDOMEN and PELVIS: Intraperitoneal space: Unremarkable. No free air. No significant fluid collection. Bones/joints: There is a metallic artifact in the pelvis from a left hip arthroplasty. No acute fracture or dislocation is seen. Moderate multilevel degenerative changes throughout the spine with previous fusion and instrumentation at L3-4. Soft tissues: Unremarkable. Vasculature: The abdominal aorta is mildly calcified but nondilated. Lymph nodes: Unremarkable. No enlarged lymph nodes. IMPRESSION: 1. 2.2 cm nodular enlargement of the right side of the prostate gland indenting the inferior aspect of the urinary bladder. The bladder is partially distended and partially obscured by metallic artifact. No calculus or bladder wall mass is identified. 2. There is a vascular calcification in the right renal hilum. The kidneys are otherwise within normal limits. No hydronephrosis or ureterolithiasis is seen. There is a 1.9 cm simple cyst on the left. No follow-up is required. 3. Bowel loops are nondilated. There is diverticulosis of the lower left and sigmoid colon without evidence of acute diverticulitis. The appendix is normal. No acute inflammatory changes are seen involving the bowel. Electronically signed by: Alcides Best MD 05/28/23 02:08 AM Supervising Physician Co-Signing Physician Notes Attending addendum: I have physically seen this patient, have supervised the medical residents activities, and agree with the H&P unless as otherwise noted. Assessment and Plan: Gross hematuria/recurrent UTI/enlarged prostate nodule- Follow urine culture and sensitivity History of UTI with Pseudomonas Zosyn 4.5 g IV every [address] scan of abdomen pelvis with prostate gland 2.2 cm right-sided nodular presents indenting the bladder Continuous bladder irrigation begun in ED and will be continued IV fluids History of TURP History of cystoscopy 04/25/2022 with declining of any additional therapy in the outpatient setting with urology Consult urology CKD stage IIIb- Creatinine 1.48 on admission, with base range 1.32-1.73 Follow serially on IV fluids Resident Activity Tracking Resident Involvement: Resident Care Provided Care Provided: Adult Hospital Medicine (night)"
[2023-05-28] MEDS: PIPERACILLIN/TAZOBACTAM 4.5 GM/100 ML BAG IV ONE (03:29)
[2023-05-28] MEDS ORDERED: ONDANSETRON INJ 2 MG/ML 2 ML VIAL IV PRN (05:13)
[2023-05-28] MEDS ORDERED: CARBOHYDRATES FOR HYPOGLYCEMIA PO PRN (05:13)
[2023-05-28] MEDS ORDERED: GLUCOSE 40% GEL 15 GM TUBE PO PRN (05:13)
[2023-05-28] MEDS ORDERED: NITROGLYCERIN SL 0.4 MG/TAB TAB SL PRN (05:13)
[2023-05-28] MEDS ORDERED: POLYETHYLENE (MIRALAX) 17 GM PACK PO PRN (05:13)
[2023-05-28] MEDS ORDERED: DEXTROSE 50% 50 ML SYRINGE IV PRN (05:13)
[2023-05-28] MEDS ORDERED: ACETAMINOPHEN 325 MG TAB PO PRN (05:13)
[2023-05-28] MEDS ORDERED: GLUCOSE 10 TAB/TUBE PO PRN (05:13)
[2023-05-28] MEDS ORDERED: GLUCAGON FOR INJ 1 MG VIAL SQ PRN (05:13)
[2023-05-28] MEDS: SODIUM CHLORIDE 0.9% 1,000 ML IV SCH (05:38)
--- NOTE | 2023-05-28 05:57 | Urology Consultation ---
Date of Consultation May 28, 2023 Assessment & Plan (1) Hematuria: The patient has been admitted on the hospital service. From a urologic perspective we recommend the following: The patient has a Rasheed catheter with continuous bladder irrigation. Would continue this for the present time Serial labs to be followed There is concern patient has an underlying urinary tract infection and an appropriate culture has been sent. The patient has been placed on antibiotics in form of Zosyn. Of note, the patient did have a urinary tract infection on 05/15/2023 which grew Pseudomonas which was sensitive to Zosyn. Will continue antibiotics as noted above and antibiotics be tailored based on his most recent culture results The cause of patient's hematuria may be related to underlying urinary tract infection To complete hematuria evaluation patient may require repeat cystoscopy but this can potentially be employed as an outpatient History of Present Illness Reason for Consultation: Hematuria Attending Physician: Jovani Paris MD History of Present Illness This is a 82-year-old male who presented to the emergency department secondary to hematuria. Patient reports that he had a recent urinary infection with some associated hematuria and he was placed on antibiotics. He notes that the hematuria cleared while he was taking the antibiotic. The patient notes over the past 24 to 48 hours he had return of gross hematuria with occasional blood clots in his urine. He denied any fevers, shakes, or chills. He denied any back or flank pain. He did note that he was passing a few blood clots but overall was able to empty his bladder. Patient denies any history of prostate cancer or kidney stones. He currently follows locally with Dr. Zelalem Vega of [facility] urology. He was most recently seen by Dr. Vega on 12/26/2022 where consideration was to be given for patient undergo a TURP as patient had a cystoscopy on 04/25/2022 that showed some regrowth of her prostate (the patient has had a TURP on 04/07/2021) the patient opted for observation at that time. The patient also added that he does take Plavix. Since arrival to the hospital the patient has had labs and imaging which I independent reviewed. A CT scan of the abdomen pelvis showed the patient had partially distended bladder which is partially obscured by metallic artifact. There were no bladder wall masses or bladder calculi noted. There is no evidence of hydronephrosis. CBC reveals white blood cell count and platelet count were normal. Hemoglobin and hematocrit were 11.5 and 33.1. Chemistry profile showed sodium and potassium were normal. His BUN and creatinine were both slightly elevated at 25 and 1.4. (This level of creatinine was near the patient's baseline). Urinalysis showed 2+ bacteria as well as pyuria with 10-30 white blood cells per high-power field. The specimen was positive for nitrites but was negative for leukocyte Estrace. At the time of my interview the patient was resting comfortably bed he was in no distress. Allergies Allergy/AdvReac Type Severity Reaction Status Date / Time bee venom protein (honey bee) Allergy Intermediate Throat/Tongue/Eye Verified 05/28/23 01:25 Swelling Iodinated Contrast Media Allergy Intermediate Itching/welts Verified 05/28/23 01:25 on abdomen Home Medications Medication Instructions Recorded Confirmed Type atorvastatin 20 mg tablet (Lipitor) 20 mg PO HS 02/23/18 05/28/23 History lisinopril 10 mg tablet 10 mg PO QPM 02/23/18 05/28/23 History magnesium oxide 400 mg PO DAILY 02/23/18 05/28/23 History metformin 750 mg tablet,extended 750 mg PO BID 02/23/18 05/28/23 History release 24 hr nitroglycerin 0.4 mg sublingual 1 tab sublingual UD PRN Pain 02/23/18 05/28/23 History tablet (Nitrostat) aspirin 81 mg tablet,delayed 81 mg PO HS 10/12/18 05/28/23 History release (Safia Low Dose Aspirin) cholecalciferol (vitamin D3) 25 1,000 units PO QPM 10/12/18 05/28/23 History mcg (1,000 unit) capsule mecobalamin (vitamin B12) 1,000 1,000 mcg PO QAM 05/13/19 05/28/23 History mcg chewable tablet famotidine 20 mg tablet (Pepcid) 20 mg PO QPM 05/19/20 05/28/23 History multivitamin (Daily Multi-Vitamin 1 tab PO QAM 05/19/20 05/28/23 History tablet) qq-8-smc-epa-fish oil-vit D3 300 1 cap PO HS 10/22/20 05/28/23 History mg-1,000 mg-1,000 unit capsule (Fish Oil-Vit D3) metoprolol tartrate 25 mg tablet 12.5 mg PO BID 10/26/20 05/28/23 History glipizide 5 mg tablet, extended 5 mg PO QAM 12/23/21 05/28/23 History release 24 hr omeprazole 20 mg capsule,delayed 20 mg PO QPM 12/23/21 05/28/23 History release clopidogrel 75 mg tablet 75 mg PO DAILY 05/03/23 05/28/23 History gabapentin 100 mg capsule 100 mg PO TID 05/03/23 05/28/23 History Patient History Medical History Anemia Chronic, baseline hgb 11-12 range per chart review Stage 3b chronic kidney disease Baseline creatinine 1.5-1.6 per chart review Nephrolithiasis CAD (coronary artery disease) 2012= stent x1, 2014= stent x1, 2016= stents x3-F/UDR KIKI PRAVIN Obesity Osteoarthritis Kidney stones BPH (benign prostatic hyperplasia) GERD (gastroesophageal reflux disease) Controlled Diabetes mellitus, type 2 NIDDM Hypertension Myocardial Infarction 7+ years ago Hyperlipidemia Surgical History H/O right inguinal hernia repair (03/25/21) Open Right Inguinal Hernia Repair with Mesh(Right) - Kye Beaulieu MD, FACS 03/25/2021 History of total shoulder replacement Right reverse TSA (03/23/18): Grade 2 view, MAC#4, ETT 7.5 + PNB at [facility]. No issues per post-op anesthesia progress note. H/O colonoscopy Previous back surgery + hardware Hx of transurethral resection of prostate History of cholecystectomy History of total hip arthroplasty Left H/O cystoscopy + stent/stone extraction History of cardiac cath 2012= stent x1, 2013= stent x1, 2015= stents x3 Family History Mother Family hx of colon cancer Other Heart disease Social History Smoking Status: Former smoker Tobacco Type: Cigarettes Second Hand Exposure: No; Do You Dip or Chew Tobacco: No; Tobacco Cessation Education Requested by Patient: No Hx Alcohol Use: Yes Alcohol type: beer Hx Substance Use: No Preferred Language: Portuguese Communication Ability: Effective Visual Impairment: No Limitations Hearing Ability: Use of Hearing Aid 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 Beliefs That Will Affect Care: None marital status: Current Living Situation: Spouse Current Living Situation Comment: house current occupational status: retired Other Information That Helps Us Care for You: No Feels Safe at Home: Yes Safety Concerns: Feels Safe At This Time Diet: regular during the past year weight has: decreased > 10 lbs Assistive Devices: Denture - Upper, Denture - Lower and Hearing Aid - Bilateral Review of Systems Constitutional: no fever and no chills Ear, Nose, Mouth, Throat: no ear pain Respiratory: no cough Cardiovascular: no chest pain Gastrointestinal: no abdominal pain Genitourinary: + as per Subjective / HPI Musculoskeletal: no back pain Integumentary: no rash Neurologic: no localized weakness Physical Exam Constitutional: WD/WN, vitals as above Eyes: no conjunctival abnormality ENMT: Ears: no hearing impairment Mouth: no oropharynx abnormality Neck: trachea midline Respiratory: normal respiratory effort; no respiratory distress and no labored breathing Cardiovascular: Rate/Rhythm: regular rate and regular rhythm Gastrointestinal (Abdomen): Abdomen is soft and nondistended. There is no pain with palpation Musculoskeletal: No calf tenderness Skin: no rashes Neurologic: moves all extremities Psychiatric: A+Ox3, euthymic affect Genitourinary: No CVA tenderness bilaterally with percussion. Patient has a Rasheed catheter in place draining sow colored urine. The catheter appears patent without any visible clots in the collection tubing. Results & Data Vital Signs (Past 12 Hours) Vital Signs Temp Pulse Pulse Pulse Resp BP BP 05/28/23 05:42 05/28/23 05:19 36.4 C L 70 18 135/77 05/28/23 05:13 36.4 C L 70 18 135/77 05/28/23 05:00 77 05/28/23 03:32 78 18 115/87 05/28/23 01:28 85 18 05/28/23 01:28 86 18 125/81 05/28/23 01:00 90 05/28/23 00:13 36.9 C 110 H 138/78 Pulse Ox O2 Del Method 05/28/23 05:42 Room Air 05/28/23 05:19 97 Room Air 05/28/23 05:13 97 Room Air 05/28/23 05:00 05/28/23 03:32 97 Room Air 05/28/23 01:28 94 Room Air 05/28/23 01:28 95 Room Air 05/28/23 01:00 05/28/23 00:13 94 Room Air PG Care Time/CCT Total # of Minutes Spent Total Time Spent with Patient: Total time spent is greater than 50% in coordination of care (as documented) at patient's floor/unit and/or counseling patient: Coding Level of Care Code 66207 Inpt Consult Level 1 Diagnoses Hematuria R31.9
[2023-05-28] MEDS: PIPERACILLIN/TAZOBACTAM 4.5 GM in DEXTROSE 5% MINI-B 100 ML IV SCH (07:39)
[2023-05-28] MEDS: MULTIVITAMIN TAB PO SCH (08:16)
[2023-05-28] MEDS: GABAPENTIN 100 MG CAP PO SCH (08:16)
[2023-05-28] MEDS: CYANOCOBALAMIN (B-12) 500 MCG TABLET PO SCH (08:17)
[2023-05-28] MEDS: MAGNESIUM OXIDE 400 MG TAB PO SCH (08:17)
[2023-05-28] MEDS: METOPROLOL TARTRATE 25 MG TAB PO SCH (08:17)
[2023-05-28] MEDS: INSULIN ASPART PER UNIT CHARGE SC SCH (08:31)
--- NOTE | 2023-05-28 11:06 | Hospitalist Progress Note ---
Date of Service May 28, 2023 Assessment & Plan (1) Hematuria: Plan: Presents to the hospital with hematuria Etiology is likely UTI or could be from a polyp or a stone CT abdomen pelvis did not show any evidence of stone but patient has had history of stone in the past. Continue continuous bladder irrigation Can be discharged home when urine clears up, to follow-up with urology outpatient Continue to monitor hemoglobin Urology on consult, pressure recommendations. (2) Complicated urinary tract infection: Plan: Patient has a history of recurrent UTI Presents to the hospital with hematuria, urine cultures growing Pseudomonas, sensitive to Zosyn, cefepime ceftazidime. Will continue IV Zosyn for now (3) Diabetes mellitus type II, controlled: Plan: Blood glucose under good control Continue insulin sliding scale (4) Hypertension: Plan: Blood pressure 149/80 today On lisinopril at home Continue (5) Stage 3b chronic kidney disease: Plan: Serum creatinine is at baseline Avoid nephrotoxic's. Plan Continue to monitor in the hospital, continue bladder irrigation If the urine clears up, will discharge and follow-up with urology Full code DVT prophylaxis SCDs Admission and Anticipated Discharge Date Admission Date: May 28, 2023 Results & Data Results & Data Vital Signs (Past 12 Hours) Vital Signs Temp Pulse Pulse Pulse Resp BP BP 05/28/23 07:34 97.3 F L 69 16 149/80 H 05/28/23 05:42 05/28/23 05:19 97.5 F L 70 18 135/77 05/28/23 05:13 97.5 F L 70 18 135/77 05/28/23 05:00 77 05/28/23 03:32 78 18 115/87 05/28/23 01:28 85 18 05/28/23 01:28 86 18 125/81 05/28/23 01:00 90 05/28/23 00:13 98.4 F 110 H 138/78 Pulse Ox O2 Del Method 05/28/23 07:34 95 Room Air 05/28/23 05:42 Room Air 05/28/23 05:19 97 Room Air 05/28/23 05:13 97 Room Air 05/28/23 05:00 05/28/23 03:32 97 Room Air 05/28/23 01:28 94 Room Air 05/28/23 01:28 95 Room Air 05/28/23 01:00 05/28/23 00:13 94 Room Air PG Care Time/CCT Total # of Minutes Spent Total Time Spent with Patient: Total time spent is greater than 50% in coordination of care (as documented) at patient's floor/unit and/or counseling patient: Coding Level of Care Code 86496 SUB INP/OBS CARE 2/35MIN Diagnoses Hematuria R31.9 Complicated urinary tract infection N39.0 Diabetes mellitus type II, controlled E11.9 Hypertension I10 Stage 3b chronic kidney disease N18.32 Time Spent (min) 35
--- NOTE | 2023-05-28 14:26 | Urology Consultation ---
Date of Consultation May 28, 2023 Assessment & Plan (1) Hematuria: (2) Complicated urinary tract infection: (3) Nephrolithiasis: (4) Gross hematuria: (5) Recurrent UTI: Plan Patient with history of bladder outlet obstruction has history of TURP. Was having increasing issues with swelling and discomfort. History of Present Illness Attending Physician: Ishaan Sinclair MD History of Present Illness Consult for urinary issues with hematuria. Patient has mild to moderate discomfort in pelvis and groin going to back and side in waves. Is dealing with acute illness. Has been deconditioned from this. Has decreased mobility significantly with acute issues. Denies significant previous episodes of hematuria. Is still able to void. Has had some minor urinary issues in the past. No severe nausea or vomiting. Currently no fevers. No significant family history of malignancy. Allergies Allergy/AdvReac Type Severity Reaction Status Date / Time bee venom protein (honey bee) Allergy Intermediate Throat/Tongue/Eye Verified 05/28/23 01:25 Swelling Iodinated Contrast Media Allergy Intermediate Itching/welts Verified 05/28/23 01:25 on abdomen Home Medications Medication Instructions Recorded Confirmed Type atorvastatin 20 mg tablet (Lipitor) 20 mg PO HS 02/23/18 05/28/23 History lisinopril 10 mg tablet 10 mg PO QPM 02/23/18 05/28/23 History magnesium oxide 400 mg PO DAILY 02/23/18 05/28/23 History metformin 750 mg tablet,extended 750 mg PO BID 02/23/18 05/28/23 History release 24 hr nitroglycerin 0.4 mg sublingual 1 tab sublingual UD PRN Pain 02/23/18 05/28/23 History tablet (Nitrostat) aspirin 81 mg tablet,delayed 81 mg PO HS 10/12/18 05/28/23 History release (Safia Low Dose Aspirin) cholecalciferol (vitamin D3) 25 1,000 units PO QPM 10/12/18 05/28/23 History mcg (1,000 unit) capsule mecobalamin (vitamin B12) 1,000 1,000 mcg PO QAM 05/13/19 05/28/23 History mcg chewable tablet famotidine 20 mg tablet (Pepcid) 20 mg PO QPM 05/19/20 05/28/23 History multivitamin (Daily Multi-Vitamin 1 tab PO QAM 05/19/20 05/28/23 History tablet) ml-9-hqc-epa-fish oil-vit D3 300 1 cap PO HS 10/22/20 05/28/23 History mg-1,000 mg-1,000 unit capsule (Fish Oil-Vit D3) metoprolol tartrate 25 mg tablet 12.5 mg PO BID 10/26/20 05/28/23 History glipizide 5 mg tablet, extended 5 mg PO QAM 12/23/21 05/28/23 History release 24 hr omeprazole 20 mg capsule,delayed 20 mg PO QPM 12/23/21 05/28/23 History release clopidogrel 75 mg tablet 75 mg PO DAILY 05/03/23 05/28/23 History gabapentin 100 mg capsule 100 mg PO TID 05/03/23 05/28/23 History Patient History Medical History Anemia Chronic, baseline hgb 11-12 range per chart review Stage 3b chronic kidney disease Baseline creatinine 1.5-1.6 per chart review Nephrolithiasis CAD (coronary artery disease) 2012= stent x1, 2013= stent x1, 2016= stents x3-F/UDR KIKI PRAVIN Obesity Osteoarthritis Kidney stones BPH (benign prostatic hyperplasia) GERD (gastroesophageal reflux disease) Controlled Diabetes mellitus, type 2 NIDDM Hypertension Myocardial Infarction 7+ years ago Hyperlipidemia Surgical History H/O right inguinal hernia repair (03/25/21) Open Right Inguinal Hernia Repair with Mesh(Right) - Kye Beaulieu MD, FACS 03/25/2021 History of total shoulder replacement Right reverse TSA (03/23/18): Grade 2 view, MAC#4, ETT 7.5 + PNB at [facility]. No issues per post-op anesthesia progress note. H/O colonoscopy Previous back surgery + hardware Hx of transurethral resection of prostate History of cholecystectomy History of total hip arthroplasty Left H/O cystoscopy + stent/stone extraction History of cardiac cath 2012= stent x1, 2013= stent x1, 2016= stents x3 Family History Mother Family hx of colon cancer Other Heart disease Social History Smoking Status: Former smoker Tobacco Type: Cigarettes Second Hand Exposure: No; Do You Dip or Chew Tobacco: No; Tobacco Cessation Education Requested by Patient: No Hx Alcohol Use: Yes Alcohol type: beer Hx Substance Use: No Preferred Language: [place] Communication Ability: Effective Visual Impairment: No Limitations Hearing Ability: Use of Hearing Aid Social Science Professor Required: No Beliefs That Will Affect Care: None marital status: Current Living Situation: Spouse Current Living Situation Comment: house current occupational status: retired Other Information That Helps Us Care for You: No Feels Safe at Home: Yes Safety Concerns: Feels Safe At This Time Diet: regular during the past year weight has: decreased > 10 lbs Assistive Devices: Denture - Upper, Denture - Lower and Hearing Aid - Bilateral Review of Systems Review of Systems: All systems reviewed & are unremarkable except as noted in HPI & below Physical Exam Physical Exam: General: Alert and oriented x 3 in no acute distress. HEENT: Normocephalic Atraumatic. Inspection normal. Cranial Nerves 2-12 Grossly intact. Nares are clear. Neck is supple. Normal inspection of face. N ormal inspection of neck. Neurologic: No deficits on inspection. Baseline for motor function and sensory. Psychologic: Normal affect. Respiratory: Nonlabored. No use of accessory muscles. No tachypnea or dyspnea. Cardiovascular: No tachycardia Skin: [place] and Dry. No rashes or visible lesions. Extremities: Moving without issues. No motor deficits on inspection Lymphatics: No edema Abdomen: Soft Non-distended. No acites. No rebound or guarding. Results & Data Vital Signs (Past 12 Hours) Vital Signs Temp Pulse Pulse Pulse Resp BP Pulse Ox 05/28/23 07:34 36.3 C L 69 16 149/80 H 95 05/28/23 05:42 05/28/23 05:19 36.4 C L 70 18 135/77 97 05/28/23 05:13 36.4 C L 70 18 135/77 97 05/28/23 05:00 77 05/28/23 03:32 78 18 115/87 97 O2 Del Method 05/28/23 07:34 Room Air 05/28/23 05:42 Room Air 05/28/23 05:19 Room Air 05/28/23 05:13 Room Air 05/28/23 05:00 05/28/23 03:32 Room Air PG Care Time/CCT Total # of Minutes Spent Total Time Spent with Patient: Total time spent is greater than 50% in coordination of care (as documented) at patient's floor/unit and/or counseling patient: Coding Diagnoses Hematuria R31.9 Complicated urinary tract infection N39.0 Nephrolithiasis N20.0 Gross hematuria R31.0 Recurrent UTI N39.0
--- NOTE | 2023-05-28 19:22 | Billing Data ---
Date of Service May 28, 2023 Coding Level of Care Code 80132 INT INP/OBS CARE
[2023-05-28] MEDS: FAMOTIDINE 20 MG TAB PO SCH (20:45)
[2023-05-28] MEDS: PANTOprazole 40 MG TAB PO SCH (20:45)
[2023-05-28] MEDS: lisinopril 10 MG TAB PO SCH (20:45)
[2023-05-28] MEDS: CHOLECALCIFEROL 25 MCG (1000 UNITS) TAB PO SCH (20:45)
[2023-05-28] MEDS: OMEGA-3 (PURIFIED FISH OIL) 1 GM CAP PO SCH (20:45)
[2023-05-29 07:14] LABS: Hematocrit (blood only) 31.2 % (42.0-52.0); Hemoglobin 10.9 g/dl (14.0-18.0); Mean Corpuscular Hemoglobin 31.6 pg (25.0-34.0); Mean Corpuscular Hgb Conc 34.9 g/dL (32.0-36.0); Mean Corpuscular Volume 90.4 fL (80.0-100.0); Mean Platelet Volume 9.5 fL (9.4-12.4); Platelet Count 145 K/uL (130-400); RDW Coefficient of Variation 12.9 % (11.5-14.5); RDW Standard Deviation 42.5 fL (36.4-46.3); Red Blood Count 3.45 M/uL (4.70-6.10); White Blood Count 9.42 K/ul (4.8-10.8)
[2023-05-29 07:32] LABS: BUN Creatinine Ratio 12.6 (10-20); Calcium 8.9 mg/dl (8.6-10.3); Creatinine Clr Calc Pharmacy 39.5 ml/min; Est GFR (African American) 46.2 ml/min; Est GFR (Non-African American) 39.8 ml/min; Potassium 4.3 mmol/L (3.5-5.1)
--- NOTE | 2023-05-29 10:46 | Urology Progress Note ---
Date of Service May 29, 2023 Assessment & Plan (1) Hematuria: (2) BPH (benign prostatic hyperplasia): (3) Complicated urinary tract infection: Plan 82yo M admitted with suspected UTI and gross hematuria. CT abd pelvis showing a 2.2 cm nodular enlargement of the right side of the prostate gland indenting the inferior aspect of the urinary bladder, partially distended bladder which is partially obscured by metallic artifact, no bladder wall masses or bladder calculi noted, and no evidence of hydronephrosis. Hematuria possibly due to UTI, prostate, or other. Pt afebrile and hemodynamically stable. Labs today WBC 9.42, hemoglobin 10.9, creatinine 1.59. Continue to trend. Urine culture pending, on Zosyn. (Prior UC 05/14 grew Pseudomonas which was sensitive to Zosyn). Rasheed intact and draining clear yellow urine with CBI on slowmoderate rate. Continue CBI and titrate as needed. Can wean off CBI as able. Continue supportive care Continue antibiotic therapy and tailor as culture data becomes available. No acute intervention warranted. Will arrange outpatient follow-up and cystoscopy with our office. Pt agreeable. Urology will follow along. Admission and Anticipated Discharge Date Admission Date: May 28, 2023 Subjective Patient examined at bedside this AM. Awake, resting in bed on arrival. No acute distress. Denies any pain or discomfort at present. Denies fever, chills, nausea, vomiting. Rasheed intact, draining clear urine with CBI on slow-moderate rate. Review of Systems Constitutional: as per Subjective / HPI Gastrointestinal: as per Subjective / HPI Genitourinary: + as per Subjective / HPI Physical Exam Constitutional: no acute distress Respiratory: normal respiratory effort; no respiratory distress and no labored breathing Gastrointestinal (Abdomen): Percussion/Palpation: abdomen soft; abdomen nontender Skin: No visible rashes or lesions to exposed skin areas Neurologic: moves all extremities and awake Psychiatric: A+Ox3, euthymic affect Genitourinary: Rasheed intact w/CBI Results & Data Vital Signs (Past 12 Hours) Vital Signs Temp Pulse Resp BP Pulse Ox O2 Del Method 05/29/23 07:28 37.0 C 83 16 123/71 92 Room Air PG Care Time/CCT Total # of Minutes Spent Total Time Spent with Patient: Total time spent is greater than 50% in coordination of care (as documented) at patient's floor/unit and/or counseling patient: Coding Level of Care Code 73509 SUB INP/OBS CARE MIN Diagnoses Hematuria R31.9 BPH (benign prostatic hyperplasia) N40.0 Complicated urinary tract infection N39.0
[2023-05-29] MEDS: PSYLLIUM or GUAR GUM FIBER 4GM PACKET PO SCH ×2 (11:10→20:56)
--- NOTE | 2023-05-29 14:53 | Hospitalist Progress Note ---
Date of Service May 29, 2023 Assessment & Plan (1) Hematuria: Plan: Gross hematuria is resolving with continuous bladder irrigation. Urology consultation and recommendations appreciated. No intervention necessary at this time (2) Complicated urinary tract infection: Plan: Urine culture reveals pinpoint growth. He remains on Zosyn, day 2 (3) Coronary artery disease: Plan: Stable. Continue current medical management (4) Diabetes mellitus type II, controlled: Plan: ADA diet. Metformin held on admission. Sliding scale coverage as needed (5) Hypertension: Plan: Stable. Continue current medical management (6) Stage 3b chronic kidney disease: Plan: Stable. Monitor intake and output. Serial labs Plan Hopeful discharge to home tomorrow, May 29 Admission and Anticipated Discharge Date Admission Date: May 28, 2023 Subjective Alert and oriented. Urology consultation and recommendations appreciated. Rasheed catheter is in place with continuous bladder irrigation ongoing. Hematuria is resolving. Urine culture reveals pinpoint growth. He remains on Zosyn. Hopefully he can go home tomorrow, May 29 Review of Systems 2 Review of Systems: Constitutional-no fever or chills ENT-no blurred vision, no double vision, no epistaxis, no sore throat Respiratory-no cough, no wheezing, no shortness of breath Cardiac-no palpitations, no chest pain, no syncope GI-no nausea, vomiting, diarrhea, melena, hematochezia -no urinary retention, no urinary incontinence, no dysuria. Musculoskeletal-no joint pain, no muscle tenderness Skin-no bruising, no rashes, no pruritus Neuro-no isolated weakness, no paresthesia, no weakness Psych-no depression, no anxiety Physical Exam 2 Physical Exam: General-alert and oriented x3, no fever, no chills HEENT-head atraumatic and normocephalic, pupils equal and reactive to light, extraocular muscles intact Neck-no lymphadenopathy or thyromegaly, trachea midline Chest-clear to auscultation. No rales, wheezing or rhonchi Cardiac-regular rate and rhythm, normal S1 and S2 Abdomen-normal bowel sounds, nontender, no hepatosplenomegaly GUFoley catheter in place with continuous bladder irrigation. Urine is rust colored without gross hematuria Extremities-no cyanosis, clubbing, or edema Neuro-cranial nerves II through XII intact, motor and sensory function within normal limits, strength symmetrical, no focal deficits Psych-normal affect, normal mood Results & Data Results & Data Vital Signs (Past 12 Hours) Vital Signs Temp Pulse Resp BP Pulse Ox O2 Del Method 05/29/23 07:28 37.0 C 83 16 123/71 92 Room Air Laboratory Results 05/29/23 06:42 05/29/23 06:42 PG Care Time/CCT Total # of Minutes Spent Total Time Spent with Patient: Total time spent is greater than 50% in coordination of care (as documented) at patient's floor/unit and/or counseling patient: Coding Level of Care Code 86934 SUB INP/OBS CARE 3/50MIN Diagnoses Hematuria R31.9 Complicated urinary tract infection N39.0 Coronary artery disease I25.10 Diabetes mellitus type II, controlled E11.9 Hypertension I10 Stage 3b chronic kidney disease N18.32
--- NOTE | 2023-05-29 20:29 | Communication Note ---
Date of Service: May 29, 2023 I was notified that patient's Rasheed appeared to be leaking around the Rasheed from his urethra. Nursing turn continuous bladder irrigation off and BladderScan the patient and had approximate 160 cc of urine in his bladder. I presented to the bedside and flushed and irrigated the catheter manually and was able to aspirate several blood clots. I then flushed and irrigated the catheter with copious amounts of sterile water until urine was clear no more clots were visible. I then took the Rasheed catheter to gravity drainage and clear urine began to drain out. Following this intervention nursing performed an additional bladder scan and the patient's bladder was noted to be empty. Prior to beginning this procedure the patient noted he felt fullness in his bladder and at the conclusion he said his bladder felt as though it was empty. I informed the nurses as long as the urine is clear it is okay to keep the continuous bladder irrigation off. If there is any concern that the Rasheed catheter is clogged bladder scans can be employed and nursing may manually flush and irrigate the catheter.
[2023-05-30 08:08] LABS: Basophils # (auto) 0.04 K/uL (0.00-0.20); Basophils % (auto) 0.4 %; Eosinophils # (auto) 0.14 K/uL (0.00-0.50); Eosinophils % (auto) 1.3 %; Hematocrit (blood only) 34.6 % (42.0-52.0); Hemoglobin 12.1 g/dl (14.0-18.0); Immature Granulocytes # (auto) 0.05 K/uL (0.01-0.20); Immature Granulocytes % (auto) 0.5 %; Lymphocytes # (auto) 2.69 K/uL (1.20-3.40); Lymphocytes % (auto) 24.8 %; Mean Corpuscular Hemoglobin 31.3 pg (25.0-34.0); Mean Corpuscular Volume 89.6 fL (80.0-100.0); Mean Platelet Volume 9.7 fL (9.4-12.4); Monocytes # (auto) 1.08 K/uL (0.11-0.59); Monocytes % (auto) 9.9 %; Neutrophils # (auto) 6.86 K/uL (1.40-6.50); Neutrophils % (auto) 63.1 %; Platelet Count 180 K/uL (130-400); RDW Coefficient of Variation 12.9 % (11.5-14.5); RDW Standard Deviation 41.8 fL (36.4-46.3); Red Blood Count 3.86 M/uL (4.70-6.10); White Blood Count 10.86 K/ul (4.8-10.8)
[2023-05-30 08:40] LABS: BUN Creatinine Ratio 11.9 (10-20); Calcium 9.5 mg/dl (8.6-10.3); Creatinine Clr Calc Pharmacy 39.3 ml/min; Est GFR (African American) 45.8 ml/min; Est GFR (Non-African American) 39.5 ml/min; Potassium 3.8 mmol/L (3.5-5.1)
--- NOTE | 2023-05-30 11:04 | Urology Progress Note ---
Date of Service May 30, 2023 Assessment & Plan (1) Hematuria: (2) BPH (benign prostatic hyperplasia): (3) Complicated urinary tract infection: Plan 82yo M admitted with suspected UTI and gross hematuria. CT abd pelvis showing a 2.2 cm nodular enlargement of the right side of the prostate gland indenting the inferior aspect of the urinary bladder, partially distended bladder which is partially obscured by metallic artifact, no bladder wall masses or bladder calculi noted, and no evidence of hydronephrosis. Pt afebrile and hemodynamically stable. Labs today WBC 10.86, hemoglobin 12.1, creatinine 1.60. Continue to trend. Urine culture with more than 3 types of organisms, all low counts. Continues on Zosyn. (Prior UC 05/14 grew Pseudomonas which was sensitive to Zosyn). Hematuria appears to be clearing. CBI was clamped overnight. Rasheed intact and draining appropriately - urine is clear yellow. Continue to monitor urine output. OK to hand irrigate catheter as needed. Continue supportive care and antibiotic therapy. No acute intervention warranted. Will arrange outpatient follow-up and cystoscopy with our office. Pt agreeable. Urology will follow. Admission and Anticipated Discharge Date Admission Date: May 28, 2023 Subjective Patient examined at bedside this AM. Awake, resting in bed on arrival. No acute distress. Denies any pain or discomfort at present. Denies fever, chills, nausea, vomiting. Rasheed intact, draining clear urine off CBI. He did require manual catheter irrigation overnight. Review of Systems Constitutional: as per Subjective / HPI Gastrointestinal: as per Subjective / HPI Genitourinary: + as per Subjective / HPI Physical Exam Constitutional: no acute distress Respiratory: normal respiratory effort; no respiratory distress and no labored breathing Gastrointestinal (Abdomen): Percussion/Palpation: abdomen soft; abdomen nontender Neurologic: moves all extremities and awake Psychiatric: A+Ox3, euthymic affect Genitourinary: Rasheed intact Results & Data Vital Signs (Past 12 Hours) Vital Signs Temp Pulse Resp BP Pulse Ox O2 Del Method 05/30/23 09:00 37.2 C 99 H 18 102/64 93 Room Air 05/30/23 07:20 36.7 C 108 H 16 119/77 91 Room Air PG Care Time/CCT Total # of Minutes Spent Total Time Spent with Patient: Total time spent is greater than 50% in coordination of care (as documented) at patient's floor/unit and/or counseling patient: Coding Level of Care Code 48214 SUB INP/OBS CARE MIN Diagnoses Hematuria R31.9 BPH (benign prostatic hyperplasia) N40.0 Complicated urinary tract infection N39.0
[2023-05-30] MEDS: metFORMIN HCL 500 MG TAB PO SCH (11:52)
--- NOTE | 2023-05-30 13:27 | Discharge Summary ---
Date of Service May 30, 2023 Admission HPI Per Admitting Provider Alcides is an 82M w/ PMH of BPH w/ LUTS, CKD3b, nephrolithiasis, recurrent UTIs (prior Pseudomonas), DMII, GERD, CAD, HTN, and bilateral hearing loss who presented to the hospital for evaluation of hematuria. Patient notes that he recently had a urinary/prostate infection w/ associated hematuria and was on antibiotics. While on the antibiotic, his hematuria ceased. He finished the antibiotic , and by Monday, the hematuria had returned. Patient notes that he has a burning discomfort at the end of his penis w/o erythema or purulence. In addition, he notes that he has been having pressure/discomfort at his rectum and low back. He notes that normally increasing his PO hydration improves his symptoms, but this time it was unsuccessful. Over the weekend, he had been passing clots in his urine but all were small, this evening he went to urinate and noted a significant amount of blood and large clots, thus he presented to the ER. Patient notes that his most recent clots have come out with very high pressure and are the size of his pinky finger. He denies abdominal pain, fevers, chills, nausea, or emesis. He notes chronic sinus congestion but no other respiratory symptoms. He denies chest pain , dyspnea, or LE edema. Principal Diagnosis Gross hematuria Discharge Exam General-alert and oriented x3, no fever, no chills HEENT-head atraumatic and normocephalic, pupils equal and reactive to light, extraocular muscles intact Neck-no lymphadenopathy or thyromegaly, trachea midline Chest-clear to auscultation. No rales, wheezing or rhonchi Cardiac-regular rate and rhythm, normal S1 and S2 Abdomen-normal bowel sounds, nontender, no hepatosplenomegaly GUFoley catheter in place with continuous bladder irrigation. Urine is rust colored without gross hematuria Extremities-no cyanosis, clubbing, or edema Neuro-cranial nerves II through XII intact, motor and sensory function within normal limits, strength symmetrical, no focal deficits Psych-normal affect, normal mood Discharge Data Allergies Allergy/AdvReac Type Severity Reaction Status Date / Time bee venom protein (honey bee) Allergy Intermediate Throat/Tongue/Eye Verified 05/28/23 01:25 Swelling Iodinated Contrast Media Allergy Intermediate Itching/welts Verified 05/28/23 01:25 on abdomen Consultations 05/28/23 02:19 ED Decision to Admit Stat 05/28/23 05:13 Consult Urology Routine Ordered Studies 05/28/23 00:45 CT Abd and Pelvis [CT abd pelvis wo con] Stat Hospital Course (1) Hematuria: Gross hematuria continues to resolve. Urine is now tea colored. Hemoglobin is stable. Will remove Rasheed catheter today, May 29, and discontinue continuous bladder irrigation. He if he is able to avoid, he can be discharged home later today, May 29. Urology consultation and recommendations appreciated. No intervention necessary at this time (2) Complicated urinary tract infection: Urine culture negative for UTI. Zosyn discontinued. (3) Coronary artery disease: Stable. Continue current medical management (4) Diabetes mellitus type II, controlled: ADA diet. Metformin was held on admission and restarted today, May 29. Sliding scale coverage as needed (5) Hypertension: Stable. Continue current medical management (6) Stage 3b chronic kidney disease: Stable. Monitor intake and output. Serial labs Plan Home todayMay 29, if he is able to void after the Rasheed catheter is removed. Total Time Total Time Spent Total Time Spent (In Minutes): 45 minutes Discharge Plan Discharge Items Patient Disposition: Home - Self-Care Reason For Visit: HEMATURIA Discharge Diagnosis: Gross hematuria Activity: Resume your previous activity Non-emergency contact: Primary Care Provider and Urologist Call non-emergency contact if: your symptoms worsen Follow-up/Referrals: Aishwarya Weathers CRNP [Primary Care Provider] - Diet: Carb Consistent or DM2 Addtl Attending Provider Instructions: Follow-up with primary care provider and urology as directed. No new medications at this time Pending Studies at Discharge: No Stand-Alone Forms: [facility] [place] [employer], Smoking Cessation Medications and DC Order Prescriptions: Continued mecobalamin (vitamin B12) 1,000 mcg tablet,chewable 1,000 mcg PO QAM cholecalciferol (vitamin D3) 1,000 unit capsule 1,000 units PO QPM famotidine [Pepcid] 20 mg tablet 20 mg PO QPM multivitamin [Daily Multi-Vitamin] Tablet 1 tab PO QAM lisinopril 10 mg Tablet 10 mg PO QPM metformin 750 mg Tablet Extended Release 24 Hr 750 mg PO BID magnesium oxide 400 mg magnesium Tablet 400 mg PO DAILY atorvastatin [Lipitor] 20 mg Tablet 20 mg PO HS nitroglycerin [Nitrostat] 0.4 mg Tablet, Sublingual 1 tab Sublingual UD PRN (Reason: Pain) aspirin [Safia Low Dose Aspirin] 81 mg tablet,delayed release (DR/EC) 81 mg PO HS ma-1-yce-epa-fish oil-vit D3 [Fish Oil-Vit D3] 300-1,000-1,000 mg-mg-unit Capsule 1 cap PO HS metoprolol tartrate 25 mg tablet 12.5 mg PO BID glipizide 5 mg tablet extended release 24hr 5 mg PO QAM omeprazole 20 mg capsule,delayed release(DR/EC) 20 mg PO QPM clopidogrel 75 mg tablet 75 mg PO DAILY gabapentin 100 mg capsule 100 mg PO TID Discharge Orders: Discharge Order (Routine); Ordered 05/30/23 Ordered By: Liang Guzman/Other Patient Handouts: Managing Type 2 Diabetes Admission Data Admit Date/Time: 05/28/23 03:48 Attending Provider: Liang Boles Admit Provider: Valentina Priest Primary Care Provider: Aishwarya Weathers Other Providers: Jovani Paris; Fuentes Ambrose; Romero Cochran; Julien Zapata; Cece Horton; Matt Eddy; Gabrielle Zelaya; Teresa Rodriguez; Steven Ramirez; Latesha Carter; Zaire Headley; Lane Goel; Zelalem Vega Coding Level of Care Code 85916 INP/OBS DISCH >30 MIN Diagnoses Hematuria R31.9 Complicated urinary tract infection N39.0 Coronary artery disease I25.10 Diabetes mellitus type II, controlled E11.9 Hypertension I10 Stage 3b chronic kidney disease N18.32
--- NOTE | 2023-05-30 14:47 | Hospitalist Progress Note ---
Date of Service May 30, 2023 Assessment & Plan (1) Hematuria: Plan: Gross hematuria continues to resolve. Urine is now tea colored. Hemoglobin is stable. Will remove Rasheed catheter today, May 29, and discontinue continuous bladder irrigation. Urology prefers to keep him another day. (2) Complicated urinary tract infection: Plan: Urine culture is growing 3 organisms and negative for UTI. Zosyn discontinued. (3) Coronary artery disease: Plan: Stable. Continue current medical management (4) Diabetes mellitus type II, controlled: Plan: ADA diet. Metformin was held on admission and restarted today, May 29. Sliding scale coverage as needed (5) Hypertension: Plan: Stable. Continue current medical management (6) Stage 3b chronic kidney disease: Plan: Stable. Monitor intake and output. Serial labs Plan Hopefully home tomorrow, May 30 Admission and Anticipated Discharge Date Admission Date: May 28, 2023 Subjective Alert and oriented. Urology prefers to keep the patient at least 1 more day. Urine culture is growing 3 different organisms. Gross hematuria has resolved and urine is tea colored at this time. Will stop continuous bladder irrigation todayMay 29. Metformin has been restarted. Hemoglobin is stable. Review of Systems 2 Review of Systems: Constitutional-no fever or chills ENT-no blurred vision, no double vision, no epistaxis, no sore throat Respiratory-no cough, no wheezing, no shortness of breath Cardiac-no palpitations, no chest pain, no syncope GI-no nausea, vomiting, diarrhea, melena, hematochezia -no urinary retention, no urinary incontinence, no dysuria. Musculoskeletal-no joint pain, no muscle tenderness Skin-no bruising, no rashes, no pruritus Neuro-no isolated weakness, no paresthesia, no weakness Psych-no depression, no anxiety Physical Exam 2 Physical Exam: General-alert and oriented x3, no fever, no chills HEENT-head atraumatic and normocephalic, pupils equal and reactive to light, extraocular muscles intact Neck-no lymphadenopathy or thyromegaly, trachea midline Chest-clear to auscultation. No rales, wheezing or rhonchi Cardiac-regular rate and rhythm, normal S1 and S2 Abdomen-normal bowel sounds, nontender, no hepatosplenomegaly GUFoley catheter in place with continuous bladder irrigation. Urine is tea colored without gross hematuria Extremities-no cyanosis, clubbing, or edema Neuro-cranial nerves II through XII intact, motor and sensory function within normal limits, strength symmetrical, no focal deficits Psych-normal affect, normal mood Results & Data Results & Data Vital Signs (Past 12 Hours) Vital Signs Temp Pulse Resp BP Pulse Ox O2 Del Method 05/30/23 11:30 36.8 C 88 18 100/63 94 Room Air 05/30/23 09:00 37.2 C 99 H 18 102/64 93 Room Air 05/30/23 07:20 36.7 C 108 H 16 119/77 91 Room Air Laboratory Results 05/30/23 07:24 05/30/23 07:24 PG Care Time/CCT Total # of Minutes Spent Total Time Spent with Patient: Total time spent is greater than 50% in coordination of care (as documented) at patient's floor/unit and/or counseling patient: Coding Level of Care Code 24399 SUB INP/OBS CARE 3/50MIN Diagnoses Hematuria R31.9 Complicated urinary tract infection N39.0 Coronary artery disease I25.10 Diabetes mellitus type II, controlled E11.9 Hypertension I10 Stage 3b chronic kidney disease N18.32
[2023-05-31 07:03] LABS: Basophils # (auto) 0.02 K/uL (0.00-0.20); Basophils % (auto) 0.2 %; Eosinophils # (auto) 0.16 K/uL (0.00-0.50); Eosinophils % (auto) 1.7 %; Hematocrit (blood only) 31.6 % (42.0-52.0); Hemoglobin 10.9 g/dl (14.0-18.0); Immature Granulocytes # (auto) 0.05 K/uL (0.01-0.20); Immature Granulocytes % (auto) 0.5 %; Lymphocytes # (auto) 1.66 K/uL (1.20-3.40); Lymphocytes % (auto) 17.8 %; Mean Corpuscular Hemoglobin 31.3 pg (25.0-34.0); Mean Corpuscular Hgb Conc 34.5 g/dL (32.0-36.0); Mean Corpuscular Volume 90.8 fL (80.0-100.0); Mean Platelet Volume 9.5 fL (9.4-12.4); Monocytes # (auto) 1.01 K/uL (0.11-0.59); Monocytes % (auto) 10.8 %; Neutrophils # (auto) 6.42 K/uL (1.40-6.50); Platelet Count 146 K/uL (130-400); RDW Standard Deviation 42.5 fL (36.4-46.3); Red Blood Count 3.48 M/uL (4.70-6.10); White Blood Count 9.32 K/ul (4.8-10.8)
[2023-05-31 07:27] LABS: BUN Creatinine Ratio 12.1 (10-20); Calcium 8.9 mg/dl (8.6-10.3); Creatinine Clr Calc Pharmacy 30.5 ml/min; Est GFR (African American) 33.8 ml/min; Est GFR (Non-African American) 29.1 ml/min; Potassium 3.6 mmol/L (3.5-5.1)
--- NOTE | 2023-05-31 07:56 | Urology Progress Note ---
Date of Service May 31, 2023 Assessment & Plan (1) Hematuria: (2) BPH (benign prostatic hyperplasia): (3) Complicated urinary tract infection: Plan 82yo M with a hx of TURP 2021 admitted with suspected UTI and gross hematuria. CT abd pelvis showing a 2.2 cm nodular enlargement of the right side of the prostate gland indenting the inferior aspect of the urinary bladder, partially distended bladder which is partially obscured by metallic artifact, no bladder wall masses or bladder calculi noted, and no evidence of hydronephrosis. Pt afebrile and hemodynamically stable. Labs today WBC 9.32, hemoglobin 10.9, creatinine 2.06. Continue to trend. Urine culture with more than 3 types of organisms, all low counts. Continues on Zosyn. (Prior UC 05/14 grew Pseudomonas which was sensitive to Zosyn). CBI clamped yesterday morning. Urine has remained clear off CBI for approximately 24 hours. OK to remove Rasheed catheter this morning and monitor for void. Bladder scan as needed. Okay to resume anticoagulation from standpoint. Will defer to primary team . Continue supportive care and antibiotics. Will arrange outpatient follow-up with our service. Urology will follow along. Admission and Anticipated Discharge Date Admission Date: May 28, 2023 Subjective Patient examined at bedside this AM. Awake, resting in bed on arrival. No acute distress. Denies any pain or discomfort at present. Denies fever, chills, nausea, vomiting. Rasheed intact, draining clear urine. Urine output overnight -450ml. Review of Systems Constitutional: as per Subjective / HPI Genitourinary: + as per Subjective / HPI Physical Exam Constitutional: no acute distress Respiratory: normal respiratory effort; no respiratory distress and no labored breathing Gastrointestinal (Abdomen): Percussion/Palpation: abdomen soft; abdomen nontender Neurologic: moves all extremities and awake Psychiatric: Orientation: alert and cooperative Genitourinary: Rasheed intact Results & Data Vital Signs (Past 12 Hours) Vital Signs Temp Pulse Resp BP Pulse Ox O2 Del Method 05/31/23 07:02 36.7 C 85 16 108/67 92 Room Air 05/30/23 20:34 37.2 C 80 15 99/58 L 92 Room Air PG Care Time/CCT Total # of Minutes Spent Total Time Spent with Patient: Total time spent is greater than 50% in coordination of care (as documented) at patient's floor/unit and/or counseling patient: Coding Level of Care Code 41482 SUB INP/OBS CARE MIN Diagnoses Hematuria R31.9 BPH (benign prostatic hyperplasia) N40.0 Complicated urinary tract infection N39.0
[2023-05-31] MEDS: glipiZIDE 5 MG TAB PO ONE (10:31)
--- NOTE | 2023-05-31 11:21 | Discharge Summary ---
Date of Service May 31, 2023 Admission HPI Per Admitting Provider Alcides is an 82M w/ PMH of BPH w/ LUTS, CKD3b, nephrolithiasis, recurrent UTIs (prior Pseudomonas), DMII, GERD, CAD, HTN, and bilateral hearing loss who presented to the hospital for evaluation of hematuria. Patient notes that he recently had a urinary/prostate infection w/ associated hematuria and was on antibiotics. While on the antibiotic, his hematuria ceased. He finished the antibiotic , and by Monday, the hematuria had returned. Patient notes that he has a burning discomfort at the end of his penis w/o erythema or purulence. In addition, he notes that he has been having pressure/discomfort at his rectum and low back. He notes that normally increasing his PO hydration improves his symptoms, but this time it was unsuccessful. Over the weekend, he had been passing clots in his urine but all were small, this evening he went to urinate and noted a significant amount of blood and large clots, thus he presented to the ER. Patient notes that his most recent clots have come out with very high pressure and are the size of his pinky finger. He denies abdominal pain, fevers, chills, nausea, or emesis. He notes chronic sinus congestion but no other respiratory symptoms. He denies chest pain , dyspnea, or LE edema. Principal Diagnosis Gross hematuria, suspected Pseudomonas UTI Discharge Exam General-alert and oriented x3, no fever, no chills HEENT-head atraumatic and normocephalic, pupils equal and reactive to light, extraocular muscles intact Neck-no lymphadenopathy or thyromegaly, trachea midline Chest-clear to auscultation. No rales, wheezing or rhonchi Cardiac-regular rate and rhythm, normal S1 and S2 Abdomen-normal bowel sounds, nontender, no hepatosplenomegaly GUFoley catheter in place with continuous bladder irrigation. Urine is tea colored without gross hematuria Extremities-no cyanosis, clubbing, or edema Neuro-cranial nerves II through XII intact, motor and sensory function within normal limits, strength symmetrical, no focal deficits Psych-normal affect, normal mood Discharge Data Allergies Allergy/AdvReac Type Severity Reaction Status Date / Time bee venom protein (honey bee) Allergy Intermediate Throat/Tongue/Eye Verified 05/28/23 01:25 Swelling Iodinated Contrast Media Allergy Intermediate Itching/welts Verified 05/28/23 01:25 on abdomen Consultations 05/28/23 02:19 ED Decision to Admit Stat 05/28/23 05:13 Consult Urology Routine Ordered Studies 05/28/23 00:45 CT Abd and Pelvis [CT abd pelvis wo con] Stat Hospital Course (1) Hematuria: Gross hematuria continues to resolve. Urine is now tea colored. Hemoglobin is stable. Will remove Rasheed catheter today, May 30, and discontinue continuous bladder irrigation. If he is able to void after the catheter is removed, he can go home today, May 30. He is now on oral ciprofloxacin. (2) Complicated urinary tract infection: Urine culture is growing 3 organisms and negative for UTI. Zosyn has been discontinued. He is now on oral ciprofloxacin (3) Coronary artery disease: Stable. Continue current medical management (4) Diabetes mellitus type II, controlled: ADA diet. Metformin was held on admission and restarted on May 29. Sliding scale coverage as needed (5) Hypertension: Stable. Continue current medical management (6) Stage 3b chronic kidney disease: Stable. Monitor intake and output. Serial labs Plan Hopefully home today, May 30, if he is able to void after removal of the Rasheed catheter Total Time Total Time Spent Total Time Spent (In Minutes): 45 minutes Discharge Plan Discharge Items Patient Disposition: Home - Self-Care Reason For Visit: HEMATURIA Discharge Diagnosis: Gross hematuria, suspected Pseudomonas UTI Activity: Resume your previous activity Non-emergency contact: Primary Care Provider and Urologist Call non-emergency contact if: your symptoms worsen Follow-up/Referrals: Aishwarya Weathers CRNP [Primary Care Provider] - 06/02/23 10:05 am (WITH JANET MCKEON) Diet: Carb Consistent or DM2 Addtl Attending Provider Instructions: Follow-up with primary care provider and urology as directed. Take ciprofloxacin antibiotic for 1 week. A prescription has been sent to [facility] Pending Studies at Discharge: No Stand-Alone Forms: My [employer], Smoking Cessation Medications and DC Order Prescriptions: New ciprofloxacin HCl 500 mg Tablet 500 mg PO BID Qty: 10 0RF Continued mecobalamin (vitamin B12) 1,000 mcg tablet,chewable 1,000 mcg PO QAM cholecalciferol (vitamin D3) 1,000 unit capsule 1,000 units PO QPM famotidine [Pepcid] 20 mg tablet 20 mg PO QPM multivitamin [Daily Multi-Vitamin] Tablet 1 tab PO QAM lisinopril 10 mg Tablet 10 mg PO QPM metformin 750 mg Tablet Extended Release 24 Hr 750 mg PO BID magnesium oxide 400 mg magnesium Tablet 400 mg PO DAILY atorvastatin [Lipitor] 20 mg Tablet 20 mg PO HS nitroglycerin [Nitrostat] 0.4 mg Tablet, Sublingual 1 tab Sublingual UD PRN (Reason: Pain) aspirin [Safia Low Dose Aspirin] 81 mg tablet,delayed release (DR/EC) 81 mg PO HS [id number] oil-vit D3 [Fish Oil-Vit D3] 300-1,000-1,000 mg-mg-unit Capsule 1 cap PO HS metoprolol tartrate 25 mg tablet 12.5 mg PO BID glipizide 5 mg tablet extended release 24hr 5 mg PO QAM omeprazole 20 mg capsule,delayed release(DR/EC) 20 mg PO QPM clopidogrel 75 mg tablet 75 mg PO DAILY gabapentin 100 mg capsule 100 mg PO TID Discharge Orders: Discharge Order (Routine); Ordered 05/31/23 Ordered By: Liang Guzman/Other Patient Handouts: Managing Type 2 Diabetes Admission Data Admit Date/Time: 05/28/23 03:48 Attending Provider: Liang Boles Admit Provider: Valentina Priest Primary Care Provider: Aishwarya Weathers Other Providers: Jovani Pairs; Fuentes Ambrose; Romero Cochran; Julien Zapata; Cece Horton; Matt Eddy; Gabrielle Zelaya; Teresa Rodriguez; Steven Ramirez; Latesha Carter; Zaire Headley; Lane Goel; Zelalem Vega Coding Level of Care Code 54928 INP/OBS DISCH >30 MIN Diagnoses Hematuria R31.9 Complicated urinary tract infection N39.0 Coronary artery disease I25.10 Diabetes mellitus type II, controlled E11.9 Hypertension I10 Stage 3b chronic kidney disease N18.32
[2023-05-31] MEDS: CIPROFLOXACIN 500 MG TAB PO STA (12:32)
[2023-05-31] MEDS ORDERED: CIPROFLOXACIN 500 MG TAB PO SCH (21:00)
== END 2023-05-31 14:49 | disposition home or self-care (01) | DRG 690 ==
LOC: ED 00:08 → SUATTDRO 03:48 → 3W 03:48
DX: I25.10 Atherosclerotic heart disease of native coronary artery without angina pectoris; Z79.84 Long term (current) use of oral hypoglycemic drugs; B96.5 Pseudomonas (aeruginosa) (mallei) (pseudomallei) as the cause of diseases classified elsewhere; I12.9 Hypertensive chronic kidney disease with stage 1 through stage 4 chronic kidney disease, or unspecified chronic kidney disease; Z91.041 Radiographic dye allergy status; N40.1 Benign prostatic hyperplasia with lower urinary tract symptoms; Z79.02 Long term (current) use of antithrombotics/antiplatelets; Z87.891 Personal history of nicotine dependence; N39.0 Urinary tract infection, site not specified; Z90.79 Acquired absence of other genital organ(s); Z79.899 Other long term (current) drug therapy; Z79.82 Long term (current) use of aspirin; Z95.5 Presence of coronary angioplasty implant and graft; R31.0 Gross hematuria; I25.2 Old myocardial infarction; N18.32 Chronic kidney disease, stage 3b; K21.9 Gastro-esophageal reflux disease without esophagitis; Z87.440 Personal history of urinary (tract) infections; E11.22 Type 2 diabetes mellitus with diabetic chronic kidney disease; H91.93 Unspecified hearing loss, bilateral

== ENCOUNTER 2024-12-23 20:07 | Observation (INO) ==
[2024-12-23 21:23] LABS: Alanine Aminotransferase 11.0 U/L (7-52); Albumin Globulin Ratio 1.3 (0.9-2); Albumin Level 4.1 gm/dl (3.4-5.0); Alkaline Phosphatase 59.0 U/L (34-104); Anion Gap 8.0 (3-11); Bilirubin,Total 0.7 mg/dl (0.2-1.0); Blood Urea Nitrogen 27.0 mg/dl (6-23); Calcium 9.5 mg/dl (8.6-10.3); Carbon Dioxide 27.0 mmol/L (21-32); Chloride 108.0 mmol/L (98-107); Creatinine Clr Calc Pharmacy 28.3 ml/min; Globulin 3.1 gm/dl (2.5-4.0); Glucose 139.0 mg/dl (70-99(Fasting)); Potassium 4.4 mmol/L (3.5-5.1); Sodium 143.0 mmol/L (136-145); Total Protein 7.2 gm/dl (6.0-8.3)
[2024-12-23 21:38] LABS: Hematocrit (blood only) 34.1 % (42.0-52.0); Hemoglobin 11.8 g/dl (14.0-18.0); Immature Granulocytes # (auto) 0.02 K/uL (0.01-0.20); Immature Granulocytes % (auto) 0.3 %; Mean Corpuscular Hemoglobin 31.6 pg (25.0-34.0); Mean Corpuscular Volume 91.2 fL (80.0-100.0); Platelet Count 185 K/uL (130-400); RDW Standard Deviation 42.7 fL (36.4-46.3); Red Blood Count 3.74 M/uL (4.70-6.10); White Blood Count 7.85 K/ul (4.8-10.8)
[2024-12-23 21:43] LABS: INR 1.0 (0.9-1.1); Partial Thromboplastin Time 26 Seconds (21-31); Prothrombin Time 11.0 Seconds (9.0-12.0)
--- NOTE | 2024-12-23 22:25 | Emergency Department Note ---
History of Present Illness General Chief complaint: GI Bleed Stated complaint: GI BLEED PAST HALF HOUR Time Seen by Provider: 12/23/24 21:24 History of Present Illness 84 y/o M w/ PMH anemia of chronic disease, CAD s/p IN 2013 s/p PCTA with WILLIE placement in 2012, 2013, and 2015, TIA on 05/03/2023 and supposedly in 2022, HLD, HTN, DM2 with neuropathy, osteoarthritis, BPH s/p TURP, GERD, HTN on Plavix presents to the ER for rectal bleeding. Patient states he had a bowel movement and then he felt like he had to go again and was just straight bright red blood. Some minimal lower abdominal cramping. Colonoscopy in the past showed some benign polyps. Patient denies chest pain, dyspnea, fever, chills. Home Medications Medication Instructions Recorded Confirmed Type metformin 750 mg tablet,extended 750 mg PO BID 02/23/18 12/24/24 History release 24 hr nitroglycerin 0.4 mg sublingual 1 tab sublingual UD PRN Pain 02/23/18 12/24/24 History tablet (Nitrostat) cholecalciferol (vitamin D3) 25 1,000 units PO QPM 10/12/18 12/24/24 History mcg (1,000 unit) capsule mecobalamin (vitamin B12) 1,000 1,000 mcg PO QAM 05/13/19 12/24/24 History mcg chewable tablet multivitamin (Daily Multi-Vitamin 1 tab PO QAM 05/19/20 12/24/24 History tablet) metoprolol tartrate 25 mg tablet 12.5 mg PO BID 10/26/20 12/24/24 History glipizide 5 mg tablet, extended 5 mg PO QAM 12/23/21 12/24/24 History release 24 hr clopidogrel 75 mg tablet 75 mg PO QAM 05/03/23 12/24/24 History gabapentin 100 mg capsule 100 mg PO TID 05/03/23 12/24/24 History clotrimazole 1 % topical solution 1 applic topical BID 8 weeks #30 mL 11/27/23 12/24/24 Rx famotidine 20 mg tablet (Pepcid) 20 mg PO BID 08/29/24 12/24/24 History atorvastatin 10 mg tablet 10 mg PO HS 90 days #90 tabs 10/24/24 12/24/24 Rx lisinopril 10 mg tablet 10 mg PO QPM #90 tabs 10/30/24 12/24/24 Rx Allergies Allergy/AdvReac Type Severity Reaction Status Date / Time bee venom protein (honey bee) Allergy Severe Throat/Tongue/Eye Verified 12/02/24 11:40 Swelling Iodinated Contrast Media Allergy Intermediate Itching/welts Verified 12/02/24 11:40 on abdomen Past Med/Surg History Problem List (Updated 12/24/24 @ 00:05 by Doris Brown PA-C) Anemia (Acute) Painless rectal bleeding (Acute) Diabetic peripheral neuropathy Anemia of chronic disease Stage 3b chronic kidney disease Baseline creatinine 1.5-1.6 per chart review Otomycosis of right ear Hematuria (Acute) Coronary artery disease 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 Right inguinal hernia Gross hematuria (Acute) Bilateral hearing loss (Chronic) Enlarged prostate with lower urinary tract symptoms (LUTS) (Chronic) DVT prophylaxis Nephrolithiasis (Chronic) hx Medical History COVID-19 Complicated urinary tract infection TIA (transient ischemic attack) Recurrent UTI Ascending aorta dilation History of TIA (transient ischemic attack) BPH (benign prostatic hyperplasia) Hypertension Primary osteoarthritis, right shoulder Anemia CAD (coronary artery disease) Obesity Osteoarthritis Kidney stones GERD (gastroesophageal reflux disease) Diabetes mellitus, type 2 Myocardial Infarction Hyperlipidemia Surgical History 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 arthroplasty H/O right inguinal hernia repair (03/25/21) History of total shoulder replacement H/O colonoscopy Previous back surgery Hx of transurethral resection of prostate History of cholecystectomy History of total hip arthroplasty H/O cystoscopy History of cardiac cath Family History Mother Family hx of colon cancer Other Heart disease No family history of adverse response to anesthesia Social History Smoking Status: Never smoker Tobacco Type: Cigarettes Age Started Using Tobacco: 12; Age Quit Using Tobacco: 25; packs per day: 0; Second Hand Exposure: No; Do You Dip or Chew Tobacco: No; Hx Alcohol Use: No Hx Substance Use: No Preferred Language: Azeri Communication Ability: Effective Visual Impairment: No Limitations Hearing Ability: Use of Hearing Aid Property Insurance 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 Required: No Beliefs That Will Affect Care: None marital status: Current Living Situation: Spouse current occupational status: retired How many Children do You have: 4 Feels Safe at Home: Yes Childhood Exposure to Second-Hand Smoke: Yes Diet: regular caffeine: Yes during the past year weight has: remained stable Dental Care, Regularly: No Physical Activity Frequency: Does not Exercise Seatbelt Use: always Sunscreen Use: No Assistive Devices: Denture - Upper, Denture - Lower, Glasses and Hearing Aid - Bilateral Review of Systems A total of 10 systems reviewed and were otherwise negative Physical Exam Vital Signs Vital Signs - 24 hr 12/23/24 20:41 12/23/24 22:16 12/23/24 22:31 Temperature 36.8 C Temperature Source Oral Pulse Rate 107 H 78 Pulse Rate [Apical] 81 Pulse Rhythm [Apical] Regular Respiratory Rate 18 24 Respiratory Effort / Characteristics Non-Labored Spontaneous Respiratory Depth Normal Respiratory Pattern Regular Blood Pressure [Left Arm] 118/74 Blood Pressure Mean [Left Arm] 88 Blood Pressure Position Sitting Pulse Oximetry 92 95 Oxygen Delivery Method Room Air Sepsis Recent Fever Within 48 Hours No Sepsis New/Unexplained Change in Mental Status No Sepsis Action Taken by Nursing No Action Required VITALS: Vitals are noted on the nurse's note and reviewed by myself. Vital signs stable. GENERAL: Pleasant male hard of hearing with present, in no acute distress, nondiaphoretic, well-developed well-nourished. SKIN: Capillary reflex less than 2 seconds. HEENT: Normocephalic. PERRLA. EOMI. Nares patent. Mucous membranes moist. Neck is supple without nuchal rigidity. HEART: Regular rate and rhythm LUNGS: Clear to auscultation bilaterally without wheezes, rales or rhonchi. No retractions or accessory muscle use. ABDOMEN: Positive bowel sounds x 4. Normal tympanic percussion. Soft, minimal lower abdominal tenderness, without masses or organomegaly. Armstrong sign negative. No guarding or rebound tenderness. no CVA tenderness Rectal exam: No fissures or tears. present. No obvious source of bleeding. MUSCULOSKELETAL: No gross musculoskeletal defects. NEURO: Patient was alert and oriented to person place and time. No focal neurological deficits. Course Administered Medications Discontinued Medications Pantoprazole Sodium 80 mg/ (Dextrose) 120 mls @ 480 mls/hr IV ONE STA Stop: 12/23/24 22:07 Last Infusion: 12/23/24 23:10 Dose: Infused Documented By: Admin: 12/23/24 22:51 Dose: 480 mls/hr Documented By: ALEJANDRA Famotidine (Pepcid 20mg Iv Push) 20 mg in 5 mls @ 2.5 mls/min IV NOW STA Stop: 12/23/24 21:54 Last Admin: 12/23/24 22:48 Dose: 2.5 mls/min Documented By: ALEJANDRA Medical Decision Making Medical Records Attestation: I reviewed the patient's medical records. Home Medications Current Medication List: was personally reviewed by me Laboratory Data Attestation: I reviewed the patient's lab results. 12/23/24 20:48 12/23/24 20:48 Lab Results 12/23/24 12/23/24 Range/Units 00:09 20:48 WBC 7.85 (4.8-10.8) K/ul RBC 3.74 L (4.70-6.10) M/uL Hgb 10.5 L 11.8 L (14.0-18.0) g/dl Hct 30.8 L 34.1 L (42.0-52.0) % MCV 91.2 (80.0-100.0) fL MCH 31.6 (25.0-34.0) pg MCHC 34.6 (32.0-36.0) g/dL RDW Std Deviation 42.7 (36.4-46.3) fL RDW Coeff of Raymond 13.1 (11.5-14.5) % Plt Count 185 (130-400) K/uL MPV 9.5 (9.4-12.4) fL Immature Gran % (Auto) 0.3 % Neut % (Auto) 54.7 % Lymph % (Auto) 32.4 % [place] % (Auto) 10.4 % Eos % (Auto) 1.7 % Baso % (Auto) 0.5 % Neut # (Auto) 4.30 (1.40-6.50) K/uL Lymph # (Auto) 2.54 (1.20-3.40) K/uL [place] # (Auto) 0.82 H (0.11-0.59) K/uL Eos # (Auto) 0.13 (0.00-0.50) K/uL Baso # (Auto) 0.04 (0.00-0.20) K/uL Immature Gran # (Auto) 0.02 (0.01-0.20) K/uL PT 11.0 (9.0-12.0) Seconds INR 1.0 (0.9-1.1) APTT 26 (21-31) Seconds PTT Ratio 1.0 Sodium 143 (136-145) mmol/L Potassium 4.4 (3.5-5.1) mmol/L Chloride 108 H (98-107) mmol/L Carbon Dioxide 27 (21-32) mmol/L Anion Gap 8 (3-11) BUN 27 H (6-23) mg/dl Creatinine 2.08 H (0.6-1.4) mg/dl Est Cr Clr Drug Dosing 28.3 ml/min eGFR 30.82 BUN/Creatinine Ratio 13.0 (10-20) Glucose 139 H (70-99(Fasting)) mg/dl Calcium 9.5 (8.6-10.3) mg/dl Total Bilirubin 0.7 (0.2-1.0) mg/dl AST 12 L (13-39) U/L ALT 11 (7-52) U/L Alkaline Phosphatase 59 (34-104) U/L Troponin I High Sens 4.5 (0-20) pg/ml Total Protein 7.2 (6.0-8.3) gm/dl Albumin 4.1 (3.4-5.0) gm/dl Globulin 3.1 (2.5-4.0) gm/dl Albumin/Globulin Ratio 1.3 (0.9-2) Imaging Data Attestation: I personally reviewed and interpreted this imaging study as follows: Radiologist's Impression: Abdomen/Pelvis CT 12/23/24 21:53 Exam(s): CT ABDOMEN + PELVIS Without Contrast EXAM: CT Abdomen and Pelvis Without Intravenous Contrast CLINICAL HISTORY: Reason for exam: gi bleed. TECHNIQUE: Axial computed tomography images of the abdomen and pelvis without intravenous contrast. CTDI is 25.61 mGy and DLP is 1333.78 mGy-cm. Automated exposure control was utilized for the study. A dose lowering technique was utilized adhering to the principles of ALARA. COMPARISON: May 28, 2023 FINDINGS: ABDOMEN: Liver: Unremarkable. Gallbladder and bile ducts: Unremarkable. No calcified stones. No ductal dilation. Pancreas: Unremarkable. No ductal dilation. Spleen: Unremarkable. No splenomegaly. Adrenals: Unremarkable. No mass. Kidneys and ureters: Unremarkable. No obstructing stones. No hydronephrosis. Stomach and bowel: Diverticulosis without diverticulitis. No obstruction. PELVIS: Appendix: No findings to suggest acute appendicitis. Bladder: Unremarkable. No stones. ABDOMEN and PELVIS: Intraperitoneal space: Unremarkable. No free air. No significant fluid collection. Bones/joints: No acute findings. Soft tissues: Unremarkable. Vasculature: Unremarkable. No abdominal aortic aneurysm. Lymph nodes: Unremarkable. No enlarged lymph nodes. IMPRESSION: No acute findings in the abdomen or pelvis. Electronically signed by: Liang Garner MD 12/23/24 23:50 PM [facility] Narrative Prior records/ancillary studies reviewed. Triage Nursing notes reviewed. Additional history obtained from the family. The patient's history was concerning for possible gastrointestinal bleeding. Differential diagnosis: Etiologies such as diverticulosis, AVM, coagulopathy, colitis, inflammatory bowel disease, malignancy, Meghana-Bloom tear, esophagitis, peptic ulcer disease, variceal bleed, gastritis, epistaxis, fissure, hemorrhoids, as well as others were entertained. Physical exam: As above. The patients vital signs were stable. ER treatment provided: An order was placed for continuous cardiac monitoring. The monitor shows a rate of 60-100 with a sinus rhythm per my interpretation. Protonix and Pepcid were ordered On reassessment the patient felt better. Diagnostics interpreted by me: ECG: Ordered for rectal bleeding EKG: Normal sinus, right bundle branch block, Q waves in the inferior leads, poor baseline, rate of 104. Impression sinus tachycardia right bundle branch block independently interpreted by myself The labs Independently Interpreted by myself revealed mild anemia, stable creatinine per chart review Repeat H&H was ordered and is 1 point lower Type and screen was ordered Imaging studies: Imaging was reviewed and read by radiology Consultation: A consultation was placed with the hospitalist. The case was discussed and diagnostics were reviewed. The patient was evaluated in the ER for further treatment. This appears to be consistent with rectal bleeding most likely hemorrhoidal. H&H showed a mild anemia. Repeat was ordered. Patient is on Plavix. He was feeling weak. Medicine was consulted and the case was discussed. He will be evaluated for admission. Patient is agreeable to treatment plan of admission.. By the evaluation outlined above emergent etiologies such as esophageal perforation, peptic ulcer disease, variceal bleed, coagulopathy, gastritis, epistaxis, inflammatory bowel disease, as well as others were deemed relatively unlikely. The pt informed about the findings as listed above. All questions were answered and pleased with the treatment. The chart was completed utilizing [employer] Speech voice recognition software. Grammatical errors, random word insertions, pronoun errors, and incomplete sentences are an occassional consequence of this system due to software limitations, ambient noise, and hardware issues. Any formal questions or concerns about the content, text, or information contained within the body of this dictation should be directly addressed to the physician corporate law assistant for clarification. Impression & Plan Painless rectal bleeding, Anemia Discharge Plan Visit Data Chief Complaint: GI Bleed Stated Complaint: GI BLEED PAST HALF HOUR ED Provider: Eliseo Johnson ED Midlevel Provider: Doris Brown Discharge Problem: Painless rectal bleeding, Anemia Patient Disposition: Admitted As Inpatient Condition: Good Forms Stand Alone Forms: My [facility] [facility] Prescriptions Prescriptions: No Action atorvastatin 10 mg tablet 10 mg PO HS 90 Days Qty: 90 3RF lisinopril 10 mg tablet 10 mg PO QPM Qty: 90 3RF mecobalamin (vitamin B12) 1,000 mcg tablet,chewable 1,000 mcg PO QAM cholecalciferol (vitamin D3) 1,000 unit capsule 1,000 units PO QPM multivitamin [Daily Multi-Vitamin] Tablet 1 tab PO QAM famotidine [Pepcid] 20 mg tablet 20 mg PO BID clotrimazole 1 % solution 1 applic topical BID 56 Days Qty: 30 0RF Rx Instructions: Apply to right ear canal metformin 750 mg Tablet Extended Release 24 Hr 750 mg PO BID nitroglycerin [Nitrostat] 0.4 mg Tablet, Sublingual 1 tab Sublingual UD PRN (Reason: Pain) metoprolol tartrate 25 mg tablet 12.5 mg PO BID glipizide 5 mg tablet extended release 24hr 5 mg PO QAM clopidogrel 75 mg tablet 75 mg PO QAM Hold Instructions: Resume on 07/28/23. gabapentin 100 mg capsule 100 mg PO TID Patient Comments: May wean down to twice daily x 1-2 weeks, then once daily. May wean off after 1-2 weeks. Referrals Referrals: Maciel German, [Primary Care Provider] -
--- NOTE | 2024-12-23 22:25 | Emergency Department Note ---
ED Visit Note I was consulted by the Advanced Practice Provider. I personally made or approved the management plan for the patient. I performed a substantive portion of the visit. This includes the aspects of: MDM. .
[2024-12-23] MEDS: FAMOTIDINE 20MG IV PUSH 20 MG/5 ML SYR IV STA (22:48)
--- NOTE | 2024-12-23 23:51 | CT Scan Report ---
Exam(s): CT ABDOMEN + PELVIS Without Contrast EXAM: CT Abdomen and Pelvis Without Intravenous Contrast CLINICAL HISTORY: Reason for exam: gi bleed. TECHNIQUE: Axial computed tomography images of the abdomen and pelvis without intravenous contrast. CTDI is 25.61 mGy and DLP is 1333.78 mGy-cm. Automated exposure control was utilized for the study. A dose lowering technique was utilized adhering to the principles of ALARA. COMPARISON: May 28, 2023 FINDINGS: ABDOMEN: Liver: Unremarkable. Gallbladder and bile ducts: Unremarkable. No calcified stones. No ductal dilation. Pancreas: Unremarkable. No ductal dilation. Spleen: Unremarkable. No splenomegaly. Adrenals: Unremarkable. No mass. Kidneys and ureters: Unremarkable. No obstructing stones. No hydronephrosis. Stomach and bowel: Diverticulosis without diverticulitis. No obstruction. PELVIS: Appendix: No findings to suggest acute appendicitis. Bladder: Unremarkable. No stones. ABDOMEN and PELVIS: Intraperitoneal space: Unremarkable. No free air. No significant fluid collection. Bones/joints: No acute findings. Soft tissues: Unremarkable. Vasculature: Unremarkable. No abdominal aortic aneurysm. Lymph nodes: Unremarkable. No enlarged lymph nodes. IMPRESSION: No acute findings in the abdomen or pelvis. Electronically signed by: Liang Garner MD 12/23/24 23:50 PM
[2024-12-24 00:22] LABS: Hematocrit (blood only) 30.8 % (42.0-52.0); Hemoglobin 10.5 g/dl (14.0-18.0)
[2024-12-24 00:30] LABS: Magnesium 1.7 mg/dl (1.7-2.4)
--- NOTE | 2024-12-24 00:32 | History & Physical Report ---
Date of Service December 24, 2024 Assessment & Plan (1) GAIL (acute kidney injury): (2) Painless rectal bleeding: (3) Anemia: Plan 84-year-old male PMHx CAD, T2DM, GERD, HLD, HTN, BPH, CKD stage IIIb, BPH with LUTS, recurrent UTIs, and bilateral hearing loss presenting for blood in his toilet night of arrival. Evaluation significant for mild anemia 11.8/34.1, normal PT/INR. BUN is slightly bumped at 24, but with creatinine of 2.09 which is up from his baseline. CTAP is without acute findings. Admission for GAIL as well as further workup of GI bleed. 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 Hemodynamically stable. Is on Plavix at baseline but currently on hold. H/H near baseline, but is slightly decreased, also in setting of CKD. In setting of slight change of H/H and pa inless rectal bleeding, minimally elevated BUN, suspect this to be more customer sales representative of hemorrhoids vs emergent condition. Will consult GI for any recommendations given however. Admission for further management. - H/H on admission 11.8/34.1, BUN 27, Cr 2.08 - CBC, BMP am - Iron panel pending AM - NPO - Received pantoprazole 80 mg IV + famotidine 20mg IV in ED -- continue home dosing in IV route, add pantoprazole 40mg IV BID -- d/c once UGI can completely be r/o - GI consulted - appreciate input + recs #T2DM H/o DMT2; At home regimen includes glipizide, metformin, and gabapentin for neuropathy. - Glucose on admission 139; most recent A1C 11/2024 @ 5.2% - Hold home regimen except gabapentin (once diet ordered, currently NPO) - SSI with target BSG range 110-140mg/dL, CF 25, carb ratio 10 - BSG q6h while NPO - Adjust regimen as needed #GERD- Famotidine - continue in IV formulation #HLD- Atorvastatin - continue once no longer NPO #HTN- Metoprolol, lisinopril - continue once no longer NPO #CAD s/p stent- Plavix (documented as on hold but pt states he is taking this) - hold at time of admission Pt is incredibly SHISHMAREF IRA and without hearing aids at time of admission. He prefers to have a pen and paper to have questions/information written to him. normally helps with communication if she is present. Dispo: Admit, med/tele VTE Prophylaxis: SCDs -- avoid chemical prophylaxis given bleeding history This document was dictated utilizing [employer]. Please excuse any grammatical errors that may be secondary to use of this software. Admission and Anticipated Discharge Date Admission Date: 12/24/2024 History of Present Illness Chief Complaint: GIB Primary Care Provider: Maciel German, 84-year-old male PMHx CAD, T2DM, GERD, HLD, HTN, BPH, CKD stage IIIb, BPH with LUTS, recurrent UTIs, and bilateral hearing loss presenting for blood in his toilet night of arrival. History is limited as the patient is incredibly hard of hearing and so communication on my part is only through writing with pen and paper. Patient states that on the night of arrival he had had a bowel movement which felt normal in nature, stating that it was light in color and normal size/consistency. He had completed this bowel movement and cleaned himself up but when he went to stand up and walk with the toilet, he had the urge that he had to have another bowel movement. He states at that time he had completed the bowel movement and then wiped himself and noticed that there was right red blood on the toilet paper. He then noticed bright red blood in the toilet bowl. He states that he has had this happen before and has been diagnosed with hemorrhoids in the past per his doctors report. He states that on prior colonoscopies nothing had been reported that was abnormal. He did not have any abdominal pain with the bowel movements or prior to them. He has no other symptoms. Also denies any dizziness/lightheadedness, chest pain, or shortness of breath. He does talk about how he has difficulties with his hearing, likely secondary to exposures in the past, and also has issues with cerumen. He is without chest pain, SOB, palpitations, abdominal pain, N/V/C, URI symptoms, fever/chills, LUTS, numbness/tingling, weakness, syncope, or falls. ED evaluation reveals CBC without leukocytosis or leukopenia, H&H 11.8/34.1; PT/INR WNL; CMP chloride 108, BUN 24, creatinine 2.09, glucose 139, AST 12; troponin 4.5, pending repeat; CTAP no acute findings.; Provided with pantoprazole 80 mg IV and famotidine 20 mg IV in ED. Please see Dr. Paris's attestation for adjustments/additions to treatment plan. Allergies Allergy/AdvReac Type Severity Reaction Status Date / Time bee venom protein (honey bee) Allergy Severe Throat/Tongue/Eye Verified 12/02/24 11:40 Swelling Iodinated Contrast Media Allergy Intermediate Itching/welts Verified 12/02/24 11:40 on abdomen Home Medications Medication Instructions Recorded Confirmed Type metformin 750 mg tablet,extended 750 mg PO BID 02/23/18 12/24/24 History release 24 hr nitroglycerin 0.4 mg sublingual 1 tab sublingual UD PRN Pain 02/23/18 12/24/24 History tablet (Nitrostat) cholecalciferol (vitamin D3) 25 1,000 units PO QPM 10/12/18 12/24/24 History mcg (1,000 unit) capsule mecobalamin (vitamin B12) 1,000 1,000 mcg PO QAM 05/13/19 12/24/24 History mcg chewable tablet multivitamin (Daily Multi-Vitamin 1 tab PO QAM 05/19/20 12/24/24 History tablet) metoprolol tartrate 25 mg tablet 12.5 mg PO BID 10/26/20 12/24/24 History glipizide 5 mg tablet, extended 5 mg PO QAM 12/23/21 12/24/24 History release 24 hr clopidogrel 75 mg tablet 75 mg PO QAM 05/03/23 12/24/24 History gabapentin 100 mg capsule 100 mg PO TID 05/03/23 12/24/24 History clotrimazole 1 % topical solution 1 applic topical BID 8 weeks #30 mL 11/27/23 12/24/24 Rx famotidine 20 mg tablet (Pepcid) 20 mg PO BID 08/29/24 12/24/24 History atorvastatin 10 mg tablet 10 mg PO HS 90 days #90 tabs 10/24/24 12/24/24 Rx lisinopril 10 mg tablet 10 mg PO QPM #90 tabs 10/30/24 12/24/24 Rx Past Med/Surg History Problem List (Updated 12/24/24 @ 14:05 by Adalberto Concepcion DO) Diabetes mellitus, type 2 NIDDM Hematochezia Diabetic peripheral neuropathy Anemia of chronic disease Stage 3b chronic kidney disease Baseline creatinine 1.5-1.6 per chart review Otomycosis of right ear Hematuria (Acute) Coronary artery disease 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 had a f/u virtual visit with [facility] Neu[facility]. also had a TIA Oct 2022 -> "did not last long, did not seek treatment at that time" BPH (benign prostatic hyperplasia) Hypertension Primary osteoarthritis, right shoulder Anemia Chronic, baseline hgb 11-12 range per chart review CAD (coronary artery disease) 2012= stent x1, 2013= stent x1, 2015= stents x3-F/UDR KIKI COSTELLO Obesity Osteoarthritis Kidney stones hx GERD (gastroesophageal reflux disease) Controlled Diabetes mellitus, type 2 NIDDM Myocardial Infarction ~2012 Hyperlipidemia Surgical History 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 arthroplasty H/O right inguinal hernia repair (03/25/21) Open Right Inguinal Hernia Repair with Mesh(Right) - Kye Beaulieu MD, FACS 03/25/2021 History of total shoulder replacement Right reverse TSA (03/23/18): Grade 2 view, MAC#4, ETT 7.5 + PNB at [facility]. No issues per post-op anesthesia progress note. H/O colonoscopy Previous back surgery + hardware Hx of transurethral resection of prostate multiple (last done 2021 at [facility]) History of cholecystectomy History of total hip arthroplasty Left H/O cystoscopy + stent/stone extraction History of cardiac cath 2012= stent x1, 2013= stent x1, 2015= stents x3 Family History Mother Family hx of colon cancer Other Heart disease No family history of adverse response to anesthesia Social History Smoking Status: Former smoker Tobacco Type: Cigarettes Age Started Using Tobacco: 12; Age Quit Using Tobacco: 25; packs per day: 0; Second Hand Exposure: No; Do You Dip or Chew Tobacco: No; Hx Alcohol Use: No Hx Substance Use: No Preferred Language: Danish Communication Ability: Impaired Visual Impairment: No Limitations Hearing Ability: Use of Hearing Aid Dining Room Server Required: No Beliefs That Will Affect Care: None marital status: Current Living Situation: Spouse current occupational status: retired How many Children do You have: 4 Feels Safe at Home: Yes Childhood Exposure to Second-Hand Smoke: Yes Diet: regular caffeine: Yes during the past year weight has: remained stable Dental Care, Regularly: No Physical Activity Frequency: Does not Exercise Seatbelt Use: always Sunscreen Use: No Assistive Devices: None Review of Systems Review of Systems: All systems reviewed & are unremarkable except as noted in Subjective Physical Exam Physical Exam: General: No acute distress Skin: Warm and dry Head: Normocephalic, atraumatic Eyes: PERRL, conjunctivae clear, sclera non-icteric ENT: External ear and ear canal without swelling, severely SHISHMAREF IRA; nose atraumatic; good dentition, tongue normal appearance, pharynx normal Neck: Supple, no LAD Cardio: RRR, no M/G/R, S1 and S2 normal Resp: No respiratory distress, Lungs CTA in all lobes bilaterally, no wheezes, rales, or rhonchi Abdomen: Soft, symmetric, nontender; No signs of peritonitis; No masses or hepatosplenomegaly; Bowel sounds normoactive MSK: No deformities; pulses palpable and equal; no edema. Neuro: Awake, alert; Sensation intact bilaterally; CN grossly intact Psych: Appropriate mood and affect; good judgement and insight. Results & Data Results & Data Vital Signs (Past 12 Hours) Vital Signs Temp Pulse Pulse Resp BP Pulse Ox O2 Del Method 12/23/24 22:31 78 12/23/24 22:16 81 24 118/74 95 12/23/24 20:41 36.8 C 107 H 18 92 Room Air Laboratory Results 12/23/24 12/23/24 12/23/24 23:46 20:48 00:09 WBC 7.85 RBC 3.74 L Hgb 11.8 L 10.5 L Hct 34.1 L 30.8 L MCV 91.2 MCH 31.6 MCHC 34.6 RDW Std Deviation 42.7 RDW Coeff of Raymond 13.1 Plt Count 185 MPV 9.5 Immature Gran % (Auto) 0.3 Neut % (Auto) 54.7 Lymph % (Auto) 32.4 [place] % (Auto) 10.4 Eos % (Auto) 1.7 Baso % (Auto) 0.5 Neut # (Auto) 4.30 Lymph # (Auto) 2.54 [place] # (Auto) 0.82 H Eos # (Auto) 0.13 Baso # (Auto) 0.04 Immature Gran # (Auto) 0.02 PT 11.0 INR 1.0 APTT 26 PTT Ratio 1.0 Sodium 143 Potassium 4.4 Chloride 108 H Carbon Dioxide 27 Anion Gap 8 BUN 27 H Creatinine 2.08 H Est Cr Clr Drug Dosing 28.3 eGFR 30.82 BUN/Creatinine Ratio 13.0 Glucose 139 H Calcium 9.5 Magnesium 1.7 Total Bilirubin 0.7 AST 12 L ALT 11 Alkaline Phosphatase 59 Troponin I High Sens 4.5 Total Protein 7.2 Albumin 4.1 Globulin 3.1 Albumin/Globulin Ratio 1.3 Diagnostic Findings Abdomen/Pelvis CT 12/23/24 21:53 Exam(s): CT ABDOMEN + PELVIS Without Contrast EXAM: CT Abdomen and Pelvis Without Intravenous Contrast CLINICAL HISTORY: Reason for exam: gi bleed. TECHNIQUE: Axial computed tomography images of the abdomen and pelvis without intravenous contrast. CTDI is 25.61 mGy and DLP is 1333.78 mGy-cm. Automated exposure control was utilized for the study. A dose lowering technique was utilized adhering to the principles of ALARA. COMPARISON: May 28, 2023 FINDINGS: ABDOMEN: Liver: Unremarkable. Gallbladder and bile ducts: Unremarkable. No calcified stones. No ductal dilation. Pancreas: Unremarkable. No ductal dilation. Spleen: Unremarkable. No splenomegaly. Adrenals: Unremarkable. No mass. Kidneys and ureters: Unremarkable. No obstructing stones. No hydronephrosis. Stomach and bowel: Diverticulosis without diverticulitis. No obstruction. PELVIS: Appendix: No findings to suggest acute appendicitis. Bladder: Unremarkable. No stones. ABDOMEN and PELVIS: Intraperitoneal space: Unremarkable. No free air. No significant fluid collection. Bones/joints: No acute findings. Soft tissues: Unremarkable. Vasculature: Unremarkable. No abdominal aortic aneurysm. Lymph nodes: Unremarkable. No enlarged lymph nodes. IMPRESSION: No acute findings in the abdomen or pelvis. Electronically signed by: Liang Garner MD 12/23/24 23:50 PM Medications Administered Pantoprazole 80 mg IV Famotidine 20 mg IV Code Status & VTE Plan Code Status Full Supervising Physician Co-Signing Physician Notes attending addendum: I have physically supervised the LA's activities, and agree with the H&P unless as otherwise noted. Assessment and Plan: The patient is an 84-year-old male with a past medical history including CAD, hypertension, GERD, hyperlipidemia, BPH with LUTS, CKD stage IIIb, recurrent UTIs, and bilateral hearing loss. He presents to the emergency department with report of blood in the toilet bowl earlier this evening. CT abdomen pelvis without acute findings. He has no report of abdominal or rectal pain. Hemoglobin on arrival is 11.8, with most recent 11.3. Creatinine has increased to 2.08. He will be [facility] to the [facility] for further evaluation and treatment. Painless rectal bleeding- Hemoglobin 11.8 on admission with most recent 11.3 H&H every 4 hours Hemoccult stools Type and screen N.p.o. except essential medications Status post pantoprazole 80 mg IV and famotidine 20 mg IV from the ED Pantoprazole 40 mg IV twice daily Consult gastroenterology Acute kidney injury superimposed on CKD- Creatinine 2.08 on admission, with base 1.69 Follow urine culture and sensitivity Bladder scan with postvoid residual LR at 80 mL/h Hold lisinopril Repeat laboratories in the a.m. CAD/status post stent minus hypertension- Resume metoprolol post GI procedure Hold Plavix until postprocedure and okayed by GI Hyperlipidemia- Resume atorvastatin postprocedure GERD- Continue famotidine as IV PG Care Time/CCT Total # of Minutes Spent Total Time Spent with Patient: Total time spent is greater than 50% in coordination of care (as documented) at patient's floor/unit and/or counseling patient: Coding Level of Care Code 20622 INT INP/OBS CARE MIN Diagnoses GAIL (acute kidney injury) N17.9 Painless rectal bleeding K62.5 Anemia D64.9
[2024-12-24] MEDS: LACTATED RINGER'S 1,000 ML IV SCH (02:31)
[2024-12-24] MEDS ORDERED: GLUCAGON FOR INJ 1 MG VIAL SQ PRN (03:10)
[2024-12-24] MEDS ORDERED: GLUCOSE 10 TAB/TUBE PO PRN (03:10)
[2024-12-24] MEDS ORDERED: ONDANSETRON INJ 2 MG/ML 2 ML VIAL IV PRN (03:10)
[2024-12-24] MEDS ORDERED: GLUCOSE 40% GEL 15 GM TUBE PO PRN (03:10)
[2024-12-24] MEDS ORDERED: CARBOHYDRATES FOR HYPOGLYCEMIA PO PRN (03:10)
[2024-12-24] MEDS ORDERED: DEXTROSE 50% 50 ML SYRINGE IV PRN (03:10)
[2024-12-24] MEDS ORDERED: POLYETHYLENE (MIRALAX) 17 GM PACK PO PRN (03:10)
[2024-12-24] MEDS ORDERED: ACETAMINOPHEN 325 MG TAB PO PRN (03:10)
[2024-12-24] MEDS ORDERED: FAMOTIDINE 20MG IV PUSH 20 MG/5 ML SYR IV STA (03:15)
[2024-12-24 03:22] LABS: Appearance Urine Clear (Clear); Bacteria Urine Automated None Seen (None Seen); Cast Urine Automated 0-2 /lpf (0-2); Epithelial Cell Urine Auto 0-2 /hpf (0-2); Glucose Urine UA Negative (Negative); RBC Urine Automated 0-2 /hpf (0-2); WBC Urine Automated 0-5 /hpf (0-5)
[2024-12-24 07:37] LABS: Anion Gap 10.0 (3-11); Calcium 8.9 mg/dl (8.6-10.3); Carbon Dioxide 21.0 mmol/L (21-32); Chloride 113.0 mmol/L (98-107); Ferritin 42.2 ng/ml (8-388); Potassium 4.4 mmol/L (3.5-5.1); Sodium 144.0 mmol/L (136-145)
--- NOTE | 2024-12-24 07:41 | Hospitalist Progress Note ---
Date of Service December 24, 2024 Assessment & Plan (1) Hematochezia: (2) Anemia of chronic disease: (3) Stage 3b chronic kidney disease: (4) Diabetes mellitus, type 2: Plan In summary this is an 84-year-old male who is admitted for hematochezia #Hematochezia // Anemia of chronic disease (CKD) With respect to the patient's presenting suspected gastrointestinal bleed, this does sound primarily lower gastrointestinal source; evaluated by gastroenterology on 12/24 and they anticipate to undergo colonoscopy on 12/25 Continue to hold anticoagulation and antiplatelet agents At this time with the patient's stable hemoglobin measured within the first 24 hours of admission, no indication for continued trend Follow daily hemoglobin and hematocrit as well as coagulation panel Continue pantoprazole 40 mg IV twice daily Gastroenterology consulted #Acute kidney injury superimposed on CKD stage III Baseline creatinine in the range of 1.5-1.7, presenting creatinine of 2.08; currently nonoliguric without recent hypotensive.; No notable electrolyte nor acid-base derangements; suspect this is prerenal in etiology -Nurse to notify attending of UOP below goal of 0.5 mL/kg/hour -Follow daily RFP -Continue maintenance IVF while NPO #Type II diabetes mellitus, well controlled Most recent hemoglobin A1c of 5.2%; considering patient's age, and comorbidities would recommend discontinuation of glipizide at the time of discharge to minimize the potential risk of hypoglycemic episodes and who is a very well- controlled diabetic; the recommended goal hemoglobin A1c in diabetic patients over the age of 75 is less than 8%, which the patient is well within Admission and Anticipated Discharge Date Admission Date: December 24, 2024 Subjective Mr. Mcgovern is a an 84-year-old male whose active medical conditions include stage IIIb CKD, anemia of chronic disease, coronary atherosclerotic disease, BPH with LUTS among other chronic medical conditions who [facility] due to large volume hematochezia. The patient has not had any additional bowel movements while hospitalized; this morning they have no acute complaints or concerns Review of Systems Review of Systems: Review of cardiovascular, pulmonary, constitutional, gastrointestinal systems was unremarkable except for pertinent positive and negative findings discussed above Physical Exam Physical Exam: General: Elderly male in no acute distress Vital Signs: Reviewed HEENT: No notable conjunctival pallor; pupils equally round and reactive to light; extraocular motion intact Pulmonary: Symmetric chest wall excursion without restriction Cardiovascular: Regular rate and rhythm without murmurs, rubs, or gallops; S1 and S2 normal; right radial pulse 2+, brisk capillary refill Gastrointestinal: Soft, nondistended; no tenderness elicited with the palpation throughout the entire abdomen; normal bowel sounds both with respect to frequency and pitch throughout Results & Data Results & Data Vital Signs (Past 12 Hours) Vital Signs Temp Pulse Pulse Resp BP BP Pulse Ox 12/24/24 07:15 36.6 C 61 18 110/62 97 12/24/24 06:00 55 L 16 110/62 96 12/24/24 03:36 57 L 17 135/80 97 12/24/24 03:36 12/24/24 02:36 59 L 23 96 12/24/24 02:26 62 12/24/24 02:12 60 26 H 98 12/24/24 01:57 58 L 21 95 12/24/24 01:45 56 L 22 98 12/24/24 01:30 57 L 25 H 97 12/24/24 01:30 128/70 12/24/24 01:21 64 22 96 12/24/24 01:15 57 L 21 97 12/24/24 01:00 63 22 97 12/24/24 00:54 59 L 20 98 12/24/24 00:42 17 98 12/24/24 00:36 56 L 16 99 12/24/24 00:30 126/72 12/24/24 00:27 58 L 22 98 12/24/24 00:18 63 22 98 12/24/24 00:00 64 29 H 99 12/23/24 23:54 64 21 98 12/23/24 23:42 68 21 98 12/23/24 23:39 66 16 98 12/23/24 23:06 70 27 H 97 12/23/24 23:00 124/68 12/23/24 22:31 78 12/23/24 22:16 81 24 118/74 95 12/23/24 20:41 36.8 C 107 H 18 92 Pulse Ox O2 Del Method O2 Del Method 12/24/24 07:15 Room Air 12/24/24 06:00 Room Air 12/24/24 03:36 Room Air 12/24/24 03:36 97 Room Air 12/24/24 02:36 12/24/24 02:26 12/24/24 02:12 12/24/24 01:57 12/24/24 01:45 12/24/24 01:30 12/24/24 01:30 12/24/24 01:21 12/24/24 01:15 12/24/24 01:00 12/24/24 00:54 12/24/24 00:42 12/24/24 00:36 12/24/24 00:30 12/24/24 00:27 12/24/24 00:18 12/24/24 00:00 12/23/24 23:54 12/23/24 23:42 12/23/24 23:39 12/23/24 23:06 12/23/24 23:00 12/23/24 22:31 12/23/24 22:16 12/23/24 20:41 Room Air PG Care Time/CCT Total # of Minutes Spent Total Time Spent with Patient: Total time spent is greater than 50% in coordination of care (as documented) at patient's floor/unit and/or counseling patient: Coding Level of Care Code 91892 SUB INP/OBS CARE 2MIN Diagnoses Hematochezia K92.1 Anemia of chronic disease D63.8 Stage 3b chronic kidney disease N18.32 Type 2 diabetes mellitus with hyperglycemia, without long-term current use of insulin E11.65 Diabetes mellitus terminologist insulin use: without terminologist use Diabetes mellitus complication status: with hyperglycemia (4) Diabetes mellitus, type 2 Diabetes mellitus penitentiary insulin use: without penitentiary use Diabetes mellitus complication status: with hyperglycemia Qualified Code(s): E11.65 - Type 2 diabetes mellitus with hyperglycemia
[2024-12-24 07:42] LABS: Blood Urea Nitrogen 24.0 mg/dl (6-23); Creatinine Clr Calc Pharmacy 31.3 ml/min; Glucose 87.0 mg/dl (70-99(Fasting)); Iron 47.0 mcg/dl (35-175); Total Iron Binding Cap Calc 325.0 mcg/dl (250-450); Transferrin 232.0 mg/dl (200-360); Transferrin (FE) Percent Satur 14.0 % (20-50)
[2024-12-24] MEDS: INSULIN ASPART PER UNIT CHARGE SC SCH (07:44)
[2024-12-24 07:50] LABS: Hematocrit (blood only) 30.6 % (42.0-52.0); Hemoglobin 10.8 g/dl (14.0-18.0); Mean Corpuscular Hemoglobin 32.5 pg (25.0-34.0); Mean Corpuscular Volume 92.2 fL (80.0-100.0); Platelet Count 152 K/uL (130-400); RDW Standard Deviation 43.7 fL (36.4-46.3); Red Blood Count 3.32 M/uL (4.70-6.10); White Blood Count 7.33 K/ul (4.8-10.8)
[2024-12-24] MEDS: PANTOprazole 40 MG/10 ML IVP IV ONE (08:30)
[2024-12-24] MEDS: FAMOTIDINE 20MG/5ML IV PUSH IV ONE (08:30)
[2024-12-24] MEDS: PANTOprazole 40 MG/10 ML SYR IV SCH (08:59)
[2024-12-24] MEDS: FAMOTIDINE 20MG IV PUSH 20 MG/5 ML SYR IV SCH (08:59)
--- NOTE | 2024-12-24 11:02 | Gastrointestinal Consultation ---
Date of Consultation December 24, 2024 Assessment & Plan (1) Painless rectal bleeding: -Awaiting call back from [facility]/ [facility] regarding his most recent colonoscopy in February 2024 -Bowel prep today for colonoscopy tomorrow -Patient's Plavix currently on hold -Continue to monitor H/H and monitor for further overt GI bleeding Supervising Physician Co-Signing Physician Notes Painless rectal bleeding. History of multiple colonoscopies for large polyps. Including a tertiary referral to [place]. Patient was told to return in a year he is at the year. Now comes here because of rectal bleeding. Hemodynam ically stable. Very hard of hearing some of the history comes from his . I think at this point to be reasonable to prep him evaluate whether this is polyp neoplasia or hemorrhoids. Patient agreeable. Prep for tomorrow. Patient does take Plavix which has been on hold since admission. Hemoglobin 11.8 yesterday 10.8 today. However does fluctuate in the range of 10-11. History of Present Illness Reason for Consultation: Rectal bleeding Attending Physician: Adalberto Concepcion DO History of Present Illness 84-year-old male PMHx CAD, T2DM, GERD, HLD, HTN, BPH, CKD stage IIIb, BPH with LUTS, recurrent UTIs, and bilateral hearing loss presenting for blood on the toilet tissue. He notes the blood was bright red and more significant than previous episodes of rectal bleeding. He reportedly has had this issue previously. He has undergone several colonoscopies in the past 2 years through [facility] and another GI location in [place], [place]. He notes that he at some point several years ago had a colonoscopy that identified a very large polyp that required advanced endoscopy to remove it. He reportedly had a colonoscopy in February 2024 but I do not currently have results of this. I am awaiting a call back from [facility] regarding the results of that colonoscopy. Patient notes he was to have another colonoscopy within a year from the 02/2024 scope. He does take Plavix but this is currently held. He denies abdominal pain or rectal pain. H/H 10.8/30.6. He denies other issues at present. CT abdomen/pelvis unremarkable. Allergies Allergy/AdvReac Type Severity Reaction Status Date / Time bee venom protein (honey bee) Allergy Severe Throat/Tongue/Eye Verified 12/02/24 11:40 Swelling Iodinated Contrast Media Allergy Intermediate Itching/welts Verified 12/02/24 11:40 on abdomen Home Medications Medication Instructions Recorded Confirmed Type metformin 750 mg tablet,extended 750 mg PO BID 02/23/18 12/24/24 History release 24 hr nitroglycerin 0.4 mg sublingual 1 tab sublingual UD PRN Pain 02/23/18 12/24/24 History tablet (Nitrostat) cholecalciferol (vitamin D3) 25 1,000 units PO QPM 10/12/18 12/24/24 History mcg (1,000 unit) capsule mecobalamin (vitamin B12) 1,000 1,000 mcg PO QAM 05/13/19 12/24/24 History mcg chewable tablet multivitamin (Daily Multi-Vitamin 1 tab PO QAM 05/19/20 12/24/24 History tablet) metoprolol tartrate 25 mg tablet 12.5 mg PO BID 10/26/20 12/24/24 History glipizide 5 mg tablet, extended 5 mg PO QAM 12/23/21 12/24/24 History release 24 hr clopidogrel 75 mg tablet 75 mg PO QAM 05/03/23 12/24/24 History gabapentin 100 mg capsule 100 mg PO TID 05/03/23 12/24/24 History clotrimazole 1 % topical solution 1 applic topical BID 8 weeks #30 mL 11/27/23 12/24/24 Rx famotidine 20 mg tablet (Pepcid) 20 mg PO BID 08/29/24 12/24/24 History atorvastatin 10 mg tablet 10 mg PO HS 90 days #90 tabs 10/24/24 12/24/24 Rx lisinopril 10 mg tablet 10 mg PO QPM #90 tabs 10/30/24 12/24/24 Rx Patient History Medical History COVID-19 Complicated urinary tract infection TIA (transient ischemic attack) Recurrent UTI Ascending aorta dilation History of TIA (transient ischemic attack) 05/03/23, treated at [facility] Emergency Room. had a f/u virtual visit with [facility] Neurology. also had a TIA Oct 2022 -> "did not last long, did not seek treatment at that time" BPH (benign prostatic hyperplasia) Hypertension Primary osteoarthritis, right shoulder Anemia Chronic, baseline hgb 11-12 range per chart review CAD (coronary artery disease) 2013= stent x1, 2014= stent x1, 2016= stents x3-F/UDR KIKI COSTELLO Obesity Osteoarthritis Kidney stones hx GERD (gastroesophageal reflux disease) Controlled Diabetes mellitus, type 2 NIDDM Myocardial Infarction ~2012 Hyperlipidemia Surgical History 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 arthroplasty H/O right inguinal hernia repair (03/25/21) Open Right Inguinal Hernia Repair with Mesh(Right) - Kye Beaulieu MD, FACS 03/25/2021 History of total shoulder replacement Right reverse TSA (03/23/18): Grade 2 view, MAC#4, ETT 7.5 + PNB at [facility]. No issues per post-op anesthesia progress note. H/O colonoscopy Previous back surgery + hardware Hx of transurethral resection of prostate multiple (last done 2021 at [facility]) History of cholecystectomy History of total hip arthroplasty Left H/O cystoscopy + stent/stone extraction History of cardiac cath 2012= stent x1, 2013= stent x1, 2016= stents x3 Family History Mother Family hx of colon cancer Other Heart disease No family history of adverse response to anesthesia Social History Smoking Status: Former smoker Tobacco Type: Cigarettes Age Started Using Tobacco: 12; Age Quit Using Tobacco: 25; packs per day: 0; Second Hand Exposure: No; Do You Dip or Chew Tobacco: No; Hx Alcohol Use: No Hx Substance Use: No Preferred Language: Yakut Communication Ability: Impaired Visual Impairment: No Limitations Hearing Ability: Use of Hearing Aid Research Laboratory Manager Required: No Beliefs That Will Affect Care: None marital status: Current Living Situation: Spouse current occupational status: retired How many Children do You have: 4 Other Information That Helps Us Care for You: No Feels Safe at Home: Yes Safety Concerns: Feels Safe At This Time Childhood Exposure to Second-Hand Smoke: Yes Diet: regular caffeine: Yes during the past year weight has: remained stable Dental Care, Regularly: No Physical Activity Frequency: Does not Exercise Seatbelt Use: always Sunscreen Use: No Assistive Devices: None Review of Systems Constitutional: no fever and no chills Respiratory: no cough and no dyspnea Gastrointestinal: + blood in stools; no abdominal pain, no coffee ground emesis, no hematemesis, no diarrhea/loose stools and no melena Physical Exam Constitutional: well developed Respiratory: normal respiratory effort Cardiovascular: Rate/Rhythm: regular rate Gastrointestinal (Abdomen): normal bowel sounds, soft, nontender, no hepatosplenomegaly Psychiatric: Orientation: alert and oriented x 3 Results & Data Vital Signs (Past 12 Hours) Vital Signs Temp Pulse Pulse Resp BP BP Pulse Ox 12/24/24 07:41 53 L 12/24/24 07:15 36.6 C 61 18 110/62 97 12/24/24 06:00 55 L 16 110/62 96 12/24/24 03:36 57 L 17 135/80 97 12/24/24 03:36 12/24/24 02:36 59 L 23 96 12/24/24 02:26 62 12/24/24 02:12 60 26 H 98 12/24/24 01:57 58 L 21 95 12/24/24 01:45 56 L 22 98 12/24/24 01:30 57 L 25 H 97 12/24/24 01:30 128/70 12/24/24 01:21 64 22 96 12/24/24 01:15 57 L 21 97 12/24/24 01:00 63 22 97 12/24/24 00:54 59 L 20 98 12/24/24 00:42 17 98 12/24/24 00:36 56 L 16 99 12/24/24 00:30 126/72 12/24/24 00:27 58 L 22 98 12/24/24 00:18 63 22 98 12/24/24 00:00 64 29 H 99 12/23/24 23:54 64 21 98 12/23/24 23:42 68 21 98 12/23/24 23:39 66 16 98 12/23/24 23:06 70 27 H 97 12/23/24 23:00 124/68 Pulse Ox O2 Del Method O2 Del Method 12/24/24 07:41 12/24/24 07:15 Room Air 12/24/24 06:00 Room Air 12/24/24 03:36 Room Air 12/24/24 03:36 97 Room Air 12/24/24 02:36 12/24/24 02:26 12/24/24 02:12 12/24/24 01:57 12/24/24 01:45 12/24/24 01:30 12/24/24 01:30 12/24/24 01:21 12/24/24 01:15 12/24/24 01:00 12/24/24 00:54 12/24/24 00:42 12/24/24 00:36 12/24/24 00:30 12/24/24 00:27 12/24/24 00:18 12/24/24 00:00 12/23/24 23:54 12/23/24 23:42 12/23/24 23:39 12/23/24 23:06 12/23/24 23:00 PG Care Time/CCT Total # of Minutes Spent Total Time Spent with Patient: Total time spent is greater than 50% in coordination of care (as documented) at patient's floor/unit and/or counseling patient: Coding Level of Care Code 82606 INT INP/OBS CARE 3/75MIN Diagnoses Painless rectal bleeding K62.5
[2024-12-24] MEDS: LAVAGE SOLUTION 4000ML PO SCH (18:16)
[2024-12-24] MEDS: MELATONIN 3 MG TAB PO PRN (20:45)
[2024-12-25] MEDS: LACTATED RINGER'S 1,000 ML IV SCH (08:24)
[2024-12-25 08:40] LABS: Hematocrit (blood only) 29.4 % (42.0-52.0); Hemoglobin 10.2 g/dl (14.0-18.0)
[2024-12-25 09:14] LABS: Albumin Level 3.6 gm/dl (3.4-5.0); Anion Gap 10.0 (3-11); Blood Urea Nitrogen 15.0 mg/dl (6-23); Calcium 8.7 mg/dl (8.6-10.3); Carbon Dioxide 23.0 mmol/L (21-32); Chloride 111.0 mmol/L (98-107); Creatinine Clr Calc Pharmacy 36.6 ml/min; Glucose 126.0 mg/dl (70-99(Fasting)); Potassium 4.1 mmol/L (3.5-5.1); Sodium 144.0 mmol/L (136-145)
--- NOTE | 2024-12-25 10:42 | History & Physical Bridge Note ---
Date of Service December 25, 2024 History & Physical Bridge Note I have examined the patient, reviewed the History & Physical and in the interval since the performance of the History & Physical I have noted the following changes of clinical significance: no changes noted Patient is an 84 yo male awaiting colonoscopy. He has been NPO. He completed a bowel prep last evening and per nursing, his stools are clear to yellow liquid without solid stool. H/H 10.2/29.4. Keep NPO and proceed with colonoscopy today. Supervising Physician Co-Signing Physician Notes Hemoglobin stable. For evaluation of rectal bleeding. Informed consent obtained
[2024-12-25 11:44] VITALS: RESP 16
--- NOTE | 2024-12-25 11:47 | Anesthesiology Consultation ---
Date of Service December 25, 2024 Assessment & Plan Chart Review Chart Review: Acceptable Risk for Surgery and Patient NOT seen in Pre Admission Testing Consults Requested none ASA ASA4 Proposed Anesthesia Anesthesia Type: MAC Risk / Benefits Reviewed With: PT / POA / Parent / Guardian, Accepts Plan and Informed Consent Obtained History Surgery Operation Date: 12/25/24 16:30 Proposed Procedures p Colonoscopy Dr. Ren Mcclure MD Height/Weight Height: 5 ft 8 in Weight: 86.8 kg Allergies Allergy/AdvReac Type Severity Reaction Status Date / Time bee venom protein (honey bee) Allergy Severe Throat/Tongue/Eye Verified 12/02/24 11:40 Swelling Iodinated Contrast Media Allergy Intermediate Itching/welts Verified 12/02/24 11:40 on abdomen Medications Home Medications Medication Instructions Recorded Confirmed Last Taken metformin 750 mg tablet,extended 750 mg PO BID 02/23/18 12/24/24 07/25/23 22:00 release 24 hr nitroglycerin 0.4 mg sublingual 1 tab sublingual UD PRN Pain 02/23/18 12/24/24 10/25/20 tablet (Nitrostat) cholecalciferol (vitamin D3) 25 1,000 units PO QPM 10/12/18 12/24/24 07/25/23 22:00 mcg (1,000 unit) capsule mecobalamin (vitamin B12) 1,000 1,000 mcg PO QAM 05/13/19 12/24/24 07/25/23 22:00 mcg chewable tablet multivitamin (Daily Multi-Vitamin 1 tab PO QAM 05/19/20 12/24/24 07/25/23 22:00 tablet) metoprolol tartrate 25 mg tablet 12.5 mg PO BID 10/26/20 12/24/24 07/26/23 04:00 glipizide 5 mg tablet, extended 5 mg PO QAM 12/23/21 12/24/24 07/25/23 release 24 hr clopidogrel 75 mg tablet 75 mg PO QAM 05/03/23 12/24/24 07/20/23 gabapentin 100 mg capsule 100 mg PO TID 05/03/23 12/24/24 07/26/23 04:00 clotrimazole 1 % topical solution 1 applic topical BID 8 weeks #30 mL 11/27/23 12/24/24 Unknown famotidine 20 mg tablet (Pepcid) 20 mg PO BID 08/29/24 12/24/24 Unknown atorvastatin 10 mg tablet 10 mg PO HS 90 days #90 tabs 10/24/24 12/24/24 Unknown lisinopril 10 mg tablet 10 mg PO QPM #90 tabs 10/30/24 12/24/24 Unknown Active Medications Generic Name Dose Route Start Last Admin Trade Name Freq PRN Reason Stop Dose Admin Pantoprazole Sodium 40 mg in 10 mls @ 5 mls/min 12/24/24 09:00 12/25/24 08:12 Protonix IV 01/23/25 08:59 Not Given BID [place] Famotidine 20 mg in 5 mls @ 2.5 mls/min 12/24/24 09:00 12/25/24 08:48 Pepcid 20mg Iv Push IV 01/23/25 08:59 2.5 mls/min Q12 [place] Administration Lactated Ringer's 1,000 mls @ 125 mls/hr 12/25/24 08:00 12/25/24 08:24 Lr IV 12/25/24 15:59 125 mls/hr .Q8H [place] Administration Insulin Aspart 0 units 12/24/24 07:30 12/25/24 08:29 Insulin Aspart Per Unit Charge SC 01/23/25 07:29 Not Given ACHS [place] Melatonin 3 mg 12/24/24 03:10 12/24/24 20:45 Melatonin 3 Mg Tab PO 01/23/25 03:09 3 mg HS PRN Administration Sleep NPO Date Last Intake of Fluids: 12/25/24 Time Last Intake of Fluids: 03:00 Date Last Intake of Solids: 12/23/24 Time Last Intake of Solids: 18:00 Past Medical History Medical History COVID-19 Complicated urinary tract infection TIA (transient ischemic attack) Recurrent UTI Ascending aorta dilation History of TIA (transient ischemic attack) 05/03/23, treated at [facility] Emergency Room. had a f/u virtual visit with [facility] Neurology. also had a TIA Oct 2022 -> "did not last long, did not seek treatment at that time" BPH (benign prostatic hyperplasia) Hypertension Primary osteoarthritis, right shoulder Anemia Chronic, baseline hgb 11-12 range per chart review CAD (coronary artery disease) 2013= stent x1, 2014= stent x1, 2016= stents x3-F/UDR KIKI COSTELLO Obesity Osteoarthritis Kidney stones hx GERD (gastroesophageal reflux disease) Controlled Myocardial Infarction ~2012 Hyperlipidemia Exercise / Class Metabolic Activity III < 4 Walking/Shop/Light housework Past Family History Family History Mother Family hx of colon cancer Other Heart disease No family history of adverse response to anesthesia Past Surgical History Surgical History 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 arthroplasty H/O right inguinal hernia repair (03/25/21) Open Right Inguinal Hernia Repair with Mesh(Right) - Kye Beaulieu MD, FACS 03/25/2021 History of total shoulder replacement Right reverse TSA (03/23/18): Grade 2 view, MAC#4, ETT 7.5 + PNB at [facility]. No issues per post-op anesthesia progress note. H/O colonoscopy Previous back surgery + hardware Hx of transurethral resection of prostate multiple (last done 2021 at [facility]) History of cholecystectomy History of total hip arthroplasty Left H/O cystoscopy + stent/stone extraction History of cardiac cath 2012= stent x1, 2013= stent x1, 2016= stents x3 Past Anesthesia History No Hx of Anesthesia Complications and No Family Hx of Anesthesia Complications History of PONV No Hx of PONV and No Hx of Motion Sickness Social History Smoking Status: Former smoker tobacco type: cigarettes Do You Dip or Chew Tobacco: No Hx Alcohol Use: No alcohol intake frequency: a few times a month Hx Substance Use: No substance use type: does not use Physical Exam Vital Signs Last Vital Signs Temp 36.5 C 12/25/24 11:43 Pulse 79 12/25/24 11:43 Resp 16 12/25/24 11:43 BP 158/82 H 12/25/24 11:43 Pulse Ox 98 12/25/24 11:43 O2 Del Method Room Air 12/25/24 11:43 Constitutional + obese; no acute distress ENMT Mouth: + dentition abnormality and + edentulous Thyromental Distance: > or= 3.5 Finger Breadths Mallampati Class: II Neck normal visual inspection and trachea midline; neck extension not limited and no facial hair Respiratory normal respiratory effort Auscultation: + diminished lung sounds Cardiovascular Rate/Rhythm: regular rate and regular rhythm Heart Sounds: no murmur Vessels: no carotid bruit Musculoskeletal Spine: normal cervical ROM and no pain with cervical ROM Extremities: extremities normal to inspection; full ROM of extremities Neurologic moves all extremities Motor/Sensory: no sensory deficit Psychiatric Orientation: alert and oriented x 3 Testing Laboratory Results 12/25/24 07:47 12/25/24 07:47 PT 11.0 Seconds (9.0-12.0) 12/23/24 20:48 INR 1.0 (0.9-1.1) 12/23/24 20:48 APTT 26 Seconds (21-31) 12/23/24 20:48 Urine Color Yellow 12/24/24 03:03 Urine Appearance Clear (Clear) 12/24/24 03:03 Urine pH 5.5 (4.5-7.5) 12/24/24 03:03 Ur Specific [place] 1.019 (1.000-1.030) 12/24/24 03:03 Urine Protein Trace (Negative) H 12/24/24 03:03 Urine Glucose (UA) Negative (Negative) 12/24/24 03:03 Urine Ketones Negative (Negative) 12/24/24 03:03 Urine Nitrite Negative (Negative) 12/24/24 03:03 Ur Leukocyte Esterase Negative (Negative) 12/24/24 03:03 Urine WBC (Auto) 0-5 /hpf (0-5) 12/24/24 03:03 Urine RBC (Auto) 0-2 /hpf (0-2) 12/24/24 03:03 U Hyaline Cast (Auto) 0-2 /lpf (0-2) 12/24/24 03:03 U Epithel Cells (Auto) 0-2 /hpf (0-2) 12/24/24 03:03 Urine Bacteria (Auto) None Seen (None Seen) 12/24/24 03:03 Blood Type A Negative 12/23/24 21:02 Antibody Screen NEGATIVE 12/23/24 21:02 12/25/24 07:34 POC Glucose 127 H Electrocardiogram Date: 12/23/24 Findings: + RBBB and + ST @ (@ 104)
[2024-12-25] MEDS ORDERED: ATROPINE SULFATE 0.1 MG/ML 10ML SYR IV PRN (11:48)
--- NOTE | 2024-12-25 11:49 | Electrocardiogram Report ---
Test Reason : Blood Pressure : */* mmHG Vent. Rate : 104 BPM Atrial Rate : 104 BPM P-R Int : 256 ms QRS Dur : 122 ms QT Int : 358 ms P-R-T Axes : 53 -25 -8 degrees QTcB Int : 470 ms Sinus tachycardia with 1st degree A-V block Right bundle branch block Inferior infarct , age undetermined T wave abnormality, consider lateral ischemia Abnormal ECG When compared with ECG of 23-Feb-2024 17:54, Inferior infarct is now Present Confirmed by Julien Grier ([id number]) on 12/25/2024 11:48:58 AM Referred By: REFERRED SELF Confirmed By: Julien Grier
--- NOTE | 2024-12-25 14:09 | Communication Note ---
Date of Service: December 25, 2024 Colonoscopy No blood in the lower GI tract. Diverticulosis and hemorrhoids. A tattoo and scar identified in the distal ascending and proximal transverse. Second scar identified mid transverse. Quite small no residual polyps. Potential diverticular bleed versus hemorrhoids. No signs of polyp or neoplasia. Can resume Plavix okay for discharge from a GI perspective
--- NOTE | 2024-12-25 14:14 | Anesthesiology Progress Note ---
Date of Service December 25, 2024 Anesthesia Post Procedure Vital Signs Vital Signs: Temp Pulse Pulse Pulse Resp BP Pulse Ox 12/25/24 14:03 61 16 94/48 L 100 12/25/24 11:43 36.5 C 79 16 158/82 H 98 12/25/24 10:58 36.5 C 74 20 138/64 97 12/25/24 08:00 103 H 12/25/24 07:44 36.8 C 58 L 18 137/55 L 98 12/25/24 03:34 87 12/24/24 22:40 36.7 C 84 18 114/66 97 12/24/24 19:24 36.5 C 77 18 150/76 H 97 12/24/24 16:37 64 12/24/24 16:24 36.3 C L 68 20 165/68 H 96 O2 Del Method 12/25/24 14:03 Room Air 12/25/24 11:43 Room Air 12/25/24 10:58 Room Air 12/25/24 08:00 12/25/24 07:44 Room Air 12/25/24 03:34 12/24/24 22:40 Room Air 12/24/24 19:24 Room Air 12/24/24 16:37 12/24/24 16:24 Room Air Transfer of Care Handoff Completed per policy Notes Mental Status: alert / awake / arousable Patient Amnestic to Procedure: Yes Nausea / Vomiting: adequately controlled Pain: adequately controlled Airway Patency, RR, SpO2: stable & adequate BP & HR: stable & adequate Hydration State: stable & adequate Anesthetic Complications: no major complications apparent
[2024-12-25] MEDS: LIDOCAINE 2% 2 ML VIAL/AMP(20MG/ML) INFIL ONE (15:17)
[2024-12-25] MEDS: PROPOFOL IV EMULSION 10 MG/ML 20 ML VIAL IV ONE ×2 (15:17)
[2024-12-25 15:40] VITALS: BP 135/73; PULSE 58; TEMP 97.9; O2SAT 98
--- NOTE | 2024-12-25 16:37 | Communication Note ---
Date of Service: December 25, 2024 By CMS guidelines, a determination that the admission or continued stay is not medically necessary has been made by a member of the UR committee and a ph ysician for this hospital stay, therefore a Code 44 will be completed and the Inpatient admission will be changed to outpatient.
--- NOTE | 2024-12-25 16:39 | Discharge Summary ---
Discharge Summary Date of Service December 25, 2024 Principal Dx & Hospital Course #1 = Principal Diagnosis (1) Painless rectal bleeding: (2) Anemia: Breanne Mcgovern is an 84 year old male admitted to [facility] from December 24 - 2024 due to lower gastrointestinal bleed (bright red blood). Colonoscopy did not reveal cause of his bleeding and suspect this was due to either diverticular or hemorrhoidal bleeding. Given this has resolved no change in medications or management is warranted for this. Clopidogrel was resumed. Hemoglobin 10.2 on discharge from 10.5 on admission. Notes For Next Care Provider Routine follow up Medication Changes From Visit Glipizide stopped due to HbA1C 5.2 in November and risk of hypoglycemia Admission HPI Per Admitting Provider 84-year-old male PMHx CAD, T2DM, GERD, HLD, HTN, BPH, CKD stage IIIb, BPH with LUTS, recurrent UTIs, and bilateral hearing loss presenting for blood in his toilet night of arrival. History is limited as the patient is incredibly hard of hearing and so communication on my part is only through writing with pen and paper. Patient states that on the night of arrival he had had a bowel movement which felt normal in nature, stating that it was light in color and normal size/consistency. He had completed this bowel movement and cleaned himself up but when he went to stand up and walk with the toilet, he had the urge that he had to have another bowel movement. He states at that time he had completed the bowel movement and then wiped himself and noticed that there was right red blood on the toilet paper. He then noticed bright red blood in the toilet bowl. He states that he has had this happen before and has been diagnosed with hemorrhoids in the past per his doctors report. He states that on prior colonoscopies nothing had been reported that was abnormal. He did not have any abdominal pain with the bowel movements or prior to them. He has no other symptoms. Also denies any dizziness/lightheadedness, chest pain, or shortness of breath. He does talk about how he has difficulties with his hearing, likely secondary to exposures in the past, and also has issues with cerumen. He is without chest pain, SOB, palpitations, abdominal pain, N/V/C, URI symptoms, fever/chills, LUTS, numbness/tingling, weakness, syncope, or falls. ED evaluation reveals CBC without leukocytosis or leukopenia, H&H 11.8/34.1; PT/INR WNL; CMP chloride 108, BUN 24, creatinine 2.09, glucose 139, AST 12; troponin 4.5, pending repeat; CTAP no acute findings.; Provided with pantoprazole 80 mg IV and famotidine 20 mg IV in ED. Please see Dr. Paris's attestation for adjustments/additions to treatment plan. Discharge Exam Respiratory normal respiratory effort, lungs clear to auscultation Cardiovascular RRR, no murmur, no edema Gastrointestinal (Abdomen) normal bowel sounds, soft, nontender, no hepatosplenomegaly Discharge Plan Discharge Items Patient Disposition: Home - Self-Care Reason For Visit: Gastrointestinal bleed Discharge Diagnosis: Lower gastrointestinal bleed Condition on Discharge: Good Activity: Resume your previous activity Non-emergency contact: Primary Care Provider Call non-emergency contact if: you have any medication questions and your symptoms worsen Follow-up/Referrals: Maciel German, [Primary Care Provider] - 01/01/25 9:20 am Diet: Carb Consistent or DM2 Addtl Attending Provider Instructions: You were admitted to [facility] from December 24 - 2024 due to lower gastrointestinal bleed (bright red blood). Colonoscopy did not reveal cause of your bleeding and suspect this was due to either diverticular or hemorrhoidal bleeding. Given this has resolved no change in medications or management is warranted for this. Hemoglobin A1C 5.2 on November 30 2024. This suggests over treatment. Recommend stopping glipizide as this can lead to glucose levels that are too low. Recommend discussing this further with your primary care provider but stopping it currently. Pending Studies at Discharge: No Stand-Alone Forms: My [facility], Smoking Cessation Medications and DC Order Prescriptions: Continued atorvastatin 10 mg tablet 10 mg PO HS 90 Days Qty: 90 3RF lisinopril 10 mg tablet 10 mg PO QPM Qty: 90 3RF mecobalamin (vitamin B12) 1,000 mcg tablet,chewable 1,000 mcg PO QAM cholecalciferol (vitamin D3) 1,000 unit capsule 1,000 units PO QPM multivitamin [Daily Multi-Vitamin] Tablet 1 tab PO QAM famotidine [Pepcid] 20 mg tablet 20 mg PO BID clotrimazole 1 % solution 1 applic topical BID 56 Days Qty: 30 0RF Rx Instructions: Apply to right ear canal nitroglycerin [Nitrostat] 0.4 mg Tablet, Sublingual 1 tab Sublingual UD PRN (Reason: Pain) metoprolol tartrate 25 mg tablet 12.5 mg PO BID gabapentin 100 mg capsule 100 mg PO TID Patient Comments: May wean down to twice daily x 1-2 weeks, then once daily. May wean off after 1-2 weeks. Discontinued glipizide 5 mg tablet extended release 24hr 5 mg PO QAM No Action clopidogrel 75 mg tablet 75 mg PO QAM Qty: 90 3RF Hold Instructions: Resume on 07/28/23. metformin 750 mg tablet extended release 24 hr 750 mg PO BID Qty: 180 3RF Discharge Orders: Discharge Order (Routine); Ordered 12/25/24 Ordered By: Rudolph Palacios Admission Data Admit Date/Time: 12/24/24 00:54 Attending Provider: Rudolph Palacios Admit Provider: Jovani Paris Primary Care Provider: Maciel German Other Providers: Jovani Paris; Lukasz Mcclure Other Interventions: Discharge Summary Assessment (RN) Last Done: 12/25/24 16:53 Hospital Stay Data Consultations 12/23/24 23:55 ED Decision to Admit Stat 12/24/24 03:10 Consult Gastroenterology Routine Procedures Performed Operation Date: 12/25/24 16:30 Actual Procedures p Colonoscopy - Lukasz Mcclure MD Diagnostic Imagining Performed 12/23/24 21:53 CT abd pelvis wo con Stat Pending Results Patient Have Any Pending Studies at Discharge: No Discharge Instructions Given to Patient (Per Discharging Provider) You were admitted to [facility] from December 24 - 2024 due to lower gastrointestinal bleed (bright red blood). Colonoscopy did not reveal cause of your bleeding and suspect this was due to either diverticular or hemorrhoidal bleeding. Given this has resolved no change in medications or management is warranted for this. Hemoglobin A1C 5.2 on November 30 2024. This suggests over treatment. Recommend stopping glipizide as this can lead to glucose levels that are too low. Recommend discussing this further with your primary care provider but stopping it currently. Total Time Total Time Spent Total Time Spent (In Minutes): 35 Total Time Includes: Examination of the Patient, Discharge Planning, Medication Reconciliation and Communication With Other Providers (gastroenterology) Coding Level of Care Code 22211 INP/OBS DISCH >30 MIN Diagnoses Painless rectal bleeding K62.5 Anemia D64.9
--- NOTE | 2024-12-26 08:34 | GI REPORT ---
[facility] Patient: MERCEDES EDWARDS : 1940 Sex at : Male Age: 84 Years Procedure: Colonoscopy Date: 12/25/2024 Attending Physician: Lukasz Mcclure MD Referring MD: Rudolph Palacios MD Indications: - High risk colon cancer surveillance: Personal history of colonic polyps - Altered bowel pattern - Rectal bleeding hematochezia Medications: - Monitored Anesthesia Care Complications: - No immediate complications. Estimated Blood Loss: - Estimated blood loss: None. Procedure: - The adult colonscope was introduced through the anus and advanced to the cecum, identified by appendiceal orifice and ileocecal valve. - The colonoscopy was performed without difficulty. - The quality of the bowel preparation was good. Findings: - The perianal examination was normal. - Internal hemorrhoids were found during retroflexion. The hemorrhoids were medium-sized. - Multiple diverticula were found in the sigmoid colon. - A post polypectomy scar was found in the transverse colon and in the ascending colon. There was no evidence of the previous polyp. - The exam was otherwise without abnormality on direct and retroflexion views. Impression: - Internal hemorrhoids. - Diverticulosis in the sigmoid colon. - Post-polypectomy scars in the transverse colon and in the ascending colon. - The examination was otherwise normal on direct and retroflexion views. - No specimens collected. - No blood in the lower GI tract. He has diverticulosis which could be a source for bleeding though there is no blood in the diverticular pouches today. There is also internal hemorrhoids which theoretically could be a source for bleeding especially patient on blood thinners. In regards to his history of colonoscopy with multiple polypectomies in the past. Identified 2 scars in the colon 1 in the proximal transverse distal ascending colon there is a tattoo in this area. Scar was free of any remaining tissue. In the mid transverse another scar was identified again without remaining tissue. Unfortunately there are no photographs available as the [employer] imaging system was down secondary to a [employer] issue. Recommendation: - Repeat colonoscopy in 2 years for surveillance. - Can resume blood thinners. Procedure Code(s): - G0105, Colorectal cancer screening; colonoscopy on individual at high risk Diagnosis Code(s): - Z86.0100, Personal history of colon polyps, unspecified - Z98.890, Other specified postprocedural states - K64.8, Other hemorrhoids - K57.30, Diverticulosis of large intestine without perforation or abscess without bleeding CPT(R) - 2023 copyright [employer]. All Rights Reserved. The CPT codes, CCI edits and ICD codes generated are intended as suggestions and were generated based on input data. These codes are preliminary and upon control systems drafting officer review may be revised to meet current compliance and payer requirements. The provider is responsible for the final determination of appropriate codes, and modifiers. Lukasz Mcclure MD This document has been electronically signed. Note Initiated:12/25/2024 Note Completed:12/26/2024 8:34 AM \\[email or web address]\Central\InterfaceData\Data\Provation\Results\LIVE\[id number]
== END 2024-12-25 17:31 | disposition home or self-care (01) | DRG 378 ==
LOC: ED 20:07 → EDINP 12-24 00:54 → INTOOBSV 12-24 00:54 → SUATTDRO 12-24 00:54 → 2N 12-24 03:11